=== PATIENT | male | born 1950 | race Caucasian/White ===

== ENCOUNTER → 2016-09-20 | Outpatient (CLI) | payer MEDICARE, OTHER ==
[2016-03-27 14:15] VITALS: BP 96/54
[~2016-09-20] MED LIST: ASPI325T8 PO; ATORVASTATIN CA80 MG PO; BACL10TA PO; CHOL10003 AD; CLOP75TA PO; CYAN25008 PO; DURAMORPH PO; FLAX1CAP PO; GINS100C3 PO; HUM100VI5 SQ; HYDR-2762 PO; INSU100C SQ; LISI40TA PO; LOVA10TA PO; METF-620 PO; METO50TA2 PO; NIAC500T9 PO; NITR0.4T SL; PANT40TA5 PO; SITA100T PO; TAMS0.4C2 PO; UBID100T5 PO
--- NOTE | 2016-09-20 16:31 | KCIC ---
History: Chronic joint pain. Comparison: None. Findings: AP and frog-leg views of the right hip. No acute fracture or dislocation is identified. Mild degeneration is seen with minimal osteophyte formation. AP and frog-leg views of the left hip. No acute fracture or dislocation is identified. Mild degeneration is seen with minimal marginal osteophyte formation. Impression: Mild bilateral hip degeneration. Electronically signed by: Marciano Leblanc MD (09/20/2016 4:28 PM)
--- NOTE | 2016-09-20 16:34 | KCIC ---
History: Chronic joint pain. Comparison: None. Findings: AP, lateral, and oblique views of the right knee. No acute fracture or dislocation is identified. There is evidence of joint effusion. Mild-moderate medial compartment degeneration is seen with marginal osteophyte formation and mild loss of joint space. Lateral and patellofemoral compartments demonstrate mild degeneration with preservation of the joint space. AP, lateral, and oblique views of the left knee. No acute fracture or dislocation is identified. Mild tricompartment degeneration is seen. There is evidence of joint effusion. Mild heterotopic calcification is seen adjacent to the medial femoral metaphysis, may represent previous medial collateral ligamentous injury (Dayton-Stieda). Impression: 1. No acute osseous traumatic injury identified in either knee. 2. Bilateral knee joint effusions are suspected. 3. Tricompartmental degeneration of both knees, right worse than left. Electronically signed by: Marciano Leblanc MD (09/20/2016 4:31 PM)
--- NOTE | 2016-09-20 16:38 | KCIC ---
Bilateral ankles Indication:Chronic joint pain Findings: Right ankle: The ankle mortise is intact. The talar dome is well centered within the tibial plafond. No fractures are identified. Ankle joint space is well-maintained. There is no widening of the tibiofibular syndesmosis. Soft tissues are unremarkable. Left ankle: The ankle mortise is intact. The talar dome is well centered within the tibial plafond. No fractures are identified. Ankle joint space is well-maintained. There is no widening of the tibiofibular syndesmosis. Soft tissues are unremarkable. Impression: Unremarkable exam of the bilateral ankles. Electronically signed by: Vipin Alvarez MD (09/20/2016 4:35 PM)
--- NOTE | 2016-09-20 16:42 | KCIC ---
3 views bilateral feet INDICATION: Chronic joint pain FINDINGS: The lateral view of the left foot demonstrates a possible nondisplaced avulsion fracture at the base of the fifth metatarsal. No erosive lesions. Joint spaces are well-maintained. There is mild metatarsus primus varus with hallux valgus deformity of the left foot. IMPRESSION: Possible nondisplaced avulsion fracture from the base of the fifth metatarsal of the left foot. Correlate for focal pain in this location. This could represent a projectional artifact. Mild bunion deformity on the left. Electronically signed by: Vipin Alvarez MD (09/20/2016 4:39 PM)
== END | disposition home or self-care (01) ==
LOC: KCIC 15:15
PROVIDERS: ATTEND Family Medicine
DX: M20.12 Hallux valgus (acquired), left foot (principal); M21.172 Varus deformity, not elsewhere classified, left ankle; M21.612 Bunion of left foot
CPT/HCPCS: 73502; 73562; 73610; 73630

== ENCOUNTER → 2016-11-12 | Outpatient (CLI) | payer MEDICARE, OTHER ==
[2016-03-27 14:15] VITALS: BP 96/54
--- NOTE | 2016-11-13 11:42 | RAD ---
APPROVED REPORT Patient Location: OUT-PATIENT Indications Rest Pain:Bilaterally VELOCITY AND DOPPLER WAVEFORM ANALYSIS RIGHT cm/secWaveformSeverity LEFT c m/secWaveformSeverity Ext Iliac Art. 155.0TriphasicExt Iliac Art. 174.0Triphasic pCFA 165.0TriphasicpCFA 133.0Triphasic dCFA 130.0TriphasicdCFA 103.0Triphasic Prof Fem Art. 90.0BiphasicProf Fem Art. 57.0Biphasic Fem Art Prox. 124.0TriphasicFem Art Prox. 117.0Triphasic Fem Art Mid. 144.0TriphasicFem Art Mid. 151.0Triphasic Fem Art Dist. 140.0TriphasicFem Art Dist. 115.0Triphasic Pop Art(AK) 107.0TriphasicPop Art(AK) 162.0Triphasic Pop Art(BK) 105.0TriphasicPop Art(BK) 141.0Triphasic SEWER PIPE PRESS OPERATOR Prox. 155.0TriphasicPTA Prox. 103.0Triphasic SEWER PIPE PRESS OPERATOR Dist. 114.0TriphasicPTA Dist. 156.0Triphasic Per Art Mid. 77.0BiphasicPer Art Mid. 87.0Biphasic JOSE CARLOS Prox. 89.0BiphasicATA Prox. 67.0Triphasic Findings Uriarte scale images of the bilateral lower extremity arterial vessels do not reveal any significant ath erosclerotic burden. Spectral waveforms and color Doppler are mostly triphasic and without turbulence. No high-grade flow- limiting stenosis is identified in the bilateral lower extremities. Critical Notification Critical Value: No <Conclusion> 1. No high-grade flow-limiting stenosis identified bilaterally with three-vessel runoff below the kne e.
== END | disposition home or self-care (01) ==
LOC: US 15:00
PROVIDERS: ATTEND Internal Medicine Cardiovascular Disease
DX: M79.604 Pain in right leg (principal); M79.605 Pain in left leg
CPT/HCPCS: 93925

== ENCOUNTER 2017-11-09 15:01 | Inpatient (IN) | payer MEDICARE, OTHER ==
[~2017-11-09] VITALS: Ht 180.3 cm; Wt 111.3 kg
[~2017-11-09 15:01] MED LIST changes: +LISI-130 PO; -LISI40TA PO; -METF-620 PO; +METF10003 PO; -METO50TA2 PO; +METO50TA6 PO
[2017-11-09] MEDS ORDERED: IV NORMAL SALINE 1000ML BAG 1,000 ML IV SCH (15:23)
--- NOTE | 2017-11-09 15:36 | PHYS DOC ---
Past Medical History Past Medical History: CAD, Diabetes-Type II, Hypertension Past Surgical History: Angioplasty, Other Smoking: Cigarettes (The patient is a nonsmoker.) Alcohol Use: None Drug Use: None Adult General Chief Complaint Chief Complaint: ALTERED MENTAL STATUS HPI HPI Patient is a 67-year-old male who presents to the emergency department for evaluation. According to the patient's , the patient has had periods of confusion over the past several days, and has also been complaining of shortness of breath. The patient denies shortness of breath. He does not appear confused at this time. He denies any pain, including any headache, or vision changes. He states he developed some shaking in both of his hands over the past few days, and began dropping things today. He states he noticed it mostly in his right hand which is what he uses, but he does not exhibit any muscle weakness and he is ambulatory with a stable gait at this time. He denies any chest pain or shortness of breath. He denies any numbness or focal weakness. There are no alleviating or exacerbating factors to his symptoms. The patient's states he has been walking into lyman because he loses his balance. Bedside patient does have an extensive cardiac history and history of diabetes. Blood sugar upon arrival is 131. Review of Systems Review of Systems Constitutional: Denies fever or chills [] Eyes: Denies change in visual acuity, redness, or eye pain [] HENT: Denies nasal congestion or sore throat [] Respiratory: Denies cough or pleuritic chest pain [] Cardiovascular: No additional information not addressed in HPI [] GI: Denies abdominal pain, nausea, vomiting, bloody stools or diarrhea [] : Denies dysuria or hematuria [] Musculoskeletal: Denies back pain or joint pain [] Integument: Denies rash or skin lesions [] Neurologic: Denies headache, focal weakness or sensory changes [] Endocrine: Denies polyuria or polydipsia [] All other systems were reviewed and found to be within normal limits, except as documented in this note. Current Medications Current Medications Current Medications Medications (Trade) Dose Ordered Sig/Karly Start Time Stop Time Status Last Admin Dose Admin Sodium Chloride 1,000 ml @ 1,000 mls/hr 1X ONCE 11/09/17 16:30 11/09/17 17:29 8/12/18 16:20 1,000 MLS/HR Allergies Allergies Allergies Coded Allergies Type Severity Reaction Last Updated Verified Qirmnqm-Zoj-Fgy Reductase Inhibitor Allergy Intermediate 06/30/15 Yes Physical Exam Physical Exam PHYSICAL EXAM: CONSTITUTIONAL: Well developed, well nourished HEAD: normocephalic, atraumatic EENT: PERRL, EOMI. there is questionable lateral nystagmus on left lateral gaze , which was noted once, but is not reproducible reliably. Conjunctivae normal color, sclerae non-icteric; moist mucous membranes. NECK: Supple, non-tender; no meningismus. LUNGS: Lungs CTA, breathing even and unlabored. Normal air movement. HEART: Regular rate and rhythm, no murmur CHEST: No deformity; non-tender ABDOMEN: The abdomen is soft, and non-tender, no masses or bruits. EXTREM: Normal ROM; no deformity, no calf tenderness. Normal pulses palpable in all extremities. There is no pedal edema. SKIN: No rash; no diaphoresis NEURO: Alert; normal speech and cognition; CN's grossly intact; strength grossly intact without focal deficit. Weufga-pydn-qafkky and heel elizalde testing are normal. BACK: No CVA TTP. Current Patient Data Vital Signs Vital Signs Date Time Temp Pulse Resp B/P (MAP) Pulse Ox O2 Delivery O2 Flow Rate FiO2 11/09/17 16:10 66 20 94 Lab Values Laboratory Tests Test 11/09/17 15:23 11/09/17 15:55 O2 Saturation 94 % (92-99) Arterial Blood pH 7.27 (7.35-7.45) L Arterial Blood pCO2 at Patient Temp 42 mmHg (35-46) Arterial Blood pO2 at Patient Temp 83 mmHg (65-108) Arterial Blood HCO3 19 mmol/L (21-28) L Arterial Blood Base Excess -8 mmol/L (-3-3) L Oxyhemoglobin 93.6 % Methemoglobin 0.2 % (0.0-1.9) Carbon Monoxide, Quantitative 0.6 % (0.0-1.9) FiO2 28.0 White Blood Count 12.4 x10^3/uL (4.0-11.0) H Red Blood Count 4.53 x10^6/uL (4.30-5.70) Hemoglobin 12.5 g/dL (13.0-17.5) L Hematocrit 38.5 % (39.0-53.0) L Mean Corpuscular Volume 85 fL (79-100) Mean Corpuscular Hemoglobin 28 pg (25-35) Mean Corpuscular Hemoglobin Concent 32 g/dL (31-37) Red Cell Distribution Width 13.9 % (11.5-14.5) Platelet Count 269 x10^3/uL (140-400) Neutrophils (%) (Auto) 76 % (31-73) H Lymphocytes (%) (Auto) 12 % (24-48) L Monocytes (%) (Auto) 9 % (0-9) Eosinophils (%) (Auto) 1 % (0-3) Basophils (%) (Auto) 1 % (0-3) Neutrophils # (Auto) 9.4 x10^3uL (1.8-7.7) H Lymphocytes # (Auto) 1.5 x10^3/uL (1.0-4.8) Monocytes # (Auto) 1.2 x10^3/uL (0.0-1.1) H Eosinophils # (Auto) 0.2 x10^3/uL (0.0-0.7) Basophils # (Auto) 0.1 x10^3/uL (0.0-0.2) Sodium Level 134 mmol/L (136-145) L Potassium Level 4.8 mmol/L (3.5-5.1) Chloride Level 97 mmol/L (98-107) L Carbon Dioxide Level 21 mmol/L (21-32) Anion Gap 16 (6-14) H Blood Urea Nitrogen 78 mg/dL (8-26) H Creatinine 5.8 mg/dL (0.7-1.3) H Estimated GFR (Cockcroft-Gault) 9.8 BUN/Creatinine Ratio 13 (6-20) Glucose Level 138 mg/dL (70-99) H Lactic Acid Level 1.0 mmol/L (0.4-2.0) Calcium Level 8.9 mg/dL (8.5-10.1) Magnesium Level 2.5 mg/dL (1.8-2.4) H Total Bilirubin 0.5 mg/dL (0.2-1.0) Aspartate Amino Transferase (AST) 35 U/L (15-37) Alanine Aminotransferase (ALT) 41 U/L (16-63) Alkaline Phosphatase 94 U/L (46-116) Creatine Kinase 344 U/L (39-308) H Creatine Kinase MB (Mass) 4.9 ng/mL (0.0-3.6) H Creatine Kinase MB Relative Index 1.4 % (0-4) Troponin I Quantitative < 0.017 ng/mL (0.000-0.055) BA-Ijp-G-Type Natriuretic Peptide 478 pg/mL (0-124) H Total Protein 7.2 g/dL (6.4-8.2) Albumin 4.2 g/dL (3.4-5.0) Albumin/Globulin Ratio 1.4 (1.0-1.7) Lipase 117 U/L (73-393) Thyroid Stimulating Hormone (TSH) 3.116 uIU/mL (0.358-3.74) Free Thyroxine 0.99 ng/dL (0.76-1.46) Laboratory Tests 11/09/17 15:55 Laboratory Tests 11/09/17 15:55 EKG EKG [Normal sinus rhythm a rate of 60 beats for minute, normal axis, right bundle- branch block, first-degree AV block, there are no acute ischemic ST/T changes. Nonspecific changes are present.] Radiology/Procedures Radiology/Procedures [PROCEDURE: PORTABLE CHEST 1V AP portable chest. HISTORY: Weakness, short of breath Portable AP view was taken of the chest. Lungs are free of infiltrates. The left costophrenic angle is not entirely included on the current film. There is no effusion. Heart is normal in size. IMPRESSION: 1. No acute chest disease.] PROCEDURE: CT HEAD WO CONTRAST CT of the head without contrast, 11/09/2017: HISTORY: Dizziness, altered mental status The ventricles are within normal limits in size. There is no shift of the midline structures. There is no evidence of acute intracranial hemorrhage or mass effect. There are several coarse calcifications in the lateral aspect of the left cerebellar hemisphere. This is a nonspecific finding which may be due to a previous inflammatory, infectious or traumatic insult. No mass effect is seen to suggest an active process. IMPRESSION: 1. Small nonspecific left cerebellar calcifications. 2. No acute intracranial abnormality is detected. Course & Med Decision Making Course & Med Decision Making Review of the patient's labs from Pertinent Labs and Imaging studies reviewed. ( See chart for details) [4:40 PM:The patient's condition remains stable. I spoke with the hospitalist , who accepted the patient to the hospital for further evaluation and treatment. Review of the patient's labs from 2016, his most recent visits to this facility, revealed he had normal renal function at that time.] Dragon Disclaimer Dragon Disclaimer This electronic medical record was generated, in whole or in part, using a voice recognition dictation system. Departure Departure Impression: Primary Impression: Acute renal failure Disposition: ADMITTED INPATIENT Admitting Physician: Xie. Pollock Condition: STABLE Referrals: MARY BERGERON MD (PCP) MELI DELUCA MD Nov 09, 2017 15:36
[2017-11-09 15:39] LABS: BASE EXCESS COOX -8 mmol/L (-3-3); HCO3 COOX 19 mmol/L (21-28); METHEMOGLOBIN 0.2 % (0.0-1.9); OXYHEMOGLOBIN 93.6 %; PCO2 COOX 42 mmHg (35-46); PO2 COOX 83 mmHg (65-108); SAT O2 COOX 94 % (92-99)
--- NOTE | 2017-11-09 15:52 | RAD ---
CT of the head without contrast, 11/09/2017: HISTORY: Dizziness, altered mental status The ventricles are within normal limits in size. There is no shift of the midline structures. There is no evidence of acute intracranial hemorrhage or mass effect. There are several coarse calcifications in the lateral aspect of the left cerebellar hemisphere. This is a nonspecific finding which may be due to a previous inflammatory, infectious or traumatic insult. No mass effect is seen to suggest an active process. IMPRESSION: 1. Small nonspecific left cerebellar calcifications. 2. No acute intracranial abnormality is detected. PQRS Compliance Statement: One or more of the following individualized dose reduction techniques were utilized for this examination: 1. Automated exposure control 2. Adjustment of the mA and/or kV according to patient size 3. Use of iterative reconstruction technique Electronically signed by: Aquiles Moreno MD (11/09/2017 3:48 PM) [facility]
[2017-11-09 16:13] LABS: BASO # 0.1 x10^3/uL (0.0-0.2); BASO % 1 % (0-3); EOS # 0.2 x10^3/uL (0.0-0.7); EOS % 1 % (0-3); HEMATOCRIT 38.5 % (39.0-53.0); HEMOGLOBIN 12.5 g/dL (13.0-17.5); LYMPH # 1.5 x10^3/uL (1.0-4.8); LYMPH % 12 % (24-48); MEAN CORPUSCULAR HEMOGLOBIN 28 pg (25-35); MEAN CORPUSCULAR HGB CONC 32 g/dL (31-37); MEAN CORPUSCULAR VOLUME 85 fL (79-100); MONO # 1.2 x10^3/uL (0.0-1.1); MONO % 9 % (0-9); NEUT # 9.4 x10^3uL (1.8-7.7); NEUT % 76 % (31-73); PLATELET COUNT 269 x10^3/uL (140-400); RED BLOOD COUNT 4.53 x10^6/uL (4.30-5.70); RED CELL DISTRIBUTION WIDTH 13.9 % (11.5-14.5); WHITE BLOOD COUNT 12.4 x10^3/uL (4.0-11.0)
--- NOTE | 2017-11-09 16:13 | RAD ---
AP portable chest. HISTORY: Weakness, short of breath Portable AP view was taken of the chest. Lungs are free of infiltrates. The left costophrenic angle is not entirely included on the current film. There is no effusion. Heart is normal in size. IMPRESSION: 1. No acute chest disease. Electronically signed by: Feliz Vergara MD (11/09/2017 4:09 PM) [id number]
[2017-11-09 16:21] LABS: CALCIUM 8.9 mg/dL (8.5-10.1); CREATININE 5.8 mg/dL (0.7-1.3); GFR 9.8; POTASSIUM 4.8 mmol/L (3.5-5.1)
[2017-11-09] MEDS ORDERED: IV NORMAL SALINE 1000ML BAG 1,000 ML IV ONE ×2 (16:30→16:45)
[2017-11-09 16:34] LABS: ALBUMIN 4.2 g/dL (3.4-5.0); ALBUMIN/GLOBULIN RATIO 1.4 (1.0-1.7); FREE T4 0.99 ng/dL (0.76-1.46); MAGNESIUM 2.5 mg/dL (1.8-2.4); THYROID STIM HORMONE (TSH) 3.116 uIU/mL (0.358-3.74); TOTAL BILIRUBIN 0.5 mg/dL (0.2-1.0); TOTAL PROTEIN 7.2 g/dL (6.4-8.2)
--- NOTE | 2017-11-09 18:13 | PDOC1 ---
History and Physical Date of Admission Date of Admission 11/09/17 Identification/Chief Complaint Chief Complaint fatigue Source Source: Chart review, Patient History of Present Illness History of Present Illness HPI HPI Patient is a 67-year-old male who presents to the emergency department for evaluation for weakness. pt has been feeling fatigue, generalized weakness for 1 week, worse yesterday. one time non bloody non bli vomiting today. He also feels very dizzy, needs to lean on the wall when walk. Pt denies fever, chills, cough, sob, abd pain, has chonic constipation, no diarrhea. said he was confused too, and both hands are shaky. unsteady gait. He said he drink plenty of water and urination is good. took gabapentin as per new meds, denies NSAIDS. In ER, cR 5.8, no h/o CKD. Past Medical History Cardiovascular: CAD, HTN, MO, Hyperlipidemia Pulmonary: No pertinent hx GI: Constipation, GERD Heme/Onc: No pertinent hx Hepatobiliary: No pertinent hx Psych: No pertinent hx Rheumatologic: No pertinent hx Infectious disease: No pertinent hx Renal/: No pertinent hx Endocrine: Diabetes Past Surgical History Past Surgical History: Other Family History Family History: Diabetes, Heart Disease, Hypertension Social History Smoke: No ALCOHOL: none Drugs: None Current Problem List Problem List Problems Medical Problems: (1) Acute renal failure Status: Acute Current Medications Current Medications Current Medications Medications (Trade) Dose Ordered Sig/Karly Start Time Stop Time Status Last Admin Dose Admin Sodium Chloride 1,000 ml @ 100 mls/hr 1X ONCE 11/09/17 16:45 11/10/17 02:44 Allergies Allergies Allergies Coded Allergies Type Severity Reaction Last Updated Verified Zjgjutr-Mbb-Qym Reductase Inhibitor Allergy Intermediate 06/30/15 Yes ROS Review of System CONSTITUTIONAL: No fever or chills EYES: No recent changes SKIN: No rash or itching CARDIOVASCULAR: No chest pain, syncope, palpitations, or edema RESPIRATORY: No SOB or cough GASTROINTESTINAL: No nausea, vomiting or abdominal pain NEUROLOGICAL: No headaches or weakness ENDOCRINE: No cold or heat intolerance GENITOURINARY: No urgency or frequency of urination MUSCULOSKELETAL: No back pain or joint pain LYMPHATICS: No enlarged lymph nodes PSYCHIATRIC: No anxiety or depression Physical Exam Physical Exam GEN.: No apparent distress. Alert and oriented. HEENT: Head is normocephalic, atraumatic NECK: Supple. LUNGS: Clear to auscultation. HEART: RRR, S1, S2 present. Peripheral pulses intact ABDOMEN: Soft, nontender. Positive bowel sounds. EXTREMITIES: Without any cyanosis. NEUROLOGIC: Normal speech, normal tone PSYCHIATRIC: Normal affect, normal mood. SKIN: No ulcerations Vitals Vitals Vital Signs Date Time Temp Pulse Resp B/P (MAP) Pulse Ox O2 Delivery O2 Flow Rate FiO2 11/09/17 17:10 58 20 97 11/09/17 15:01 98.1 110/58 (75) Room Air 2.0 98.1 Labs Labs Laboratory Tests Test 11/09/17 15:23 11/09/17 15:55 O2 Saturation 94 % (92-99) Arterial Blood pH 7.27 (7.35-7.45) Arterial Blood pCO2 at Patient Temp 42 mmHg (35-46) Arterial Blood pO2 at Patient Temp 83 mmHg (65-108) Arterial Blood HCO3 19 mmol/L (21-28) Arterial Blood Base Excess -8 mmol/L (-3-3) Oxyhemoglobin 93.6 % Methemoglobin 0.2 % (0.0-1.9) Carbon Monoxide, Quantitative 0.6 % (0.0-1.9) FiO2 28.0 White Blood Count 12.4 x10^3/uL (4.0-11.0) Red Blood Count 4.53 x10^6/uL (4.30-5.70) Hemoglobin 12.5 g/dL (13.0-17.5) Hematocrit 38.5 % (39.0-53.0) Mean Corpuscular Volume 85 fL (79-100) Mean Corpuscular Hemoglobin 28 pg (25-35) Mean Corpuscular Hemoglobin Concent 32 g/dL (31-37) Red Cell Distribution Width 13.9 % (11.5-14.5) Platelet Count 269 x10^3/uL (140-400) Neutrophils (%) (Auto) 76 % (31-73) Lymphocytes (%) (Auto) 12 % (24-48) Monocytes (%) (Auto) 9 % (0-9) Eosinophils (%) (Auto) 1 % (0-3) Basophils (%) (Auto) 1 % (0-3) Neutrophils # (Auto) 9.4 x10^3uL (1.8-7.7) Lymphocytes # (Auto) 1.5 x10^3/uL (1.0-4.8) Monocytes # (Auto) 1.2 x10^3/uL (0.0-1.1) Eosinophils # (Auto) 0.2 x10^3/uL (0.0-0.7) Basophils # (Auto) 0.1 x10^3/uL (0.0-0.2) Sodium Level 134 mmol/L (136-145) Potassium Level 4.8 mmol/L (3.5-5.1) Chloride Level 97 mmol/L (98-107) Carbon Dioxide Level 21 mmol/L (21-32) Anion Gap 16 (6-14) Blood Urea Nitrogen 78 mg/dL (8-26) Creatinine 5.8 mg/dL (0.7-1.3) Estimated GFR (Cockcroft-Gault) 9.8 BUN/Creatinine Ratio 13 (6-20) Glucose Level 138 mg/dL (70-99) Lactic Acid Level 1.0 mmol/L (0.4-2.0) Calcium Level 8.9 mg/dL (8.5-10.1) Magnesium Level 2.5 mg/dL (1.8-2.4) Total Bilirubin 0.5 mg/dL (0.2-1.0) Aspartate Amino Transf (AST/SGOT) 35 U/L (15-37) Alanine Aminotransferase (ALT/SGPT) 41 U/L (16-63) Alkaline Phosphatase 94 U/L (46-116) Creatine Kinase 344 U/L (39-308) Creatine Kinase MB (Mass) 4.9 ng/mL (0.0-3.6) Creatine Kinase MB Relative Index 1.4 % (0-4) Troponin I Quantitative < 0.017 ng/mL (0.000-0.055) DQ-Kxw-D-Type Natriuretic Peptide 478 pg/mL (0-124) Total Protein 7.2 g/dL (6.4-8.2) Albumin 4.2 g/dL (3.4-5.0) Albumin/Globulin Ratio 1.4 (1.0-1.7) Lipase 117 U/L (73-393) Thyroid Stimulating Hormone (TSH) 3.116 uIU/mL (0.358-3.74) Free Thyroxine 0.99 ng/dL (0.76-1.46) Acetone Level Neg (NEG) Laboratory Tests Test 11/09/17 15:23 11/09/17 15:55 O2 Saturation 94 % (92-99) Arterial Blood pH 7.27 (7.35-7.45) Arterial Blood pCO2 at Patient Temp 42 mmHg (35-46) Arterial Blood pO2 at Patient Temp 83 mmHg (65-108) Arterial Blood HCO3 19 mmol/L (21-28) Arterial Blood Base Excess -8 mmol/L (-3-3) Oxyhemoglobin 93.6 % Methemoglobin 0.2 % (0.0-1.9) Carbon Monoxide, Quantitative 0.6 % (0.0-1.9) FiO2 28.0 White Blood Count 12.4 x10^3/uL (4.0-11.0) Red Blood Count 4.53 x10^6/uL (4.30-5.70) Hemoglobin 12.5 g/dL (13.0-17.5) Hematocrit 38.5 % (39.0-53.0) Mean Corpuscular Volume 85 fL (79-100) Mean Corpuscular Hemoglobin 28 pg (25-35) Mean Corpuscular Hemoglobin Concent 32 g/dL (31-37) Red Cell Distribution Width 13.9 % (11.5-14.5) Platelet Count 269 x10^3/uL (140-400) Neutrophils (%) (Auto) 76 % (31-73) Lymphocytes (%) (Auto) 12 % (24-48) Monocytes (%) (Auto) 9 % (0-9) Eosinophils (%) (Auto) 1 % (0-3) Basophils (%) (Auto) 1 % (0-3) Neutrophils # (Auto) 9.4 x10^3uL (1.8-7.7) Lymphocytes # (Auto) 1.5 x10^3/uL (1.0-4.8) Monocytes # (Auto) 1.2 x10^3/uL (0.0-1.1) Eosinophils # (Auto) 0.2 x10^3/uL (0.0-0.7) Basophils # (Auto) 0.1 x10^3/uL (0.0-0.2) Sodium Level 134 mmol/L (136-145) Potassium Level 4.8 mmol/L (3.5-5.1) Chloride Level 97 mmol/L (98-107) Carbon Dioxide Level 21 mmol/L (21-32) Anion Gap 16 (6-14) Blood Urea Nitrogen 78 mg/dL (8-26) Creatinine 5.8 mg/dL (0.7-1.3) Estimated GFR (Cockcroft-Gault) 9.8 BUN/Creatinine Ratio 13 (6-20) Glucose Level 138 mg/dL (70-99) Lactic Acid Level 1.0 mmol/L (0.4-2.0) Calcium Level 8.9 mg/dL (8.5-10.1) Magnesium Level 2.5 mg/dL (1.8-2.4) Total Bilirubin 0.5 mg/dL (0.2-1.0) Aspartate Amino Transf (AST/SGOT) 35 U/L (15-37) Alanine Aminotransferase (ALT/SGPT) 41 U/L (16-63) Alkaline Phosphatase 94 U/L (46-116) Creatine Kinase 344 U/L (39-308) Creatine Kinase MB (Mass) 4.9 ng/mL (0.0-3.6) Creatine Kinase MB Relative Index 1.4 % (0-4) Troponin I Quantitative < 0.017 ng/mL (0.000-0.055) DH-Eut-F-Type Natriuretic Peptide 478 pg/mL (0-124) Total Protein 7.2 g/dL (6.4-8.2) Albumin 4.2 g/dL (3.4-5.0) Albumin/Globulin Ratio 1.4 (1.0-1.7) Lipase 117 U/L (73-393) Thyroid Stimulating Hormone (TSH) 3.116 uIU/mL (0.358-3.74) Free Thyroxine 0.99 ng/dL (0.76-1.46) Acetone Level Neg (NEG) VTE Prophylaxis Ordered VTE Prophylaxis Devices: Yes VTE Pharmacological Prophylaxi: Yes Assessment/Plan Assessment/Plan generalize weakness with JUSTICE JUSTICE, vasomotor vs ATN metabolic acidosis dm2 htn H/O CAD WITH pci 4ys ago stable systolic chf ef was 40% plan: renal consult us renal ivf 2L in er, CONT NS 100cc/h hold some po meds ,need verify home meds ssi labs daily DVT ppx PTOT OLI EVERETT MD Nov 09, 2017 18:13
[2017-11-09] MEDS ORDERED: ACETAMINOPHEN 325 MG TABLET. PO PRN (18:15)
[2017-11-09] MEDS ORDERED: ONDANSETRON PF 4 MG/2 ML VIAL. IV PRN (18:15)
[2017-11-09] MEDS ORDERED: DEXTROSE 50% 25 GM / 50ML DISP.SYRIN. IV PRN (18:15)
[2017-11-09] MEDS ORDERED: hydrALAZINE 20 MG/ML VIAL. IVP PRN (18:15)
[2017-11-09] MEDS ORDERED: DOCUSATE SODIUM 100 MG CAPSULE. PO PRN (18:15)
[2017-11-09] MEDS ORDERED: traMADol 50 MG TABLET PO PRN (18:15)
[2017-11-09] MEDS ORDERED: MORPHINE SULFATE 2 MG/ML DISP.SYRIN. IV PRN (18:15)
[2017-11-09 18:30] VITALS: BP 117/61
[2017-11-09] MEDS: HEPARIN PF for SUB-Q USE 5,000 UNIT/0.5 ML VIAL. SQ SCH (20:02)
[2017-11-09] MEDS: IV NORMAL SALINE 1000ML BAG 1,000 ML IV SCH (20:03)
[2017-11-09] MEDS ORDERED: HYDR-2758 PO (20:50)
[2017-11-09] MEDS ORDERED: MORP15TA3 PO (20:50)
[2017-11-09] MEDS ORDERED: LABE200T4 PO (20:50)
[2017-11-09] MEDS ORDERED: DOCU-109 PO (20:50)
[2017-11-09] MEDS ORDERED: MELO15TA23 PO (20:50)
[2017-11-09] MEDS ORDERED: TRAZ-85 PO (20:51)
[2017-11-09] MEDS: traZODone 50 MG TABLET. PO SCH (21:47)
[2017-11-09] MEDS: MORPHINE ER 15 MG TABLET.ER PO SCH (21:48)
[2017-11-09 21:55] LABS: BILIRUBIN,URINE MODERATE (NEG); NITRITE,URINE NEGATIVE (NEG); PROTEIN,URINE 30 mg/dL (NEG-TRACE); UROBILINOGEN,URINE 0.2 mg/dL (0.2 mg/dL)
[2017-11-09] MEDS ORDERED: GABA600T14 PO (21:57)
[2017-11-09 22:02] LABS: AMPHETAMINE/METHAMPHETAMINE NEG (NEG); BARBITURATES NEG (NEG); BENZODIAZEPINES NEG (NEG); CANNABINOIDS NEG (NEG); COCAINE NEG (NEG); METHADONE NEG (NEG); OPIATES POS (NEG); PHENCYCLIDINE NEG (NEG)
[2017-11-09 22:04] LABS: CLARITY,URINE CLEAR; COLOR,URINE DK YELLOW
[2017-11-09 22:07] LABS: BACTERIA,URINE 0 /HPF (0-FEW); HYALINE CASTS, URINE MANY /HPF; RBC,URINE RARE /HPF (0-2); WBC,URINE RARE /HPF (0-4)
[2017-11-09 23:41] VITALS: BP 116/56
[2017-11-10 03:26] VITALS: BP 142/67
[2017-11-10 04:28] LABS: BASO % 0 % (0-3); EOS # 0.2 x10^3/uL (0.0-0.7); EOS % 1 % (0-3); HEMATOCRIT 35.9 % (39.0-53.0); HEMOGLOBIN 11.7 g/dL (13.0-17.5); LYMPH # 1.8 x10^3/uL (1.0-4.8); LYMPH % 13 % (24-48); MEAN CORPUSCULAR HEMOGLOBIN 28 pg (25-35); MEAN CORPUSCULAR HGB CONC 33 g/dL (31-37); MEAN CORPUSCULAR VOLUME 86 fL (79-100); MONO # 1.3 x10^3/uL (0.0-1.1); MONO % 9 % (0-9); NEUT # 11.1 x10^3uL (1.8-7.7); NEUT % 77 % (31-73); PLATELET COUNT 240 x10^3/uL (140-400); RED BLOOD COUNT 4.16 x10^6/uL (4.30-5.70); RED CELL DISTRIBUTION WIDTH 14.2 % (11.5-14.5); WHITE BLOOD COUNT 14.5 x10^3/uL (4.0-11.0)
[2017-11-10 04:47] LABS: ALBUMIN/GLOBULIN RATIO 1.3 (1.0-1.7); CALCIUM 8.6 mg/dL (8.5-10.1); CREATININE 5.6 mg/dL (0.7-1.3); GFR 10.2; POTASSIUM 4.7 mmol/L (3.5-5.1); TOTAL BILIRUBIN 0.4 mg/dL (0.2-1.0)
[2017-11-10] MEDS: IV NORMAL SALINE 1000ML BAG 1,000 ML IV SCH ×2 (06:07→17:29)
[2017-11-10] MEDS: HEPARIN PF for SUB-Q USE 5,000 UNIT/0.5 ML VIAL. SQ SCH ×3 (06:10→22:01)
--- NOTE | 2017-11-10 06:27 | EKG ---
[facility] [address] [place] [address] Test Date: 2017-11-09 Test Time: 15:27:36 Pat Name: BEAR RODRIGUEZ Department: Room: Gender: M [employer]: : 1950 Requested By: MELI DELUCA Order Number: [id number] Reading MD: Measurements Intervals [place] Rate: 68 P: 46 WA: 220 QRS: 62 QRSD: 138 T: -6 QT: 426 QTc: 458 Interpretive Statements SINUS RHYTHM PROLONGED WA INTERVAL LEFT ATRIAL ABNORMALITY NON SPECIFIC INTRAVENTRICULAR BLOCK ABNORMAL ECG RI6.01 No previous ECG available for comparison
[2017-11-10 06:45] VITALS: BP 148/76
[2017-11-10] MEDS: INSULIN LISPRO 300 UNITS/3 ML INSULN.PEN. SQ SCH ×3 (07:54→17:32)
[2017-11-10] MEDS: MORPHINE ER 15 MG TABLET.ER PO SCH ×2 (08:06→21:57)
--- NOTE | 2017-11-10 08:45 | RAD ---
CLINICAL HISTORY: RENAL FAILURE COMPARISON: None available. TECHNIQUE: Ultrasound examination of the bilateral kidneys and urinary bladder was performed. FINDINGS: The right kidney measures 11.9 cm in bipolar length. The renal cortex is normal in thickness. Renal echogenicity is normal. There is no evidence for hydronephrosis, shadowing renal calculus or focal abnormality . The left kidney measures 12.9 cm in bipolar length. The renal cortex is normal in thickness. Renal echogenicity is normal. There is no evidence for hydronephrosis, shadowing renal calculus or focal abnormality. Images of the partially filled urinary bladder are unremarkable. Ureteral jets are not definitively visualized. Bladder volume 288 mL. IMPRESSION: 1. Unremarkable sonographic survey of the kidneys. Electronically signed by: Jose Miller MD (11/10/2017 8:41 AM) [facility]
--- NOTE | 2017-11-10 09:17 | PDOC ---
PROGRESS NOTES Chief Complaint Chief Complaint renal failure, heat exposure History of Present Illness History of Present Illness Assessment/Plan Assessment/Plan generalize weakness with JUSTICE JUSTICE, vasomotor vs ATN metabolic acidosis dm2 htn H/O CAD WITH pci 4ys ago stable systolic chf ef was 40% plan: renal consult us renal ivf 2L in er, CONT NS 100cc/h hold some po meds , ssi labs daily DVT ppx PTOT Vitals Vitals Vital Signs Date Time Temp Pulse Resp B/P (MAP) Pulse Ox O2 Delivery O2 Flow Rate FiO2 11/10/17 08:06 Room Air 11/10/17 06:45 98.0 80 17 148/76 (100) 95 98.0 11/09/17 15:01 2.0 Physical Exam Physical Exam GEN.: No apparent distress. Alert and oriented. HEENT: Head is normocephalic, atraumatic NECK: Supple. LUNGS: Clear to auscultation. HEART: RRR, S1, S2 present. Peripheral pulses intact ABDOMEN: Soft, nontender. Positive bowel sounds. EXTREMITIES: Without any cyanosis. NEUROLOGIC: Normal speech, normal tone PSYCHIATRIC: Normal affect, normal mood. SKIN: No ulcerations Heart: Regular rate Lungs: Clear Abdomen: Normal bowel sounds, Soft Skin: No breakdown Labs LABS Laboratory Tests Test 11/09/17 15:21 11/09/17 15:23 11/09/17 15:55 11/09/17 20:27 Glucose (Fingerstick) 131 mg/dL (70-99) 137 mg/dL (70-99) O2 Saturation 94 % (92-99) Arterial Blood pH 7.27 (7.35-7.45) Arterial Blood pCO2 at Patient Temp 42 mmHg (35-46) Arterial Blood pO2 at Patient Temp 83 mmHg (65-108) Arterial Blood HCO3 19 mmol/L (21-28) Arterial Blood Base Excess -8 mmol/L (-3-3) Oxyhemoglobin 93.6 % Methemoglobin 0.2 % (0.0-1.9) Carbon Monoxide, Quantitative 0.6 % (0.0-1.9) FiO2 28.0 White Blood Count 12.4 x10^3/uL (4.0-11.0) Red Blood Count 4.53 x10^6/uL (4.30-5.70) Hemoglobin 12.5 g/dL (13.0-17.5) Hematocrit 38.5 % (39.0-53.0) Mean Corpuscular Volume 85 fL (79-100) Mean Corpuscular Hemoglobin 28 pg (25-35) Mean Corpuscular Hemoglobin Concent 32 g/dL (31-37) Red Cell Distribution Width 13.9 % (11.5-14.5) Platelet Count 269 x10^3/uL (140-400) Neutrophils (%) (Auto) 76 % (31-73) Lymphocytes (%) (Auto) 12 % (24-48) Monocytes (%) (Auto) 9 % (0-9) Eosinophils (%) (Auto) 1 % (0-3) Basophils (%) (Auto) 1 % (0-3) Neutrophils # (Auto) 9.4 x10^3uL (1.8-7.7) Lymphocytes # (Auto) 1.5 x10^3/uL (1.0-4.8) Monocytes # (Auto) 1.2 x10^3/uL (0.0-1.1) Eosinophils # (Auto) 0.2 x10^3/uL (0.0-0.7) Basophils # (Auto) 0.1 x10^3/uL (0.0-0.2) Sodium Level 134 mmol/L (136-145) Potassium Level 4.8 mmol/L (3.5-5.1) Chloride Level 97 mmol/L (98-107) Carbon Dioxide Level 21 mmol/L (21-32) Anion Gap 16 (6-14) Blood Urea Nitrogen 78 mg/dL (8-26) Creatinine 5.8 mg/dL (0.7-1.3) Estimated GFR (Cockcroft-Gault) 9.8 BUN/Creatinine Ratio 13 (6-20) Glucose Level 138 mg/dL (70-99) Lactic Acid Level 1.0 mmol/L (0.4-2.0) Calcium Level 8.9 mg/dL (8.5-10.1) Magnesium Level 2.5 mg/dL (1.8-2.4) Total Bilirubin 0.5 mg/dL (0.2-1.0) Aspartate Amino Transf (AST/SGOT) 35 U/L (15-37) Alanine Aminotransferase (ALT/SGPT) 41 U/L (16-63) Alkaline Phosphatase 94 U/L (46-116) Creatine Kinase 344 U/L (39-308) Creatine Kinase MB (Mass) 4.9 ng/mL (0.0-3.6) Creatine Kinase MB Relative Index 1.4 % (0-4) Troponin I Quantitative < 0.017 ng/mL (0.000-0.055) JN-Mwt-V-Type Natriuretic Peptide 478 pg/mL (0-124) Total Protein 7.2 g/dL (6.4-8.2) Albumin 4.2 g/dL (3.4-5.0) Albumin/Globulin Ratio 1.4 (1.0-1.7) Lipase 117 U/L (73-393) Thyroid Stimulating Hormone (TSH) 3.116 uIU/mL (0.358-3.74) Free Thyroxine 0.99 ng/dL (0.76-1.46) Acetone Level Neg (NEG) Test 11/09/17 21:45 11/10/17 03:00 11/10/17 07:02 Urine Collection Type Unknown Urine Color Dk yellow Urine Clarity Clear Urine pH 5.0 Urine Specific [place] 1.025 Urine Protein 30 mg/dL (NEG-TRACE) Urine Glucose (UA) Negative mg/dL (NEG) Urine Ketones (Stick) Trace mg/dL (NEG) Urine Blood Negative (NEG) Urine Nitrite Negative (NEG) Urine Bilirubin Moderate (NEG) Urine Urobilinogen Dipstick 0.2 mg/dL (0.2 mg/dL) Urine Leukocyte Esterase Negative (NEG) Urine RBC Rare /HPF (0-2) Urine WBC Rare /HPF (0-4) Urine Squamous Epithelial Cells None /LPF Urine Bacteria 0 /HPF (0-FEW) Urine Hyaline Casts Many /HPF Urine Mucus Marked /LPF Urine Opiates Screen Pos (NEG) Urine Methadone Screen Neg (NEG) Urine Barbiturates Neg (NEG) Urine Phencyclidine Screen Neg (NEG) Urine Amphetamine/Methamphetamine Neg (NEG) Urine Benzodiazepines Screen Neg (NEG) Urine Cocaine Screen Neg (NEG) Urine Cannabinoids Screen Neg (NEG) Urine Ethyl Alcohol Neg (NEG) White Blood Count 14.5 x10^3/uL (4.0-11.0) Red Blood Count 4.16 x10^6/uL (4.30-5.70) Hemoglobin 11.7 g/dL (13.0-17.5) Hematocrit 35.9 % (39.0-53.0) Mean Corpuscular Volume 86 fL (79-100) Mean Corpuscular Hemoglobin 28 pg (25-35) Mean Corpuscular Hemoglobin Concent 33 g/dL (31-37) Red Cell Distribution Width 14.2 % (11.5-14.5) Platelet Count 240 x10^3/uL (140-400) Neutrophils (%) (Auto) 77 % (31-73) Lymphocytes (%) (Auto) 13 % (24-48) Monocytes (%) (Auto) 9 % (0-9) Eosinophils (%) (Auto) 1 % (0-3) Basophils (%) (Auto) 0 % (0-3) Neutrophils # (Auto) 11.1 x10^3uL (1.8-7.7) Lymphocytes # (Auto) 1.8 x10^3/uL (1.0-4.8) Monocytes # (Auto) 1.3 x10^3/uL (0.0-1.1) Eosinophils # (Auto) 0.2 x10^3/uL (0.0-0.7) Basophils # (Auto) 0.0 x10^3/uL (0.0-0.2) Sodium Level 132 mmol/L (136-145) Potassium Level 4.7 mmol/L (3.5-5.1) Chloride Level 97 mmol/L (98-107) Carbon Dioxide Level 22 mmol/L (21-32) Anion Gap 13 (6-14) Blood Urea Nitrogen 84 mg/dL (8-26) Creatinine 5.6 mg/dL (0.7-1.3) Estimated GFR (Cockcroft-Gault) 10.2 BUN/Creatinine Ratio 15 (6-20) Glucose Level 106 mg/dL (70-99) Calcium Level 8.6 mg/dL (8.5-10.1) Total Bilirubin 0.4 mg/dL (0.2-1.0) Aspartate Amino Transf (AST/SGOT) 31 U/L (15-37) Alanine Aminotransferase (ALT/SGPT) 36 U/L (16-63) Alkaline Phosphatase 87 U/L (46-116) Total Protein 7.0 g/dL (6.4-8.2) Albumin 4.0 g/dL (3.4-5.0) Albumin/Globulin Ratio 1.3 (1.0-1.7) Glucose (Fingerstick) 122 mg/dL (70-99) Assessment and Plan Assessmemt and Plan Problems Medical Problems: (1) Acute renal failure Status: Acute Comment Review of Relevant I have reviewed the following items kelsie (where applicable) has been applied. Labs Laboratory Tests Test 11/09/17 15:21 11/09/17 15:23 11/09/17 15:55 11/09/17 20:27 Glucose (Fingerstick) 131 mg/dL (70-99) 137 mg/dL (70-99) O2 Saturation 94 % (92-99) Arterial Blood pH 7.27 (7.35-7.45) Arterial Blood pCO2 at Patient Temp 42 mmHg (35-46) Arterial Blood pO2 at Patient Temp 83 mmHg (65-108) Arterial Blood HCO3 19 mmol/L (21-28) Arterial Blood Base Excess -8 mmol/L (-3-3) Oxyhemoglobin 93.6 % Methemoglobin 0.2 % (0.0-1.9) Carbon Monoxide, Quantitative 0.6 % (0.0-1.9) FiO2 28.0 White Blood Count 12.4 x10^3/uL (4.0-11.0) Red Blood Count 4.53 x10^6/uL (4.30-5.70) Hemoglobin 12.5 g/dL (13.0-17.5) Hematocrit 38.5 % (39.0-53.0) Mean Corpuscular Volume 85 fL (79-100) Mean Corpuscular Hemoglobin 28 pg (25-35) Mean Corpuscular Hemoglobin Concent 32 g/dL (31-37) Red Cell Distribution Width 13.9 % (11.5-14.5) Platelet Count 269 x10^3/uL (140-400) Neutrophils (%) (Auto) 76 % (31-73) Lymphocytes (%) (Auto) 12 % (24-48) Monocytes (%) (Auto) 9 % (0-9) Eosinophils (%) (Auto) 1 % (0-3) Basophils (%) (Auto) 1 % (0-3) Neutrophils # (Auto) 9.4 x10^3uL (1.8-7.7) Lymphocytes # (Auto) 1.5 x10^3/uL (1.0-4.8) Monocytes # (Auto) 1.2 x10^3/uL (0.0-1.1) Eosinophils # (Auto) 0.2 x10^3/uL (0.0-0.7) Basophils # (Auto) 0.1 x10^3/uL (0.0-0.2) Sodium Level 134 mmol/L (136-145) Potassium Level 4.8 mmol/L (3.5-5.1) Chloride Level 97 mmol/L (98-107) Carbon Dioxide Level 21 mmol/L (21-32) Anion Gap 16 (6-14) Blood Urea Nitrogen 78 mg/dL (8-26) Creatinine 5.8 mg/dL (0.7-1.3) Estimated GFR (Cockcroft-Gault) 9.8 BUN/Creatinine Ratio 13 (6-20) Glucose Level 138 mg/dL (70-99) Lactic Acid Level 1.0 mmol/L (0.4-2.0) Calcium Level 8.9 mg/dL (8.5-10.1) Magnesium Level 2.5 mg/dL (1.8-2.4) Total Bilirubin 0.5 mg/dL (0.2-1.0) Aspartate Amino Transf (AST/SGOT) 35 U/L (15-37) Alanine Aminotransferase (ALT/SGPT) 41 U/L (16-63) Alkaline Phosphatase 94 U/L (46-116) Creatine Kinase 344 U/L (39-308) Creatine Kinase MB (Mass) 4.9 ng/mL (0.0-3.6) Creatine Kinase MB Relative Index 1.4 % (0-4) Troponin I Quantitative < 0.017 ng/mL (0.000-0.055) XN-Bgu-D-Type Natriuretic Peptide 478 pg/mL (0-124) Total Protein 7.2 g/dL (6.4-8.2) Albumin 4.2 g/dL (3.4-5.0) Albumin/Globulin Ratio 1.4 (1.0-1.7) Lipase 117 U/L (73-393) Thyroid Stimulating Hormone (TSH) 3.116 uIU/mL (0.358-3.74) Free Thyroxine 0.99 ng/dL (0.76-1.46) Acetone Level Neg (NEG) Test 11/09/17 21:45 11/10/17 03:00 11/10/17 07:02 Urine Collection Type Unknown Urine Color Dk yellow Urine Clarity Clear Urine pH 5.0 Urine Specific [place] 1.025 Urine Protein 30 mg/dL (NEG-TRACE) Urine Glucose (UA) Negative mg/dL (NEG) Urine Ketones (Stick) Trace mg/dL (NEG) Urine Blood Negative (NEG) Urine Nitrite Negative (NEG) Urine Bilirubin Moderate (NEG) Urine Urobilinogen Dipstick 0.2 mg/dL (0.2 mg/dL) Urine Leukocyte Esterase Negative (NEG) Urine RBC Rare /HPF (0-2) Urine WBC Rare /HPF (0-4) Urine Squamous Epithelial Cells None /LPF Urine Bacteria 0 /HPF (0-FEW) Urine Hyaline Casts Many /HPF Urine Mucus Marked /LPF Urine Opiates Screen Pos (NEG) Urine Methadone Screen Neg (NEG) Urine Barbiturates Neg (NEG) Urine Phencyclidine Screen Neg (NEG) Urine Amphetamine/Methamphetamine Neg (NEG) Urine Benzodiazepines Screen Neg (NEG) Urine Cocaine Screen Neg (NEG) Urine Cannabinoids Screen Neg (NEG) Urine Ethyl Alcohol Neg (NEG) White Blood Count 14.5 x10^3/uL (4.0-11.0) Red Blood Count 4.16 x10^6/uL (4.30-5.70) Hemoglobin 11.7 g/dL (13.0-17.5) Hematocrit 35.9 % (39.0-53.0) Mean Corpuscular Volume 86 fL (79-100) Mean Corpuscular Hemoglobin 28 pg (25-35) Mean Corpuscular Hemoglobin Concent 33 g/dL (31-37) Red Cell Distribution Width 14.2 % (11.5-14.5) Platelet Count 240 x10^3/uL (140-400) Neutrophils (%) (Auto) 77 % (31-73) Lymphocytes (%) (Auto) 13 % (24-48) Monocytes (%) (Auto) 9 % (0-9) Eosinophils (%) (Auto) 1 % (0-3) Basophils (%) (Auto) 0 % (0-3) Neutrophils # (Auto) 11.1 x10^3uL (1.8-7.7) Lymphocytes # (Auto) 1.8 x10^3/uL (1.0-4.8) Monocytes # (Auto) 1.3 x10^3/uL (0.0-1.1) Eosinophils # (Auto) 0.2 x10^3/uL (0.0-0.7) Basophils # (Auto) 0.0 x10^3/uL (0.0-0.2) Sodium Level 132 mmol/L (136-145) Potassium Level 4.7 mmol/L (3.5-5.1) Chloride Level 97 mmol/L (98-107) Carbon Dioxide Level 22 mmol/L (21-32) Anion Gap 13 (6-14) Blood Urea Nitrogen 84 mg/dL (8-26) Creatinine 5.6 mg/dL (0.7-1.3) Estimated GFR (Cockcroft-Gault) 10.2 BUN/Creatinine Ratio 15 (6-20) Glucose Level 106 mg/dL (70-99) Calcium Level 8.6 mg/dL (8.5-10.1) Total Bilirubin 0.4 mg/dL (0.2-1.0) Aspartate Amino Transf (AST/SGOT) 31 U/L (15-37) Alanine Aminotransferase (ALT/SGPT) 36 U/L (16-63) Alkaline Phosphatase 87 U/L (46-116) Total Protein 7.0 g/dL (6.4-8.2) Albumin 4.0 g/dL (3.4-5.0) Albumin/Globulin Ratio 1.3 (1.0-1.7) Glucose (Fingerstick) 122 mg/dL (70-99) Laboratory Tests Test 11/09/17 15:21 11/09/17 15:23 11/09/17 15:55 11/09/17 20:27 Glucose (Fingerstick) 131 mg/dL (70-99) 137 mg/dL (70-99) O2 Saturation 94 % (92-99) Arterial Blood pH 7.27 (7.35-7.45) Arterial Blood pCO2 at Patient Temp 42 mmHg (35-46) Arterial Blood pO2 at Patient Temp 83 mmHg (65-108) Arterial Blood HCO3 19 mmol/L (21-28) Arterial Blood Base Excess -8 mmol/L (-3-3) Oxyhemoglobin 93.6 % Methemoglobin 0.2 % (0.0-1.9) Carbon Monoxide, Quantitative 0.6 % (0.0-1.9) FiO2 28.0 White Blood Count 12.4 x10^3/uL (4.0-11.0) Red Blood Count 4.53 x10^6/uL (4.30-5.70) Hemoglobin 12.5 g/dL (13.0-17.5) Hematocrit 38.5 % (39.0-53.0) Mean Corpuscular Volume 85 fL (79-100) Mean Corpuscular Hemoglobin 28 pg (25-35) Mean Corpuscular Hemoglobin Concent 32 g/dL (31-37) Red Cell Distribution Width 13.9 % (11.5-14.5) Platelet Count 269 x10^3/uL (140-400) Neutrophils (%) (Auto) 76 % (31-73) Lymphocytes (%) (Auto) 12 % (24-48) Monocytes (%) (Auto) 9 % (0-9) Eosinophils (%) (Auto) 1 % (0-3) Basophils (%) (Auto) 1 % (0-3) Neutrophils # (Auto) 9.4 x10^3uL (1.8-7.7) Lymphocytes # (Auto) 1.5 x10^3/uL (1.0-4.8) Monocytes # (Auto) 1.2 x10^3/uL (0.0-1.1) Eosinophils # (Auto) 0.2 x10^3/uL (0.0-0.7) Basophils # (Auto) 0.1 x10^3/uL (0.0-0.2) Sodium Level 134 mmol/L (136-145) Potassium Level 4.8 mmol/L (3.5-5.1) Chloride Level 97 mmol/L (98-107) Carbon Dioxide Level 21 mmol/L (21-32) Anion Gap 16 (6-14) Blood Urea Nitrogen 78 mg/dL (8-26) Creatinine 5.8 mg/dL (0.7-1.3) Estimated GFR (Cockcroft-Gault) 9.8 BUN/Creatinine Ratio 13 (6-20) Glucose Level 138 mg/dL (70-99) Lactic Acid Level 1.0 mmol/L (0.4-2.0) Calcium Level 8.9 mg/dL (8.5-10.1) Magnesium Level 2.5 mg/dL (1.8-2.4) Total Bilirubin 0.5 mg/dL (0.2-1.0) Aspartate Amino Transf (AST/SGOT) 35 U/L (15-37) Alanine Aminotransferase (ALT/SGPT) 41 U/L (16-63) Alkaline Phosphatase 94 U/L (46-116) Creatine Kinase 344 U/L (39-308) Creatine Kinase MB (Mass) 4.9 ng/mL (0.0-3.6) Creatine Kinase MB Relative Index 1.4 % (0-4) Troponin I Quantitative < 0.017 ng/mL (0.000-0.055) SE-Olb-F-Type Natriuretic Peptide 478 pg/mL (0-124) Total Protein 7.2 g/dL (6.4-8.2) Albumin 4.2 g/dL (3.4-5.0) Albumin/Globulin Ratio 1.4 (1.0-1.7) Lipase 117 U/L (73-393) Thyroid Stimulating Hormone (TSH) 3.116 uIU/mL (0.358-3.74) Free Thyroxine 0.99 ng/dL (0.76-1.46) Acetone Level Neg (NEG) Test 11/09/17 21:45 11/10/17 03:00 11/10/17 07:02 Urine Collection Type Unknown Urine Color Dk yellow Urine Clarity Clear Urine pH 5.0 Urine Specific [place] 1.025 Urine Protein 30 mg/dL (NEG-TRACE) Urine Glucose (UA) Negative mg/dL (NEG) Urine Ketones (Stick) Trace mg/dL (NEG) Urine Blood Negative (NEG) Urine Nitrite Negative (NEG) Urine Bilirubin Moderate (NEG) Urine Urobilinogen Dipstick 0.2 mg/dL (0.2 mg/dL) Urine Leukocyte Esterase Negative (NEG) Urine RBC Rare /HPF (0-2) Urine WBC Rare /HPF (0-4) Urine Squamous Epithelial Cells None /LPF Urine Bacteria 0 /HPF (0-FEW) Urine Hyaline Casts Many /HPF Urine Mucus Marked /LPF Urine Opiates Screen Pos (NEG) Urine Methadone Screen Neg (NEG) Urine Barbiturates Neg (NEG) Urine Phencyclidine Screen Neg (NEG) Urine Amphetamine/Methamphetamine Neg (NEG) Urine Benzodiazepines Screen Neg (NEG) Urine Cocaine Screen Neg (NEG) Urine Cannabinoids Screen Neg (NEG) Urine Ethyl Alcohol Neg (NEG) White Blood Count 14.5 x10^3/uL (4.0-11.0) Red Blood Count 4.16 x10^6/uL (4.30-5.70) Hemoglobin 11.7 g/dL (13.0-17.5) Hematocrit 35.9 % (39.0-53.0) Mean Corpuscular Volume 86 fL (79-100) Mean Corpuscular Hemoglobin 28 pg (25-35) Mean Corpuscular Hemoglobin Concent 33 g/dL (31-37) Red Cell Distribution Width 14.2 % (11.5-14.5) Platelet Count 240 x10^3/uL (140-400) Neutrophils (%) (Auto) 77 % (31-73) Lymphocytes (%) (Auto) 13 % (24-48) Monocytes (%) (Auto) 9 % (0-9) Eosinophils (%) (Auto) 1 % (0-3) Basophils (%) (Auto) 0 % (0-3) Neutrophils # (Auto) 11.1 x10^3uL (1.8-7.7) Lymphocytes # (Auto) 1.8 x10^3/uL (1.0-4.8) Monocytes # (Auto) 1.3 x10^3/uL (0.0-1.1) Eosinophils # (Auto) 0.2 x10^3/uL (0.0-0.7) Basophils # (Auto) 0.0 x10^3/uL (0.0-0.2) Sodium Level 132 mmol/L (136-145) Potassium Level 4.7 mmol/L (3.5-5.1) Chloride Level 97 mmol/L (98-107) Carbon Dioxide Level 22 mmol/L (21-32) Anion Gap 13 (6-14) Blood Urea Nitrogen 84 mg/dL (8-26) Creatinine 5.6 mg/dL (0.7-1.3) Estimated GFR (Cockcroft-Gault) 10.2 BUN/Creatinine Ratio 15 (6-20) Glucose Level 106 mg/dL (70-99) Calcium Level 8.6 mg/dL (8.5-10.1) Total Bilirubin 0.4 mg/dL (0.2-1.0) Aspartate Amino Transf (AST/SGOT) 31 U/L (15-37) Alanine Aminotransferase (ALT/SGPT) 36 U/L (16-63) Alkaline Phosphatase 87 U/L (46-116) Total Protein 7.0 g/dL (6.4-8.2) Albumin 4.0 g/dL (3.4-5.0) Albumin/Globulin Ratio 1.3 (1.0-1.7) Glucose (Fingerstick) 122 mg/dL (70-99) Medications Current Medications Sodium Chloride 1,000 ml @ 1,000 mls/hr Q1H IV Last administered on 11/09/17at 16:20; Start 11/09/17 at 15:23; Stop 11/09/17 at 16:22; Status DC Sodium Chloride 1,000 ml @ 1,000 mls/hr 1X ONCE IV Last administered on at 16:20; Start 11/09/17 at 16:30; Stop 11/09/17 at 17:29; Status DC Sodium Chloride 1,000 ml @ 100 mls/hr 1X ONCE IV Last administered on at 19:50; Start 11/09/17 at 16:45; Stop 11/10/17 at 02:44; Status DC Acetaminophen (Tylenol) 650 mg PRN Q6HRS PRN PO FEVER; Start 11/09/17 at 18:15 Ondansetron HCl (Zofran) 4 mg PRN Q6HRS PRN IV NAUSEA/VOMITING; Start 11/09/17 at 18:15 Morphine Sulfate (Morphine Sulfate) 2 mg PRN Q2HR PRN IV MODERATE TO SEVERE PAIN; Start 11/09/17 at 18:15 Tramadol HCl (Ultram) 50 mg PRN Q6HRS PRN PO MILD TO MODERATE PAIN; Start 11/09 at 18:15 Hydralazine HCl (Apresoline Inj) 10 mg PRN Q4HRS PRN IVP ELEVATED BP, SEE COMMENTS; Start 11/09/17 at 18:15 Docusate Sodium (Colace) 100 mg PRN DAILY PRN PO CONSTIPATION; Start 11/09/17 at 18:15 Sodium Chloride 1,000 ml @ 100 mls/hr Q10H IV Last administered on 11/10/17at 06:07; Start 11/09/17 at 18:15 Insulin Human Lispro (HumaLOG) 0-9 UNITS TIDWMEALS SQ ; Start 11/10/17 at 08:00 Dextrose (Dextrose 50%-Water Syringe) 12.5 gm PRN Q15MIN PRN IV SEE COMMENTS; Start 11/09/17 at 18:15 Heparin Sodium (Porcine) (Heparin Sq) 5,000 unit Q8HRS SQ Last administered on 11/10/17at 06:10; Start 11/09/17 at 19:00 Trazodone HCl (Desyrel) 50 mg QHS PO Last administered on 11/09/17at 21:47; Start 11/09/17 at 21:15 Morphine Sulfate (Ms Contin) 15 mg BID PO Last administered on 11/10/17at 08:06 ; Start 11/09/17 at 21:15 Active Scripts Active Reported Gralise (Gabapentin) 600 Mg Tab.er.24h 1,500 Mg PO DAILY Trazodone Hcl 50 Mg Tablet 50 Mg PO HS Hydrocodone-Apap 5-325 (Hydrocodone Bit/Acetaminophen) 1 Each Tablet 1 Tab PO PRN Q6HRS PRN Morphine Sulfate Er (Morphine Sulfate) 15 Mg Tablet.er 15 Mg PO BID Meloxicam 15 Mg Tablet 15 Mg PO DAILY Colace (Docusate Sodium) 100 Mg Capsule 100 Mg PO DAILY Labetalol Hcl 200 Mg Tablet 200 Mg PO BID Atorvastatin Calcium 80 Mg Tablet 40 Mg PO DAILY Flax Seed Oil 1,300 Mg Softgel (Flaxseed/Omega3,6,9/Fatty Acid) 1 Each Capsule 1 Each PO DAILY Coenzyme Q10 (Ubidecarenone) 100 Mg Tablet 100 Mg PO BID Vitamin D3 (Cholecalciferol (Vitamin D3)) 1,000 Unit Tablet 2 Tab AD DAILY Vitamin B12 (Cyanocobalamin (Vitamin B-12)) 2,500 Mcg Tablet 2,500 Mcg PO DAILY Nitrostat (Nitroglycerin) 0.4 Mg Tab.subl 1 Tab SL UD Pantoprazole Sodium 40 Mg Tablet.dr 1 Tab PO HS Metoprolol Tartrate 50 Mg Tablet 1,000 Mg PO BID Novolin 70-30 100 Unit/Ml Vial (Hum Insulin Nph/Reg Insulin Hm) 100 Unit/1 Ml Vial 30 Unit SQ DAILYWSUP Novolin 70-30 100 Unit/Ml Vial (Hum Insulin Nph/Reg Insulin Hm) 100 Unit/1 Ml Vial 40 Unit SQ DAILY Humalog (Insulin Lispro) 100 Unit/1 Ml Cartridge 1 Unit SQ Metformin Hcl 1,000 Mg Tablet 1 Tab PO BID Lisinopril 40 Mg Tablet 1 Tab PO DAILY Clopidogrel (Clopidogrel Bisulfate) 75 Mg Tablet 1 Tab PO DAILY Aspirin 325 Mg Tablet 325 Mg PO BID Vitals/I & O Vital Sign - Last 24 Hours 11/09/17 11/09/17 11/09/17 11/09/17 15:01 15:10 16:10 17:10 Temp 98.1 98.1 Pulse 70 67 66 58 Resp 29 20 20 20 B/P (MAP) 110/58 (75) Pulse Ox 87 94 94 97 O2 Delivery Room Air O2 Flow Rate 2.0 11/09/17 11/09/17 11/09/17 11/10/17 18:30 20:10 23:41 03:26 Temp 98.1 98.3 97.9 98.1 98.3 97.9 Pulse 68 70 72 Resp 16 16 16 B/P (MAP) 117/61 (79) 116/56 (76) 142/67 (92) Pulse Ox 91 94 97 O2 Delivery Room Air Room Air Room Air Room Air 11/10/17 11/10/17 11/10/17 06:45 07:40 08:06 Temp 98.0 98.0 Pulse 80 Resp 17 B/P (MAP) 148/76 (100) Pulse Ox 95 O2 Delivery Room Air Room Air Room Air Intake and Output 11/09/17 11/09/17 11/10/17 15:00 23:00 07:00 Intake Total 2000 ml 400 ml Output Total 650 ml Balance 2000 ml -250 ml EMIGDIO HUNTER MD Nov 10, 2017 09:17
--- NOTE | 2017-11-10 10:32 | PDOC2 ---
ROMMEL SIDHU WOOD FLOORING SPECIALIST 11/10/17 1032: CARDIAC CONSULT DATE OF CONSULT Date of Consult DATE: 11/10/17 TIME: 10:28 REASON FOR CONSULT Reason for Consult: CAD REFERRING PHYSICIAN Referring Physician: Rashaun SOURCE Source: Chart review, Patient HISTORY OF PRESENT ILLNESS HISTORY OF PRESENT ILLNESS 67 year old male admitted through ER with a one week history of fatigue, weakness, shaking, confusion and ? dyspnea. Works in the heat and humidity. Unclear how long he has been treated with NSAIDs and ACEI. BUN 78 and Cr 5.8 in the ER; 84 and 5.6 respectively today. Treated with IV fluids. Known history of CAD and has requested patient have angiography to "check his heart." Denies CP, palpitations, dyspnea, PND, orthopnea, LE edema. EKG without acute changes. Troponin level not consistent with AMI. Reason for Visit: h/o CAD PAST MEDICAL HISTORY Cardiovascular: CAD (with stent to RCA (left to right collaterals & OM - 2016) , HTN, LA, Hyperlipidemia GI: Constipation, GERD Musculoskeletal: Osteoarthritis Endocrine: Diabetes PAST SURGICAL HISTORY Past Surgical History: No pertinent history FAMILY HISTORY Family History: Diabetes, Heart Disease, Hypertension SOCIAL HISTORY Smoke: No ALCOHOL: none Drugs: None Lives: with Family CURRENT MEDICATIONS CURRENT MEDICATIONS Current Medications Medications (Trade) Dose Ordered Sig/Karly Route PRN Reason Start Time Stop Time Status Last Admin Dose Admin Sodium Chloride 1,000 ml @ 1,000 mls/hr Q1H IV 11/09/17 15:23 11/09/17 16:22 DC 11/09/17 16:20 Sodium Chloride 1,000 ml @ 1,000 mls/hr 1X ONCE IV 11/09/17 16:30 11/09/17 17:29 DC 11/09/17 16:20 Sodium Chloride 1,000 ml @ 100 mls/hr 1X ONCE IV 11/09/17 16:45 11/10/17 02:44 DC 11/09/17 19:50 Sodium Chloride 1,000 ml @ 100 mls/hr Q10H IV 11/09/17 18:15 11/10/17 06:07 Heparin Sodium (Porcine) (Heparin Sq) 5,000 unit Q8HRS SQ 11/09/17 19:00 11/10/17 06:10 Trazodone HCl (Desyrel) 50 mg QHS PO 11/09/17 21:15 11/09/17 21:47 Morphine Sulfate (Ms Contin) 15 mg BID PO 11/09/17 21:15 11/10/17 08:06 ALLERGIES ALLERGIES: Coded Allergies: [id number] Reductase Inhibitor (Verified Allergy, Intermediate, ) Worsens myalgia ROS Review of System 14 point review with pertinent positives in HPI PHYSICAL EXAM General: Alert, Oriented X3, Cooperative, No acute distress HEENT: Atraumatic, PERRLA Lungs: Clear to auscultation Heart: Normal S1, Normal S2, No murmurs, Other (no carotid bruits) Abdomen: Soft Extremities: No edema, Normal pulses Skin: No rashes Neuro: Normal speech Psych/Mental Status: Mood NL, Other (word finding difficulty) MUSCULOSKELETAL: No deformity VITALS VITALS Vital Signs Date Time Temp Pulse Resp B/P (MAP) Pulse Ox O2 Delivery O2 Flow Rate FiO2 11/10/17 08:06 Room Air 11/10/17 06:45 98.0 80 17 148/76 (100) 95 98.0 11/09/17 15:01 2.0 LABS Lab: Laboratory Tests Test 11/09/17 15:21 11/09/17 15:23 11/09/17 15:55 11/09/17 20:27 Glucose (Fingerstick) 131 mg/dL (70-99) 137 mg/dL (70-99) O2 Saturation 94 % (92-99) Arterial Blood pH 7.27 (7.35-7.45) Arterial Blood pCO2 at Patient Temp 42 mmHg (35-46) Arterial Blood pO2 at Patient Temp 83 mmHg (65-108) Arterial Blood HCO3 19 mmol/L (21-28) Arterial Blood Base Excess -8 mmol/L (-3-3) Oxyhemoglobin 93.6 % Methemoglobin 0.2 % (0.0-1.9) Carbon Monoxide, Quantitative 0.6 % (0.0-1.9) FiO2 28.0 White Blood Count 12.4 x10^3/uL (4.0-11.0) Red Blood Count 4.53 x10^6/uL (4.30-5.70) Hemoglobin 12.5 g/dL (13.0-17.5) Hematocrit 38.5 % (39.0-53.0) Mean Corpuscular Volume 85 fL (79-100) Mean Corpuscular Hemoglobin 28 pg (25-35) Mean Corpuscular Hemoglobin Concent 32 g/dL (31-37) Red Cell Distribution Width 13.9 % (11.5-14.5) Platelet Count 269 x10^3/uL (140-400) Neutrophils (%) (Auto) 76 % (31-73) Lymphocytes (%) (Auto) 12 % (24-48) Monocytes (%) (Auto) 9 % (0-9) Eosinophils (%) (Auto) 1 % (0-3) Basophils (%) (Auto) 1 % (0-3) Neutrophils # (Auto) 9.4 x10^3uL (1.8-7.7) Lymphocytes # (Auto) 1.5 x10^3/uL (1.0-4.8) Monocytes # (Auto) 1.2 x10^3/uL (0.0-1.1) Eosinophils # (Auto) 0.2 x10^3/uL (0.0-0.7) Basophils # (Auto) 0.1 x10^3/uL (0.0-0.2) Sodium Level 134 mmol/L (136-145) Potassium Level 4.8 mmol/L (3.5-5.1) Chloride Level 97 mmol/L (98-107) Carbon Dioxide Level 21 mmol/L (21-32) Anion Gap 16 (6-14) Blood Urea Nitrogen 78 mg/dL (8-26) Creatinine 5.8 mg/dL (0.7-1.3) Estimated GFR (Cockcroft-Gault) 9.8 BUN/Creatinine Ratio 13 (6-20) Glucose Level 138 mg/dL (70-99) Lactic Acid Level 1.0 mmol/L (0.4-2.0) Calcium Level 8.9 mg/dL (8.5-10.1) Magnesium Level 2.5 mg/dL (1.8-2.4) Total Bilirubin 0.5 mg/dL (0.2-1.0) Aspartate Amino Transf (AST/SGOT) 35 U/L (15-37) Alanine Aminotransferase (ALT/SGPT) 41 U/L (16-63) Alkaline Phosphatase 94 U/L (46-116) Creatine Kinase 344 U/L (39-308) Creatine Kinase MB (Mass) 4.9 ng/mL (0.0-3.6) Creatine Kinase MB Relative Index 1.4 % (0-4) Troponin I Quantitative < 0.017 ng/mL (0.000-0.055) FO-Uke-W-Type Natriuretic Peptide 478 pg/mL (0-124) Total Protein 7.2 g/dL (6.4-8.2) Albumin 4.2 g/dL (3.4-5.0) Albumin/Globulin Ratio 1.4 (1.0-1.7) Lipase 117 U/L (73-393) Thyroid Stimulating Hormone (TSH) 3.116 uIU/mL (0.358-3.74) Free Thyroxine 0.99 ng/dL (0.76-1.46) Acetone Level Neg (NEG) Test 11/09/17 21:45 11/10/17 03:00 11/10/17 07:02 Urine Collection Type Unknown Urine Color Dk yellow Urine Clarity Clear Urine pH 5.0 Urine Specific [place] 1.025 Urine Protein 30 mg/dL (NEG-TRACE) Urine Glucose (UA) Negative mg/dL (NEG) Urine Ketones (Stick) Trace mg/dL (NEG) Urine Blood Negative (NEG) Urine Nitrite Negative (NEG) Urine Bilirubin Moderate (NEG) Urine Urobilinogen Dipstick 0.2 mg/dL (0.2 mg/dL) Urine Leukocyte Esterase Negative (NEG) Urine RBC Rare /HPF (0-2) Urine WBC Rare /HPF (0-4) Urine Squamous Epithelial Cells None /LPF Urine Bacteria 0 /HPF (0-FEW) Urine Hyaline Casts Many /HPF Urine Mucus Marked /LPF Urine Opiates Screen Pos (NEG) Urine Methadone Screen Neg (NEG) Urine Barbiturates Neg (NEG) Urine Phencyclidine Screen Neg (NEG) Urine Amphetamine/Methamphetamine Neg (NEG) Urine Benzodiazepines Screen Neg (NEG) Urine Cocaine Screen Neg (NEG) Urine Cannabinoids Screen Neg (NEG) Urine Ethyl Alcohol Neg (NEG) White Blood Count 14.5 x10^3/uL (4.0-11.0) Red Blood Count 4.16 x10^6/uL (4.30-5.70) Hemoglobin 11.7 g/dL (13.0-17.5) Hematocrit 35.9 % (39.0-53.0) Mean Corpuscular Volume 86 fL (79-100) Mean Corpuscular Hemoglobin 28 pg (25-35) Mean Corpuscular Hemoglobin Concent 33 g/dL (31-37) Red Cell Distribution Width 14.2 % (11.5-14.5) Platelet Count 240 x10^3/uL (140-400) Neutrophils (%) (Auto) 77 % (31-73) Lymphocytes (%) (Auto) 13 % (24-48) Monocytes (%) (Auto) 9 % (0-9) Eosinophils (%) (Auto) 1 % (0-3) Basophils (%) (Auto) 0 % (0-3) Neutrophils # (Auto) 11.1 x10^3uL (1.8-7.7) Lymphocytes # (Auto) 1.8 x10^3/uL (1.0-4.8) Monocytes # (Auto) 1.3 x10^3/uL (0.0-1.1) Eosinophils # (Auto) 0.2 x10^3/uL (0.0-0.7) Basophils # (Auto) 0.0 x10^3/uL (0.0-0.2) Sodium Level 132 mmol/L (136-145) Potassium Level 4.7 mmol/L (3.5-5.1) Chloride Level 97 mmol/L (98-107) Carbon Dioxide Level 22 mmol/L (21-32) Anion Gap 13 (6-14) Blood Urea Nitrogen 84 mg/dL (8-26) Creatinine 5.6 mg/dL (0.7-1.3) Estimated GFR (Cockcroft-Gault) 10.2 BUN/Creatinine Ratio 15 (6-20) Glucose Level 106 mg/dL (70-99) Calcium Level 8.6 mg/dL (8.5-10.1) Total Bilirubin 0.4 mg/dL (0.2-1.0) Aspartate Amino Transf (AST/SGOT) 31 U/L (15-37) Alanine Aminotransferase (ALT/SGPT) 36 U/L (16-63) Alkaline Phosphatase 87 U/L (46-116) Total Protein 7.0 g/dL (6.4-8.2) Albumin 4.0 g/dL (3.4-5.0) Albumin/Globulin Ratio 1.3 (1.0-1.7) Glucose (Fingerstick) 122 mg/dL (70-99) IMAGES IMAGES CXR - no active disease EKG EKG no acute changes ECHOCARDIOGRAM ECHOCARDIOGRAM 03/25/2016: TTE: Left ventricle systolic function is normal. The Ejection Fraction is 55%. There is normal LV segmental wall motion. STRESS TEST STRESS TEST 02/2016: MPI: 1. No evidence of stress induced EKG changes, Frequent PVC's noted. 2. Fixed inferior defect with viability. 3. Moderate LV dysfunction. EF 40% 4. Moderate risk study. HEART CATH HEART CATH 05/2015: FINDINGS 1. Hemodynamics: Left ventricular end-diastolic pressure 17 mmHg. No pullback gradient across the aortic valve. 2. Left ventriculography: Diaphragmatic wall hypokinesis with ejection fraction estimated at 55%. No significant mitral regurgitation seen. 3. Coronary angiography: a. The left main coronary artery arose from the left sinus of Valsalva, gave rise to the left anterior descending and left circumflex arteries and did not show any significant stenosis. b. The left anterior descending artery showed a widely patent stent in the midsegment. No significant stenosis was seen. c. The left circumflex artery showed 80-90% stenosis in the proximal segment of the large obtuse marginal branch. d. The right coronary artery was a dominant vessel arising from the right sinus of Valsalva that showed 90% stenosis in the proximal segment and 100% chronic and in-stent occlusion in the mid to distal segment. There are good [id number] collaterals reconstituting posterior descending and posterolateral branches. Conclusion 1. 100% chronic in-stent occlusion of the right coronary artery with distal reconstitution from [id number] collaterals. 80-90% stenosis involving a large obtuse marginal branch of left circumflex artery. The previously placed stent in the left anterior descending artery is widely patent. 2. Successful PCI/drug eluting stent placement to the obtuse marginal branch of left circumflex artery. 3. Diaphragmatic wall hypokinesis with ejection fraction estimated at 55%. 4. No significant mitral regurgitation or aortic stenosis. ASSESSMENT/PLAN ASSESSMENT/PLAN 1. CAD by history --troponin and EKG not consistent with AMI --denies CP, pressure, palps, dypsnea, PND, orthopnea and edema --no symptoms indicating a need for cardiac cath and in the setting of JUSTICE would not recommend cardiac cath unless emergency or patient agreeable with hemodialysis ---- not present; discussed with daughter 2. JUSTICE --has been treated with NSAIDs, ACEI and metformin --IV fluids infusing --per nephrology 3. HTN --control with oral meds 4. HLD --continue therapy --statin intolerance 5. DM, II --per primary service DEMARIO PHOENIX MD 11/10/17 3838: CARDIAC CONSULT ASSESSMENT/PLAN ASSESSMENT/PLAN Patient seen and examined. Agree with ROTARY FURNACE OPERATOR's assessment and plan. Continue management of acute renal insufficiency per nephrology team CAD status clinically stable. 2-D echo showed normal LV systolic function. No further cardiac workup is indicated at this time. Thank you for your consultation. ROMMEL SIDHU APRN Nov 10, 2017 10:32 DEMARIO PHOENIX MD Nov 10, 2017 17:38
[2017-11-10 11:11] VITALS: BP 149/71
--- NOTE | 2017-11-10 13:37 | PDOC2 ---
CONSULT Date of Consult Date of Consult DATE: 11/10/17 TIME: 13:30 Reason for Consult Reason for Consult: NONE Referring Physician Referring Physician: MARGUERITE Identification/Chief Complaint Chief Complaint DIZZY Source Source: Chart review, Patient History of Present Illness Reason for Visit: THIS IS A 67 YR OLD WITH WEAKNESS AND DIZZINESS ON AND OF FOR ABOUT A WEEK. ALSO HAS HAD SOME NAUSEA. STATED THAT HE WORKS HIS SHED AND SWEATS MOST OF THE DAY. NOT REALLY HIS JOB BUT HAS BEEN WORKING ON [employer]. NO CKD NOTED. HX OF DM II AND HTN. CR WAS 5.8 ON ADMIT. K NL. MED INCLUDED METFORMIN, MOBIC AND AND MEKA-I. NO OTHER HX NOTED Past Medical History Cardiovascular: CAD, HTN, VT, Hyperlipidemia Pulmonary: No pertinent hx GI: Constipation, GERD Heme/Onc: No pertinent hx Hepatobiliary: No pertinent hx Psych: No pertinent hx Musculoskeletal: Osteoarthritis Rheumatologic: No pertinent hx Infectious disease: No pertinent hx Renal/: No pertinent hx Endocrine: Diabetes Past Surgical History Past Surgical History: Other Family History Family History: Diabetes, Heart Disease, Hypertension Social History No ALCOHOL: none Drugs: None Lives: with Family Current Problem List Problem List Problems Medical Problems: (1) Acute renal failure Status: Acute Current Medications Current Medications Current Medications Sodium Chloride 1,000 ml @ 1,000 mls/hr Q1H IV Last administered on 11/09/17at 16:20; Start 11/09/17 at 15:23; Stop 11/09/17 at 16:22; Status DC Sodium Chloride 1,000 ml @ 1,000 mls/hr 1X ONCE IV Last administered on at 16:20; Start 11/09/17 at 16:30; Stop 11/09/17 at 17:29; Status DC Sodium Chloride 1,000 ml @ 100 mls/hr 1X ONCE IV Last administered on at 19:50; Start 11/09/17 at 16:45; Stop 11/10/17 at 02:44; Status DC Acetaminophen (Tylenol) 650 mg PRN Q6HRS PRN PO FEVER; Start 11/09/17 at 18:15 Ondansetron HCl (Zofran) 4 mg PRN Q6HRS PRN IV NAUSEA/VOMITING; Start 11/09/17 at 18:15 Morphine Sulfate (Morphine Sulfate) 2 mg PRN Q2HR PRN IV MODERATE TO SEVERE PAIN; Start 11/09/17 at 18:15 Tramadol HCl (Ultram) 50 mg PRN Q6HRS PRN PO MILD TO MODERATE PAIN; Start 11/09 at 18:15 Hydralazine HCl (Apresoline Inj) 10 mg PRN Q4HRS PRN IVP ELEVATED BP, SEE COMMENTS; Start 11/09/17 at 18:15 Docusate Sodium (Colace) 100 mg PRN DAILY PRN PO CONSTIPATION; Start 11/09/17 at 18:15 Sodium Chloride 1,000 ml @ 100 mls/hr Q10H IV Last administered on 11/10/17at 06:07; Start 11/09/17 at 18:15 Insulin Human Lispro (HumaLOG) 0-9 UNITS TIDWMEALS SQ Last administered on 11/10at 11:52; Start 11/10/17 at 08:00 Dextrose (Dextrose 50%-Water Syringe) 12.5 gm PRN Q15MIN PRN IV SEE COMMENTS; Start 11/09/17 at 18:15 Heparin Sodium (Porcine) (Heparin Sq) 5,000 unit Q8HRS SQ Last administered on 11/10/17at 06:10; Start 11/09/17 at 19:00 Trazodone HCl (Desyrel) 50 mg QHS PO Last administered on 11/09/17at 21:47; Start 11/09/17 at 21:15 Morphine Sulfate (Ms Contin) 15 mg BID PO Last administered on 11/10/17at 08:06 ; Start 11/09/17 at 21:15 Active Scripts Active Reported Gralise (Gabapentin) 600 Mg Tab.er.24h 1,500 Mg PO DAILY Trazodone Hcl 50 Mg Tablet 50 Mg PO HS Hydrocodone-Apap 5-325 (Hydrocodone Bit/Acetaminophen) 1 Each Tablet 1 Tab PO PRN Q6HRS PRN Morphine Sulfate Er (Morphine Sulfate) 15 Mg Tablet.er 15 Mg PO BID Meloxicam 15 Mg Tablet 15 Mg PO DAILY Colace (Docusate Sodium) 100 Mg Capsule 100 Mg PO DAILY Labetalol Hcl 200 Mg Tablet 200 Mg PO BID Atorvastatin Calcium 80 Mg Tablet 40 Mg PO DAILY Flax Seed Oil 1,300 Mg Softgel (Flaxseed/Omega3,6,9/Fatty Acid) 1 Each Capsule 1 Each PO DAILY Coenzyme Q10 (Ubidecarenone) 100 Mg Tablet 100 Mg PO BID Vitamin D3 (Cholecalciferol (Vitamin D3)) 1,000 Unit Tablet 2 Tab AD DAILY Vitamin B12 (Cyanocobalamin (Vitamin B-12)) 2,500 Mcg Tablet 2,500 Mcg PO DAILY Nitrostat (Nitroglycerin) 0.4 Mg Tab.subl 1 Tab SL UD Pantoprazole Sodium 40 Mg Tablet.dr 1 Tab PO HS Metoprolol Tartrate 50 Mg Tablet 1,000 Mg PO BID Novolin 70-30 100 Unit/Ml Vial (Hum Insulin Nph/Reg Insulin Hm) 100 Unit/1 Ml Vial 30 Unit SQ DAILYWSUP Novolin 70-30 100 Unit/Ml Vial (Hum Insulin Nph/Reg Insulin Hm) 100 Unit/1 Ml Vial 40 Unit SQ DAILY Humalog (Insulin Lispro) 100 Unit/1 Ml Cartridge 1 Unit SQ Metformin Hcl 1,000 Mg Tablet 1 Tab PO BID Lisinopril 40 Mg Tablet 1 Tab PO DAILY Clopidogrel (Clopidogrel Bisulfate) 75 Mg Tablet 1 Tab PO DAILY Aspirin 325 Mg Tablet 325 Mg PO BID Allergies Allergies: Coded Allergies: Cnldchw-Uqw-Qpj Reductase Inhibitor (Verified Allergy, Intermediate, ) Worsens myalgia ROS General: YES: Fatigue, Malaise, Appetite PSYCHOLOGICAL ROS: YES: Anxiety Eyes: Yes Decreased vision HEENT: YES: Herve ALLERGY AND IMMUNOLOGY: YES: Seasonal Allergies Respiratory: YES: Cough Cardiovascular: yes Chest Pain Gastrointestinal: Yes Nausea, Yes Vomiting Genitourinary: YES Other (SOME DECREASE LAST COUPLE DAYS IN UO) Musculoskeletal: Yes Muscular Weakness Neurological: Yes Weakness Skin: Yes Dry Skin Physical Exam General: Alert, Oriented X3, Cooperative, No acute distress HEENT: Atraumatic, PERRLA Lungs: Clear to auscultation Heart: Regular rate Abdomen: Normal bowel sounds, Soft, No tenderness Extremities: No clubbing Neuro: Normal speech, Cranial nerves 3-12 NL Psych/Mental Status: Mental status NL, Mood NL MUSCULOSKELETAL: No joint tenderness, No deformity, No swelling Vitals VITALS Vital Signs Date Time Temp Pulse Resp B/P (MAP) Pulse Ox O2 Delivery O2 Flow Rate FiO2 11/10/17 11:49 Room Air 11/10/17 11:11 98.1 89 18 149/71 (97) 96 98.1 11/09/17 15:01 2.0 Labs Labs Laboratory Tests Test 11/09/17 15:21 11/09/17 15:23 11/09/17 15:55 11/09/17 20:27 Glucose (Fingerstick) 131 mg/dL (70-99) 137 mg/dL (70-99) O2 Saturation 94 % (92-99) Arterial Blood pH 7.27 (7.35-7.45) Arterial Blood pCO2 at Patient Temp 42 mmHg (35-46) Arterial Blood pO2 at Patient Temp 83 mmHg (65-108) Arterial Blood HCO3 19 mmol/L (21-28) Arterial Blood Base Excess -8 mmol/L (-3-3) Oxyhemoglobin 93.6 % Methemoglobin 0.2 % (0.0-1.9) Carbon Monoxide, Quantitative 0.6 % (0.0-1.9) FiO2 28.0 White Blood Count 12.4 x10^3/uL (4.0-11.0) Red Blood Count 4.53 x10^6/uL (4.30-5.70) Hemoglobin 12.5 g/dL (13.0-17.5) Hematocrit 38.5 % (39.0-53.0) Mean Corpuscular Volume 85 fL (79-100) Mean Corpuscular Hemoglobin 28 pg (25-35) Mean Corpuscular Hemoglobin Concent 32 g/dL (31-37) Red Cell Distribution Width 13.9 % (11.5-14.5) Platelet Count 269 x10^3/uL (140-400) Neutrophils (%) (Auto) 76 % (31-73) Lymphocytes (%) (Auto) 12 % (24-48) Monocytes (%) (Auto) 9 % (0-9) Eosinophils (%) (Auto) 1 % (0-3) Basophils (%) (Auto) 1 % (0-3) Neutrophils # (Auto) 9.4 x10^3uL (1.8-7.7) Lymphocytes # (Auto) 1.5 x10^3/uL (1.0-4.8) Monocytes # (Auto) 1.2 x10^3/uL (0.0-1.1) Eosinophils # (Auto) 0.2 x10^3/uL (0.0-0.7) Basophils # (Auto) 0.1 x10^3/uL (0.0-0.2) Sodium Level 134 mmol/L (136-145) Potassium Level 4.8 mmol/L (3.5-5.1) Chloride Level 97 mmol/L (98-107) Carbon Dioxide Level 21 mmol/L (21-32) Anion Gap 16 (6-14) Blood Urea Nitrogen 78 mg/dL (8-26) Creatinine 5.8 mg/dL (0.7-1.3) Estimated GFR (Cockcroft-Gault) 9.8 BUN/Creatinine Ratio 13 (6-20) Glucose Level 138 mg/dL (70-99) Lactic Acid Level 1.0 mmol/L (0.4-2.0) Calcium Level 8.9 mg/dL (8.5-10.1) Magnesium Level 2.5 mg/dL (1.8-2.4) Total Bilirubin 0.5 mg/dL (0.2-1.0) Aspartate Amino Transf (AST/SGOT) 35 U/L (15-37) Alanine Aminotransferase (ALT/SGPT) 41 U/L (16-63) Alkaline Phosphatase 94 U/L (46-116) Creatine Kinase 344 U/L (39-308) Creatine Kinase MB (Mass) 4.9 ng/mL (0.0-3.6) Creatine Kinase MB Relative Index 1.4 % (0-4) Troponin I Quantitative < 0.017 ng/mL (0.000-0.055) PJ-Yze-I-Type Natriuretic Peptide 478 pg/mL (0-124) Total Protein 7.2 g/dL (6.4-8.2) Albumin 4.2 g/dL (3.4-5.0) Albumin/Globulin Ratio 1.4 (1.0-1.7) Lipase 117 U/L (73-393) Thyroid Stimulating Hormone (TSH) 3.116 uIU/mL (0.358-3.74) Free Thyroxine 0.99 ng/dL (0.76-1.46) Acetone Level Neg (NEG) Test 11/09/17 21:45 11/10/17 03:00 11/10/17 07:02 11/10/17 10:52 Urine Collection Type Unknown Urine Color Dk yellow Urine Clarity Clear Urine pH 5.0 Urine Specific [place] 1.025 Urine Protein 30 mg/dL (NEG-TRACE) Urine Glucose (UA) Negative mg/dL (NEG) Urine Ketones (Stick) Trace mg/dL (NEG) Urine Blood Negative (NEG) Urine Nitrite Negative (NEG) Urine Bilirubin Moderate (NEG) Urine Urobilinogen Dipstick 0.2 mg/dL (0.2 mg/dL) Urine Leukocyte Esterase Negative (NEG) Urine RBC Rare /HPF (0-2) Urine WBC Rare /HPF (0-4) Urine Squamous Epithelial Cells None /LPF Urine Bacteria 0 /HPF (0-FEW) Urine Hyaline Casts Many /HPF Urine Mucus Marked /LPF Urine Opiates Screen Pos (NEG) Urine Methadone Screen Neg (NEG) Urine Barbiturates Neg (NEG) Urine Phencyclidine Screen Neg (NEG) Urine Amphetamine/Methamphetamine Neg (NEG) Urine Benzodiazepines Screen Neg (NEG) Urine Cocaine Screen Neg (NEG) Urine Cannabinoids Screen Neg (NEG) Urine Ethyl Alcohol Neg (NEG) White Blood Count 14.5 x10^3/uL (4.0-11.0) Red Blood Count 4.16 x10^6/uL (4.30-5.70) Hemoglobin 11.7 g/dL (13.0-17.5) Hematocrit 35.9 % (39.0-53.0) Mean Corpuscular Volume 86 fL (79-100) Mean Corpuscular Hemoglobin 28 pg (25-35) Mean Corpuscular Hemoglobin Concent 33 g/dL (31-37) Red Cell Distribution Width 14.2 % (11.5-14.5) Platelet Count 240 x10^3/uL (140-400) Neutrophils (%) (Auto) 77 % (31-73) Lymphocytes (%) (Auto) 13 % (24-48) Monocytes (%) (Auto) 9 % (0-9) Eosinophils (%) (Auto) 1 % (0-3) Basophils (%) (Auto) 0 % (0-3) Neutrophils # (Auto) 11.1 x10^3uL (1.8-7.7) Lymphocytes # (Auto) 1.8 x10^3/uL (1.0-4.8) Monocytes # (Auto) 1.3 x10^3/uL (0.0-1.1) Eosinophils # (Auto) 0.2 x10^3/uL (0.0-0.7) Basophils # (Auto) 0.0 x10^3/uL (0.0-0.2) Sodium Level 132 mmol/L (136-145) Potassium Level 4.7 mmol/L (3.5-5.1) Chloride Level 97 mmol/L (98-107) Carbon Dioxide Level 22 mmol/L (21-32) Anion Gap 13 (6-14) Blood Urea Nitrogen 84 mg/dL (8-26) Creatinine 5.6 mg/dL (0.7-1.3) Estimated GFR (Cockcroft-Gault) 10.2 BUN/Creatinine Ratio 15 (6-20) Glucose Level 106 mg/dL (70-99) Calcium Level 8.6 mg/dL (8.5-10.1) Total Bilirubin 0.4 mg/dL (0.2-1.0) Aspartate Amino Transf (AST/SGOT) 31 U/L (15-37) Alanine Aminotransferase (ALT/SGPT) 36 U/L (16-63) Alkaline Phosphatase 87 U/L (46-116) Total Protein 7.0 g/dL (6.4-8.2) Albumin 4.0 g/dL (3.4-5.0) Albumin/Globulin Ratio 1.3 (1.0-1.7) Glucose (Fingerstick) 122 mg/dL (70-99) 232 mg/dL (70-99) Laboratory Tests Test 11/09/17 15:21 11/09/17 15:23 11/09/17 15:55 11/09/17 20:27 Glucose (Fingerstick) 131 mg/dL (70-99) 137 mg/dL (70-99) O2 Saturation 94 % (92-99) Arterial Blood pH 7.27 (7.35-7.45) Arterial Blood pCO2 at Patient Temp 42 mmHg (35-46) Arterial Blood pO2 at Patient Temp 83 mmHg (65-108) Arterial Blood HCO3 19 mmol/L (21-28) Arterial Blood Base Excess -8 mmol/L (-3-3) Oxyhemoglobin 93.6 % Methemoglobin 0.2 % (0.0-1.9) Carbon Monoxide, Quantitative 0.6 % (0.0-1.9) FiO2 28.0 White Blood Count 12.4 x10^3/uL (4.0-11.0) Red Blood Count 4.53 x10^6/uL (4.30-5.70) Hemoglobin 12.5 g/dL (13.0-17.5) Hematocrit 38.5 % (39.0-53.0) Mean Corpuscular Volume 85 fL (79-100) Mean Corpuscular Hemoglobin 28 pg (25-35) Mean Corpuscular Hemoglobin Concent 32 g/dL (31-37) Red Cell Distribution Width 13.9 % (11.5-14.5) Platelet Count 269 x10^3/uL (140-400) Neutrophils (%) (Auto) 76 % (31-73) Lymphocytes (%) (Auto) 12 % (24-48) Monocytes (%) (Auto) 9 % (0-9) Eosinophils (%) (Auto) 1 % (0-3) Basophils (%) (Auto) 1 % (0-3) Neutrophils # (Auto) 9.4 x10^3uL (1.8-7.7) Lymphocytes # (Auto) 1.5 x10^3/uL (1.0-4.8) Monocytes # (Auto) 1.2 x10^3/uL (0.0-1.1) Eosinophils # (Auto) 0.2 x10^3/uL (0.0-0.7) Basophils # (Auto) 0.1 x10^3/uL (0.0-0.2) Sodium Level 134 mmol/L (136-145) Potassium Level 4.8 mmol/L (3.5-5.1) Chloride Level 97 mmol/L (98-107) Carbon Dioxide Level 21 mmol/L (21-32) Anion Gap 16 (6-14) Blood Urea Nitrogen 78 mg/dL (8-26) Creatinine 5.8 mg/dL (0.7-1.3) Estimated GFR (Cockcroft-Gault) 9.8 BUN/Creatinine Ratio 13 (6-20) Glucose Level 138 mg/dL (70-99) Lactic Acid Level 1.0 mmol/L (0.4-2.0) Calcium Level 8.9 mg/dL (8.5-10.1) Magnesium Level 2.5 mg/dL (1.8-2.4) Total Bilirubin 0.5 mg/dL (0.2-1.0) Aspartate Amino Transf (AST/SGOT) 35 U/L (15-37) Alanine Aminotransferase (ALT/SGPT) 41 U/L (16-63) Alkaline Phosphatase 94 U/L (46-116) Creatine Kinase 344 U/L (39-308) Creatine Kinase MB (Mass) 4.9 ng/mL (0.0-3.6) Creatine Kinase MB Relative Index 1.4 % (0-4) Troponin I Quantitative < 0.017 ng/mL (0.000-0.055) GI-Nun-U-Type Natriuretic Peptide 478 pg/mL (0-124) Total Protein 7.2 g/dL (6.4-8.2) Albumin 4.2 g/dL (3.4-5.0) Albumin/Globulin Ratio 1.4 (1.0-1.7) Lipase 117 U/L (73-393) Thyroid Stimulating Hormone (TSH) 3.116 uIU/mL (0.358-3.74) Free Thyroxine 0.99 ng/dL (0.76-1.46) Acetone Level Neg (NEG) Test 11/09/17 21:45 11/10/17 03:00 11/10/17 07:02 11/10/17 10:52 Urine Collection Type Unknown Urine Color Dk yellow Urine Clarity Clear Urine pH 5.0 Urine Specific [place] 1.025 Urine Protein 30 mg/dL (NEG-TRACE) Urine Glucose (UA) Negative mg/dL (NEG) Urine Ketones (Stick) Trace mg/dL (NEG) Urine Blood Negative (NEG) Urine Nitrite Negative (NEG) Urine Bilirubin Moderate (NEG) Urine Urobilinogen Dipstick 0.2 mg/dL (0.2 mg/dL) Urine Leukocyte Esterase Negative (NEG) Urine RBC Rare /HPF (0-2) Urine WBC Rare /HPF (0-4) Urine Squamous Epithelial Cells None /LPF Urine Bacteria 0 /HPF (0-FEW) Urine Hyaline Casts Many /HPF Urine Mucus Marked /LPF Urine Opiates Screen Pos (NEG) Urine Methadone Screen Neg (NEG) Urine Barbiturates Neg (NEG) Urine Phencyclidine Screen Neg (NEG) Urine Amphetamine/Methamphetamine Neg (NEG) Urine Benzodiazepines Screen Neg (NEG) Urine Cocaine Screen Neg (NEG) Urine Cannabinoids Screen Neg (NEG) Urine Ethyl Alcohol Neg (NEG) White Blood Count 14.5 x10^3/uL (4.0-11.0) Red Blood Count 4.16 x10^6/uL (4.30-5.70) Hemoglobin 11.7 g/dL (13.0-17.5) Hematocrit 35.9 % (39.0-53.0) Mean Corpuscular Volume 86 fL (79-100) Mean Corpuscular Hemoglobin 28 pg (25-35) Mean Corpuscular Hemoglobin Concent 33 g/dL (31-37) Red Cell Distribution Width 14.2 % (11.5-14.5) Platelet Count 240 x10^3/uL (140-400) Neutrophils (%) (Auto) 77 % (31-73) Lymphocytes (%) (Auto) 13 % (24-48) Monocytes (%) (Auto) 9 % (0-9) Eosinophils (%) (Auto) 1 % (0-3) Basophils (%) (Auto) 0 % (0-3) Neutrophils # (Auto) 11.1 x10^3uL (1.8-7.7) Lymphocytes # (Auto) 1.8 x10^3/uL (1.0-4.8) Monocytes # (Auto) 1.3 x10^3/uL (0.0-1.1) Eosinophils # (Auto) 0.2 x10^3/uL (0.0-0.7) Basophils # (Auto) 0.0 x10^3/uL (0.0-0.2) Sodium Level 132 mmol/L (136-145) Potassium Level 4.7 mmol/L (3.5-5.1) Chloride Level 97 mmol/L (98-107) Carbon Dioxide Level 22 mmol/L (21-32) Anion Gap 13 (6-14) Blood Urea Nitrogen 84 mg/dL (8-26) Creatinine 5.6 mg/dL (0.7-1.3) Estimated GFR (Cockcroft-Gault) 10.2 BUN/Creatinine Ratio 15 (6-20) Glucose Level 106 mg/dL (70-99) Calcium Level 8.6 mg/dL (8.5-10.1) Total Bilirubin 0.4 mg/dL (0.2-1.0) Aspartate Amino Transf (AST/SGOT) 31 U/L (15-37) Alanine Aminotransferase (ALT/SGPT) 36 U/L (16-63) Alkaline Phosphatase 87 U/L (46-116) Total Protein 7.0 g/dL (6.4-8.2) Albumin 4.0 g/dL (3.4-5.0) Albumin/Globulin Ratio 1.3 (1.0-1.7) Glucose (Fingerstick) 122 mg/dL (70-99) 232 mg/dL (70-99) Assessment/Plan Assessment/Plan IMP JUSTICE-CR OF 5.8-UA NEGATIVE DEHYDRATION CAUSING ABOVE DIZZINESS HYPOTENSION DM II HTN PLAN STOP MOBIC STOP LISINOPRIL AND METFORMIN RENAL SONO NEG CONT IVF'S UPDATED FAMILY LABS IN AM ELLEN FUENTES MD Nov 10, 2017 13:37
[2017-11-10 14:25] VITALS: BP 107/57
--- NOTE | 2017-11-10 17:02 | CARD ---
MR#: [id number] Date of Study: 11/10/2017 Ordering Physician: ROMMEL SIDHU, Referring Physician: OLI EVERETT Tech: Elisha Maynard RDCS APPROVED REPORT EXAM: Two-dimensional and M-mode echocardiogram with Doppler and color Doppler. Other Information Quality : Good INDICATION Cardiomyopathy 2D DIMENSIONS RVDd2.8 (2.9-3.5cm)Left Atrium(2D)3.6 (1.6-4.0cm) IVSd1.4 (0.7-1.1cm)Aortic Root(2D)2.9 (2.0-3.7cm) LVDd6.3 (3.9-5.9cm)LVOT Diameter2.3 (1.8-2.4cm) PWd1.3 (0.7-1.1cm)LVDs3.7 (2.5-4.0cm) FS (%) 30.0 %SV143.9 ml LVEF(%)60.0 (>50%) Aortic Valve LVOT Peak Nick.120.8cm/sLVOT VTI 24.11cm AI P 1/2 [id number] Mitral Valve MV E Eueozfpo537.0cm/sMV DECEL [id number] MV A Mmctfbir537.1cm/sMV [id number] E/A Ratio1.2MVA (PHT)4.99cm2 TDI E/Lateral E'10.1E/Medial E'18.1 Tricuspid Valve TR P. Jlebbyoj059lr/sRAP [id number] TR Peak Gr.[id number] Pulmonary Vein S1 Auqkjxhm10.6cm/sD2 Xqfvpuyh53.4cm/s LEFT VENTRICLE The Left Ventricle is mildly dilated. There is mild concentric left ventricular hypertrophy. Left hillary tricle systolic function is normal. The Ejection Fraction is 55%. There is normal LV segmental wall m otion. Transmitral Doppler flow pattern is Grade II-pseudonormal filling dynamics. RIGHT VENTRICLE The right ventricle is normal size. The right ventricular systolic function is normal. ATRIA The left atrium size is normal. The right atrium size is normal. The interatrial septum is intact wit h no evidence for an atrial septal defect or patent foramen ovale as noted on 2-D or Doppler imaging. AORTIC VALVE The aortic valve is calcified but opens well. Doppler and Color Flow revealed mild aortic regurgitati on. There is no significant aortic valvular stenosis. MITRAL VALVE The mitral valve is normal in structure and function. There is no evidence of mitral valve prolapse. There is no mitral valve stenosis. Doppler and Color-flow revealed trace mitral regurgitation. TRICUSPID VALVE The tricuspid valve is normal in structure and function. Doppler and Color Flow revealed trace tricus pid regurgitation. There is mild pulmonary hypertension. The PA pressure was estimated at 37 mmHg. Th ere is no tricuspid valve stenosis. PULMONIC VALVE The pulmonary valve is normal in structure and function. Doppler and Color Flow revealed no pulmonic valvular regurgitation. There is no pulmonic valvular stenosis. GREAT VESSELS The aortic root is normal in size. The ascending aorta is normal in size. The IVC is normal in size a nd collapses >50% with inspiration. PERICARDIAL EFFUSION There is no evidence of significant pericardial effusion. Critical Notification Critical Value: No <Conclusion> Left ventricle systolic function is normal. The Ejection Fraction is 55%. There is normal LV segmental wall motion. Mild aortic regurgitation. Trace mitral regurgitation. Trace tricuspid regurgitation. There is mild pulmonary hypertension. The PA pressure was estimated at 37 mmHg. There is no evidence of significant pericardial effusion. Signed by : Alton Sidhu, Electronically Approved : 11/10/2017 17:00:51
[2017-11-10 19:49] VITALS: BP 143/63
[2017-11-10] MEDS: traZODone 50 MG TABLET. PO SCH (21:56)
[2017-11-10 23:30] VITALS: BP 153/81
[2017-11-11] MEDS: IV NORMAL SALINE 1000ML BAG 1,000 ML IV SCH ×4 (01:22→20:13)
[2017-11-11 03:26] VITALS: BP 196/88
[2017-11-11 05:43] LABS: CALCIUM 9.1 mg/dL (8.5-10.1); CREATININE 1.4 mg/dL (0.7-1.3); GFR 50.5; POTASSIUM 4.9 mmol/L (3.5-5.1)
[2017-11-11 07:00] VITALS: BP 188/87
[2017-11-11] MEDS ORDERED: MORPHINE ER 15 MG TABLET.ER PO SCH (09:00)
[2017-11-11] MEDS: CLOPIDOGREL BISULFATE 75 MG TABLET PO SCH ×2 (09:00→14:24)
[2017-11-11] MEDS ORDERED: NON FORMULARY ITEM (Ubidecarenone (Coenzyme Q10) 100 MG) PO SCH (09:00)
[2017-11-11] MEDS ORDERED: MELOXICAM 7.5 MG TABLET PO SCH (09:00)
[2017-11-11] MEDS: DOCUSATE SODIUM 100 MG CAPSULE. PO SCH (09:00)
[2017-11-11] MEDS ORDERED: METOPROLOL TART IMMED RELEASE 50 MG TABLET. PO SCH (09:00)
[2017-11-11] MEDS: MORPHINE ER 15 MG TABLET.ER PO SCH ×2 (09:08→20:16)
[2017-11-11] MEDS: HEPARIN PF for SUB-Q USE 5,000 UNIT/0.5 ML VIAL. SQ SCH ×3 (09:19→21:29)
[2017-11-11] MEDS: ASPIRIN 325 MG TABLET PO SCH ×2 (09:37→20:12)
[2017-11-11] MEDS: OMEGA-3 FATTY ACIDS/FISH OIL 1,000 MG CAPSULE. PO SCH (09:38)
[2017-11-11] MEDS: LABETALOL HCL 200 MG TABLET PO SCH ×2 (09:39→20:13)
[2017-11-11] MEDS: GABAPENTIN 400 MG CAPSULE. PO SCH ×3 (09:39→20:12)
[2017-11-11] MEDS: CHOLECALCIFEROL (VITAMIN D3) 1,000 UNIT TABLET PO SCH (09:39)
[2017-11-11] MEDS: CYANOCOBALAMIN (VITAMIN B-12) 1,000 MCG TABLET. PO SCH (09:40)
[2017-11-11] MEDS: INSULIN LISPRO 300 UNITS/3 ML INSULN.PEN. SQ SCH ×3 (09:45→17:00)
[2017-11-11] MEDS: INSULIN NPH/REG INSULIN 70/30 300 UNITS/3 ML INSULN.PEN. SQ SCH ×2 (10:06→17:24)
--- NOTE | 2017-11-11 10:30 | PDOC ---
PROGRESS NOTES Chief Complaint Chief Complaint renal failure, heat exposure History of Present Illness History of Present Illness Assessment/Plan Assessment/Plan encephalopathy, was confused early this AM, NOW OK generalize weakness with JUSTICE JUSTICE, vasomotor vs ATN metabolic acidosis dm2 htn uncontrolled H/O CAD WITH pci 4ys ago stable systolic chf ef was 40% plan: renal consult us renal ivf 2L in er, CONT NS 100cc/h , ssi labs daily DVT ppx PTOT Vitals Vitals Vital Signs Date Time Temp Pulse Resp B/P (MAP) Pulse Ox O2 Delivery O2 Flow Rate FiO2 11/11/17 09:39 96 188/87 11/11/17 07:00 97.9 18 95 Room Air 97.9 Physical Exam Physical Exam GEN.: No apparent distress. Alert and oriented. HEENT: Head is normocephalic, atraumatic NECK: Supple. LUNGS: Clear to auscultation. HEART: RRR, S1, S2 present. Peripheral pulses intact ABDOMEN: Soft, nontender. Positive bowel sounds. EXTREMITIES: Without any cyanosis. NEUROLOGIC: Normal speech, normal tone PSYCHIATRIC: Normal affect, normal mood. SKIN: No ulcerations General: Alert, Oriented X3, Cooperative, No acute distress Heart: Regular rate, Normal S1 Lungs: Clear Abdomen: Normal bowel sounds, Soft Extremities: No clubbing, No cyanosis Skin: No breakdown Labs LABS Laboratory Tests Test 11/10/17 10:52 11/10/17 17:11 11/10/17 20:54 11/11/17 05:00 Glucose (Fingerstick) 232 mg/dL (70-99) 247 mg/dL (70-99) 228 mg/dL (70-99) Sodium Level 133 mmol/L (136-145) Potassium Level 4.9 mmol/L (3.5-5.1) Chloride Level 102 mmol/L (98-107) Carbon Dioxide Level 23 mmol/L (21-32) Anion Gap 8 (6-14) Blood Urea Nitrogen 53 mg/dL (8-26) Creatinine 1.4 mg/dL (0.7-1.3) Estimated GFR (Cockcroft-Gault) 50.5 Glucose Level 227 mg/dL (70-99) Calcium Level 9.1 mg/dL (8.5-10.1) Test 11/11/17 07:33 Glucose (Fingerstick) 214 mg/dL (70-99) Assessment and Plan Assessmemt and Plan Problems Medical Problems: (1) Acute renal failure Status: Acute Comment Review of Relevant I have reviewed the following items kelsie (where applicable) has been applied. Labs Laboratory Tests Test 11/09/17 15:21 11/09/17 15:23 11/09/17 15:55 11/09/17 20:27 Glucose (Fingerstick) 131 mg/dL (70-99) 137 mg/dL (70-99) O2 Saturation 94 % (92-99) Arterial Blood pH 7.27 (7.35-7.45) Arterial Blood pCO2 at Patient Temp 42 mmHg (35-46) Arterial Blood pO2 at Patient Temp 83 mmHg (65-108) Arterial Blood HCO3 19 mmol/L (21-28) Arterial Blood Base Excess -8 mmol/L (-3-3) Oxyhemoglobin 93.6 % Methemoglobin 0.2 % (0.0-1.9) Carbon Monoxide, Quantitative 0.6 % (0.0-1.9) FiO2 28.0 White Blood Count 12.4 x10^3/uL (4.0-11.0) Red Blood Count 4.53 x10^6/uL (4.30-5.70) Hemoglobin 12.5 g/dL (13.0-17.5) Hematocrit 38.5 % (39.0-53.0) Mean Corpuscular Volume 85 fL (79-100) Mean Corpuscular Hemoglobin 28 pg (25-35) Mean Corpuscular Hemoglobin Concent 32 g/dL (31-37) Red Cell Distribution Width 13.9 % (11.5-14.5) Platelet Count 269 x10^3/uL (140-400) Neutrophils (%) (Auto) 76 % (31-73) Lymphocytes (%) (Auto) 12 % (24-48) Monocytes (%) (Auto) 9 % (0-9) Eosinophils (%) (Auto) 1 % (0-3) Basophils (%) (Auto) 1 % (0-3) Neutrophils # (Auto) 9.4 x10^3uL (1.8-7.7) Lymphocytes # (Auto) 1.5 x10^3/uL (1.0-4.8) Monocytes # (Auto) 1.2 x10^3/uL (0.0-1.1) Eosinophils # (Auto) 0.2 x10^3/uL (0.0-0.7) Basophils # (Auto) 0.1 x10^3/uL (0.0-0.2) Sodium Level 134 mmol/L (136-145) Potassium Level 4.8 mmol/L (3.5-5.1) Chloride Level 97 mmol/L (98-107) Carbon Dioxide Level 21 mmol/L (21-32) Anion Gap 16 (6-14) Blood Urea Nitrogen 78 mg/dL (8-26) Creatinine 5.8 mg/dL (0.7-1.3) Estimated GFR (Cockcroft-Gault) 9.8 BUN/Creatinine Ratio 13 (6-20) Glucose Level 138 mg/dL (70-99) Lactic Acid Level 1.0 mmol/L (0.4-2.0) Calcium Level 8.9 mg/dL (8.5-10.1) Magnesium Level 2.5 mg/dL (1.8-2.4) Total Bilirubin 0.5 mg/dL (0.2-1.0) Aspartate Amino Transf (AST/SGOT) 35 U/L (15-37) Alanine Aminotransferase (ALT/SGPT) 41 U/L (16-63) Alkaline Phosphatase 94 U/L (46-116) Creatine Kinase 344 U/L (39-308) Creatine Kinase MB (Mass) 4.9 ng/mL (0.0-3.6) Creatine Kinase MB Relative Index 1.4 % (0-4) Troponin I Quantitative < 0.017 ng/mL (0.000-0.055) PK-Ieq-S-Type Natriuretic Peptide 478 pg/mL (0-124) Total Protein 7.2 g/dL (6.4-8.2) Albumin 4.2 g/dL (3.4-5.0) Albumin/Globulin Ratio 1.4 (1.0-1.7) Lipase 117 U/L (73-393) Thyroid Stimulating Hormone (TSH) 3.116 uIU/mL (0.358-3.74) Free Thyroxine 0.99 ng/dL (0.76-1.46) Acetone Level Neg (NEG) Test 11/09/17 21:45 11/10/17 03:00 11/10/17 07:02 11/10/17 10:52 Urine Collection Type Unknown Urine Color Dk yellow Urine Clarity Clear Urine pH 5.0 Urine Specific [place] 1.025 Urine Protein 30 mg/dL (NEG-TRACE) Urine Glucose (UA) Negative mg/dL (NEG) Urine Ketones (Stick) Trace mg/dL (NEG) Urine Blood Negative (NEG) Urine Nitrite Negative (NEG) Urine Bilirubin Moderate (NEG) Urine Urobilinogen Dipstick 0.2 mg/dL (0.2 mg/dL) Urine Leukocyte Esterase Negative (NEG) Urine RBC Rare /HPF (0-2) Urine WBC Rare /HPF (0-4) Urine Squamous Epithelial Cells None /LPF Urine Bacteria 0 /HPF (0-FEW) Urine Hyaline Casts Many /HPF Urine Mucus Marked /LPF Urine Opiates Screen Pos (NEG) Urine Methadone Screen Neg (NEG) Urine Barbiturates Neg (NEG) Urine Phencyclidine Screen Neg (NEG) Urine Amphetamine/Methamphetamine Neg (NEG) Urine Benzodiazepines Screen Neg (NEG) Urine Cocaine Screen Neg (NEG) Urine Cannabinoids Screen Neg (NEG) Urine Ethyl Alcohol Neg (NEG) White Blood Count 14.5 x10^3/uL (4.0-11.0) Red Blood Count 4.16 x10^6/uL (4.30-5.70) Hemoglobin 11.7 g/dL (13.0-17.5) Hematocrit 35.9 % (39.0-53.0) Mean Corpuscular Volume 86 fL (79-100) Mean Corpuscular Hemoglobin 28 pg (25-35) Mean Corpuscular Hemoglobin Concent 33 g/dL (31-37) Red Cell Distribution Width 14.2 % (11.5-14.5) Platelet Count 240 x10^3/uL (140-400) Neutrophils (%) (Auto) 77 % (31-73) Lymphocytes (%) (Auto) 13 % (24-48) Monocytes (%) (Auto) 9 % (0-9) Eosinophils (%) (Auto) 1 % (0-3) Basophils (%) (Auto) 0 % (0-3) Neutrophils # (Auto) 11.1 x10^3uL (1.8-7.7) Lymphocytes # (Auto) 1.8 x10^3/uL (1.0-4.8) Monocytes # (Auto) 1.3 x10^3/uL (0.0-1.1) Eosinophils # (Auto) 0.2 x10^3/uL (0.0-0.7) Basophils # (Auto) 0.0 x10^3/uL (0.0-0.2) Sodium Level 132 mmol/L (136-145) Potassium Level 4.7 mmol/L (3.5-5.1) Chloride Level 97 mmol/L (98-107) Carbon Dioxide Level 22 mmol/L (21-32) Anion Gap 13 (6-14) Blood Urea Nitrogen 84 mg/dL (8-26) Creatinine 5.6 mg/dL (0.7-1.3) Estimated GFR (Cockcroft-Gault) 10.2 BUN/Creatinine Ratio 15 (6-20) Glucose Level 106 mg/dL (70-99) Calcium Level 8.6 mg/dL (8.5-10.1) Total Bilirubin 0.4 mg/dL (0.2-1.0) Aspartate Amino Transf (AST/SGOT) 31 U/L (15-37) Alanine Aminotransferase (ALT/SGPT) 36 U/L (16-63) Alkaline Phosphatase 87 U/L (46-116) Total Protein 7.0 g/dL (6.4-8.2) Albumin 4.0 g/dL (3.4-5.0) Albumin/Globulin Ratio 1.3 (1.0-1.7) Glucose (Fingerstick) 122 mg/dL (70-99) 232 mg/dL (70-99) Test 11/10/17 17:11 11/10/17 20:54 11/11/17 05:00 11/11/17 07:33 Glucose (Fingerstick) 247 mg/dL (70-99) 228 mg/dL (70-99) 214 mg/dL (70-99) Sodium Level 133 mmol/L (136-145) Potassium Level 4.9 mmol/L (3.5-5.1) Chloride Level 102 mmol/L (98-107) Carbon Dioxide Level 23 mmol/L (21-32) Anion Gap 8 (6-14) Blood Urea Nitrogen 53 mg/dL (8-26) Creatinine 1.4 mg/dL (0.7-1.3) Estimated GFR (Cockcroft-Gault) 50.5 Glucose Level 227 mg/dL (70-99) Calcium Level 9.1 mg/dL (8.5-10.1) Laboratory Tests Test 11/10/17 10:52 11/10/17 17:11 11/10/17 20:54 11/11/17 05:00 Glucose (Fingerstick) 232 mg/dL (70-99) 247 mg/dL (70-99) 228 mg/dL (70-99) Sodium Level 133 mmol/L (136-145) Potassium Level 4.9 mmol/L (3.5-5.1) Chloride Level 102 mmol/L (98-107) Carbon Dioxide Level 23 mmol/L (21-32) Anion Gap 8 (6-14) Blood Urea Nitrogen 53 mg/dL (8-26) Creatinine 1.4 mg/dL (0.7-1.3) Estimated GFR (Cockcroft-Gault) 50.5 Glucose Level 227 mg/dL (70-99) Calcium Level 9.1 mg/dL (8.5-10.1) Test 11/11/17 07:33 Glucose (Fingerstick) 214 mg/dL (70-99) Medications Current Medications Sodium Chloride 1,000 ml @ 1,000 mls/hr Q1H IV Last administered on 11/09/17at 16:20; Start 11/09/17 at 15:23; Stop 11/09/17 at 16:22; Status DC Sodium Chloride 1,000 ml @ 1,000 mls/hr 1X ONCE IV Last administered on at 16:20; Start 11/09/17 at 16:30; Stop 11/09/17 at 17:29; Status DC Sodium Chloride 1,000 ml @ 100 mls/hr 1X ONCE IV Last administered on at 19:50; Start 11/09/17 at 16:45; Stop 11/10/17 at 02:44; Status DC Acetaminophen (Tylenol) 650 mg PRN Q6HRS PRN PO FEVER; Start 11/09/17 at 18:15 Ondansetron HCl (Zofran) 4 mg PRN Q6HRS PRN IV NAUSEA/VOMITING; Start 11/09/17 at 18:15 Morphine Sulfate (Morphine Sulfate) 2 mg PRN Q2HR PRN IV MODERATE TO SEVERE PAIN; Start 11/09/17 at 18:15 Tramadol HCl (Ultram) 50 mg PRN Q6HRS PRN PO MILD TO MODERATE PAIN; Start 11/09 at 18:15 Hydralazine HCl (Apresoline Inj) 10 mg PRN Q4HRS PRN IVP ELEVATED BP, SEE COMMENTS; Start 11/09/17 at 18:15 Docusate Sodium (Colace) 100 mg PRN DAILY PRN PO CONSTIPATION; Start 11/09/17 at 18:15 Sodium Chloride 1,000 ml @ 100 mls/hr Q10H IV Last administered on 11/11/17at 01:22; Start 11/09/17 at 18:15 Insulin Human Lispro (HumaLOG) 0-9 UNITS TIDWMEALS SQ Last administered on 11/11at 09:45; Start 11/10/17 at 08:00 Dextrose (Dextrose 50%-Water Syringe) 12.5 gm PRN Q15MIN PRN IV SEE COMMENTS; Start 11/09/17 at 18:15 Heparin Sodium (Porcine) (Heparin Sq) 5,000 unit Q8HRS SQ Last administered on 11/11/17at 09:19; Start 11/09/17 at 19:00 Trazodone HCl (Desyrel) 50 mg QHS PO Last administered on 11/10/17at 21:56; Start 11/09/17 at 21:15 Morphine Sulfate (Ms Contin) 15 mg BID PO Last administered on 11/11/17at 09:08 ; Start 11/09/17 at 21:15 Aspirin (Soni Aspirin) 325 mg BID PO Last administered on 11/11/17at 09:37; Start 11/11/17 at 09:00 Vitamin D (Vitamin D3) 2,000 unit DAILY PO Last administered on 11/11/17at 09:39 ; Start 11/11/17 at 09:00 Clopidogrel Bisulfate (Plavix) 75 mg DAILY PO ; Start 11/11/17 at 09:00 Docusate Sodium (Colace) 100 mg DAILY PO ; Start 11/11/17 at 09:00 Metoprolol Tartrate (Lopressor) 1,000 mg BID PO ; Start 11/11/17 at 09:00; Stop 11/11/17 at 09:22; Status DC Morphine Sulfate (Ms Contin) 15 mg BID PO ; Start 11/11/17 at 09:00 Pantoprazole Sodium (Protonix) 40 mg HS PO Last administered on 11/11/17at 09:06 ; Start 11/11/17 at 21:00 Trazodone HCl (Desyrel) 50 mg HS PO ; Start 11/11/17 at 21:00 Atorvastatin Calcium (Lipitor) 40 mg QHS PO ; Start 11/11/17 at 21:00 Cyanocobalamin (Vitamin B-12) 2,500 mcg DAILY PO Last administered on at 09:40; Start 11/11/17 at 09:00 Fish Oil (Fish Oil) 1,000 mg DAILY PO Last administered on 11/11/17at 09:38; Start 11/11/17 at 09:00 Gabapentin (Neurontin) 400 mg TID PO Last administered on 11/11/17at 09:39; Start 11/11/17 at 09:00 Insulin Human Isoph/Insulin Regular (HumuLIN 70/30) 30 units DAILYWSUP SQ ; Start 11/11/17 at 17:00 Insulin Human Isoph/Insulin Regular (HumuLIN 70/30) 40 units DAILYWBKFT SQ Last administered on 11/11/17at 10:06; Start 11/11/17 at 09:00 Labetalol HCl (Trandate) 200 mg BID PO Last administered on 11/11/17at 09:39; Start 11/11/17 at 09:00 Meloxicam (Mobic) 15 mg DAILY PO ; Start 11/11/17 at 09:00 Non-Formulary Medication (Ubidecarenone (Coenzyme Q10)) 100 mg BID PO ; Start at 09:00; Status UNV Active Scripts Active Reported Gralise (Gabapentin) 600 Mg Tab.er.24h 1,500 Mg PO DAILY Trazodone Hcl 50 Mg Tablet 50 Mg PO HS Hydrocodone-Apap 5-325 (Hydrocodone Bit/Acetaminophen) 1 Each Tablet 1 Tab PO PRN Q6HRS PRN Morphine Sulfate Er (Morphine Sulfate) 15 Mg Tablet.er 15 Mg PO BID Meloxicam 15 Mg Tablet 15 Mg PO DAILY Colace (Docusate Sodium) 100 Mg Capsule 100 Mg PO DAILY Labetalol Hcl 200 Mg Tablet 200 Mg PO BID Atorvastatin Calcium 80 Mg Tablet 40 Mg PO DAILY Flax Seed Oil 1,300 Mg Softgel (Flaxseed/Omega3,6,9/Fatty Acid) 1 Each Capsule 1 Each PO DAILY Coenzyme Q10 (Ubidecarenone) 100 Mg Tablet 100 Mg PO BID Vitamin D3 (Cholecalciferol (Vitamin D3)) 1,000 Unit Tablet 2 Tab AD DAILY Vitamin B12 (Cyanocobalamin (Vitamin B-12)) 2,500 Mcg Tablet 2,500 Mcg PO DAILY Nitrostat (Nitroglycerin) 0.4 Mg Tab.subl 1 Tab SL UD Pantoprazole Sodium 40 Mg Tablet.dr 1 Tab PO HS Novolin 70-30 100 Unit/Ml Vial (Hum Insulin Nph/Reg Insulin Hm) 100 Unit/1 Ml Vial 30 Unit SQ DAILYWSUP Novolin 70-30 100 Unit/Ml Vial (Hum Insulin Nph/Reg Insulin Hm) 100 Unit/1 Ml Vial 40 Unit SQ DAILY Humalog (Insulin Lispro) 100 Unit/1 Ml Cartridge 1 Unit SQ Clopidogrel (Clopidogrel Bisulfate) 75 Mg Tablet 1 Tab PO DAILY Aspirin 325 Mg Tablet 325 Mg PO BID Vitals/I & O Vital Sign - Last 24 Hours 11/10/17 11/10/17 11/10/17 11/10/17 11:11 14:25 19:41 19:49 Temp 98.1 97.9 98.7 98.1 97.9 98.7 Pulse 89 79 84 Resp 18 20 20 B/P (MAP) 149/71 (97) 107/57 (74) 143/63 (89) Pulse Ox 96 95 98 O2 Delivery Room Air Room Air Room Air Room Air 11/10/17 11/10/17 11/11/17 11/11/17 21:57 23:30 02:00 03:26 Temp 98.1 98.1 Pulse 92 93 Resp 18 18 B/P (MAP) 153/81 (105) 196/88 (124) Pulse Ox 100 96 O2 Delivery Room Air Room Air Room Air Room Air 11/11/17 11/11/17 07:00 09:39 Temp 97.9 97.9 Pulse 96 96 Resp 18 B/P (MAP) 188/87 (120) 188/87 Pulse Ox 95 O2 Delivery Room Air Intake and Output 11/10/17 11/10/17 11/11/17 15:00 23:00 07:00 Intake Total 640 ml 410 ml Output Total 1000 ml 200 ml Balance -1000 ml 440 ml 410 ml EMIGDIO HUNTER MD Nov 11, 2017 10:30
[2017-11-11 11:00] VITALS: BP 163/81
--- NOTE | 2017-11-11 12:06 | PDOC ---
Renal-Progress Notes Subjective Notes Notes STABLE History of Present Illness Hx of present illness BETTER Vitals Vitals Vital Signs Date Time Temp Pulse Resp B/P (MAP) Pulse Ox O2 Delivery O2 Flow Rate FiO2 11/11/17 11:00 98.1 97 18 163/81 (108) 97 Room Air 98.1 Weight Weight [ ] I.O. Intake and Output Intake and Output 11/11/17 07:00 Intake Total 1050 ml Output Total 1200 ml Balance -150 ml Intake Oral 1050 ml Output Urine Total 1200 ml # Voids 5 Labs Labs Laboratory Tests Test 11/10/17 17:11 11/10/17 20:54 11/11/17 05:00 11/11/17 07:33 Glucose (Fingerstick) 247 mg/dL (70-99) 228 mg/dL (70-99) 214 mg/dL (70-99) Sodium Level 133 mmol/L (136-145) Potassium Level 4.9 mmol/L (3.5-5.1) Chloride Level 102 mmol/L (98-107) Carbon Dioxide Level 23 mmol/L (21-32) Anion Gap 8 (6-14) Blood Urea Nitrogen 53 mg/dL (8-26) Creatinine 1.4 mg/dL (0.7-1.3) Estimated GFR (Cockcroft-Gault) 50.5 Glucose Level 227 mg/dL (70-99) Calcium Level 9.1 mg/dL (8.5-10.1) Test 11/11/17 10:40 Glucose (Fingerstick) 227 mg/dL (70-99) Review of Systems Constitutional: yes: alert, oriented Ears/Nose/Throat: Yes: no symptom reported Eyes: Yes: no symptom reported Pulmonary: Yes no symptom reported Cardiovascular: Yes no symptom reported Gastrointestional: Yes: no symptom reported Genitourinary: Yes: no symptom reported Musculoskeletal: Yes: no symptom reported Skin: Yes no symptom reported Psychiatric/Neurological: Yes: no symptom reported Endocrine: Yes: no symptom reported Hematologic/Lymphatic: Yes: no symptom reported Physical Exam General Appearance: no apparent distress Respiratory: bilateral CTA Heart: S1S2, RRR Abdomen: soft, bowel sounds present Genitourinary: bladder flat Extremities: pulses present Neurology: alert, oriented Musculoskeletal: Osteoarthritis Assessment Assessment IMP JUSTICE-ESSENTIALLY RESOLVED DEHYDRATION PLAN ENC PO FLUIDS OK TO D/C FROM RENAL STANDPOINT WILL SIGN OFF FUENTES,ELLEN S MD Nov 11, 2017 12:06
[2017-11-11] MEDS ORDERED: LISI40TA2 (13:21)
[2017-11-11] MEDS ORDERED: LISI-334 PO (13:25)
[2017-11-11 15:00] VITALS: BP 195/78
--- NOTE | 2017-11-11 17:38 | PDOC2 ---
NEUROLOGY CONSULT Date of Admission Date of Admission DATE: 11/11/17 TIME: 17:23 Reason for Consult Reason for Consult: IMPRESSION: Cognitive impairment. Intermittent confusional episodes. Memory decline. Intermittent tremor like movements. ALLAN? Renal failure. DM. HTN. CAD. Chronic narcotics use. Obesity. RECOMMENDATIONS/PLAN: EEG. Lab: see orders. Treat medical diseases. Sleep study. Dementia evaluation as outpatient base. Discussed with his in all detail at bedside on 11/11. HCT: Negative. HISTORY OF THE PRESENT ILLNESS: 67-y-old male patient with above medical diseases has intermittent symptoms in the past months or a year as confusional episodes, forgetfulness, unable to continue normal conversations sometimes, or word finding problems, but other times are completely normal. He stated he has chronic back pain and knee pain and he has been taken Narcotics on a daily basis for years. No focalized sensory or motor deficits. His ctr. was high. PAST MEDICAL HISTORY Cardiovascular: CAD (with stent to RCA (left to right collaterals & OM - 2016) , HTN, [place], Hyperlipidemia GI: Constipation, GERD Musculoskeletal: Osteoarthritis Endocrine: Diabetes PAST SURGICAL HISTORY No pertinent history FAMILY HISTORY Diabetes, Heart Disease, Hypertension ALLERGIES Coded Allergies: Ntlocpv-Eul-Wvn Reductase Inhibitor (Verified Allergy, Intermediate, 06/30/15) Worsens myalgia SOCIAL HISTORY Smoke: No ALCOHOL: none Drugs: None Lives: with Family MEDICATIONS: Refer to [facility] REVIEW OF SYSTEMS: Constitutional: Obesity. Head: No traumatic brain or head injury. Skin: No edema, or rash. Ear: No infection. Eyes: No vision loss or color blindness. Nose: No bleeding or purulent discharges. Hearing: No hearing decrease. Neck: No injury. Cardiac: HTN. Pulmonary: No OPD. GI: No GI ulcer, GI bleeding. Urinary/genital: No dysuria, incontinence, urinary retention. Endocrinologic: Diabetes Mellitus, obesity. Skeletomuscular: No muscular atrophy, deformity. Neurological: see HP. Psychiatric: Denies drug use/abuse. Otherwise, not [id number] review of systems. PHYSICAL EXAMINATION: General appearance is in no acute distress. HEENT: Normocephalic and nontraumatic. Eyes, nose, ears, and throat are unremarkable. Neck is supple. No lymphadenopathy. No crepitus. Cardiovascular: S1, S2, regular rate and rhythm. Pulmonary: Clear to auscultation bilaterally. Abdomen: Bowel sounds are positive. Abdomen is soft, nontender, and nondistended. Extremities: No rash, lesions, or edema. No restriction of range of motion NEUROLOGICAL EXAMINATION: Awake. Oriented to time, place and person. PERRL. EOMI. CN: no focal findings. Muscle tone: within normal. Muscle strength: 5 DTR: 2 Plantar reflex: Flexor response bilaterally Gait: At baseline normal. Sensory exam: no abnormal findings. No cerebellar signs elicited. F-T-N test accurate. Current Medications Current Medications Current Medications Sodium Chloride 1,000 ml @ 1,000 mls/hr Q1H IV Last administered on 11/09/17at 16:20; Start 11/09/17 at 15:23; Stop 11/09/17 at 16:22; Status DC Sodium Chloride 1,000 ml @ 1,000 mls/hr 1X ONCE IV Last administered on at 16:20; Start 11/09/17 at 16:30; Stop 11/09/17 at 17:29; Status DC Sodium Chloride 1,000 ml @ 100 mls/hr 1X ONCE IV Last administered on at 19:50; Start 11/09/17 at 16:45; Stop 11/10/17 at 02:44; Status DC Acetaminophen (Tylenol) 650 mg PRN Q6HRS PRN PO FEVER; Start 11/09/17 at 18:15 Ondansetron HCl (Zofran) 4 mg PRN Q6HRS PRN IV NAUSEA/VOMITING; Start 11/09/17 at 18:15 Morphine Sulfate (Morphine Sulfate) 2 mg PRN Q2HR PRN IV MODERATE TO SEVERE PAIN; Start 11/09/17 at 18:15 Tramadol HCl (Ultram) 50 mg PRN Q6HRS PRN PO MILD TO MODERATE PAIN; Start 11/09 at 18:15; Stop 11/11/17 at 11:52; Status DC Hydralazine HCl (Apresoline Inj) 10 mg PRN Q4HRS PRN IVP ELEVATED BP, SEE COMMENTS; Start 11/09/17 at 18:15 Docusate Sodium (Colace) 100 mg PRN DAILY PRN PO CONSTIPATION; Start 11/09/17 at 18:15 Sodium Chloride 1,000 ml @ 100 mls/hr Q10H IV Last administered on 11/11/17at 01:22; Start 11/09/17 at 18:15 Insulin Human Lispro (HumaLOG) 0-9 UNITS TIDWMEALS SQ Last administered on 11/11at 13:16; Start 11/10/17 at 08:00 Dextrose (Dextrose 50%-Water Syringe) 12.5 gm PRN Q15MIN PRN IV SEE COMMENTS; Start 11/09/17 at 18:15 Heparin Sodium (Porcine) (Heparin Sq) 5,000 unit Q8HRS SQ Last administered on 11/11/17at 14:30; Start 11/09/17 at 19:00 Trazodone HCl (Desyrel) 50 mg QHS PO Last administered on 11/10/17at 21:56; Start 11/09/17 at 21:15 Morphine Sulfate (Ms Contin) 15 mg BID PO Last administered on 11/11/17at 09:08 ; Start 11/09/17 at 21:15 Aspirin (Soni Aspirin) 325 mg BID PO Last administered on 11/11/17at 09:37; Start 11/11/17 at 09:00 Vitamin D (Vitamin D3) 2,000 unit DAILY PO Last administered on 11/11/17at 09:39 ; Start 11/11/17 at 09:00 Clopidogrel Bisulfate (Plavix) 75 mg DAILY PO Last administered on 11/11/17at 14 :24; Start 11/11/17 at 09:00 Docusate Sodium (Colace) 100 mg DAILY PO ; Start 11/11/17 at 09:00 Metoprolol Tartrate (Lopressor) 1,000 mg BID PO ; Start 11/11/17 at 09:00; Stop 11/11/17 at 09:22; Status DC Morphine Sulfate (Ms Contin) 15 mg BID PO ; Start 11/11/17 at 09:00; Stop at 15:30; Status DC Pantoprazole Sodium (Protonix) 40 mg HS PO Last administered on 11/11/17at 09:06 ; Start 11/11/17 at 21:00 Trazodone HCl (Desyrel) 50 mg HS PO ; Start 11/11/17 at 21:00; Stop 11/11/17 at 21:00; Status DC Atorvastatin Calcium (Lipitor) 40 mg QHS PO ; Start 11/11/17 at 21:00; Stop at 22:00; Status Future Hold Cyanocobalamin (Vitamin B-12) 2,500 mcg DAILY PO Last administered on at 09:40; Start 11/11/17 at 09:00 Fish Oil (Fish Oil) 1,000 mg DAILY PO Last administered on 11/11/17at 09:38; Start 11/11/17 at 09:00 Gabapentin (Neurontin) 400 mg TID PO Last administered on 11/11/17at 09:39; Start 11/11/17 at 09:00 Insulin Human Isoph/Insulin Regular (HumuLIN 70/30) 30 units DAILYWSUP SQ ; Start 11/11/17 at 17:00 Insulin Human Isoph/Insulin Regular (HumuLIN 70/30) 40 units DAILYWBKFT SQ Last administered on 11/11/17at 10:06; Start 11/11/17 at 09:00 Labetalol HCl (Trandate) 200 mg BID PO Last administered on 11/11/17at 09:39; Start 11/11/17 at 09:00 Meloxicam (Mobic) 15 mg DAILY PO ; Start 11/11/17 at 09:00; Stop 11/11/17 at 11: 52; Status DC Non-Formulary Medication (Ubidecarenone (Coenzyme Q10)) 100 mg BID PO ; Start at 09:00; Status UNV Lisinopril (Prinivil) 40 mg DAILY PO ; Start 11/12/17 at 09:00 Active Scripts Active Reported Lisinopril 20 Mg Tablet 2 Tab PO DAILY Lisinopril 40 Mg Tablet 40 Gralise (Gabapentin) 600 Mg Tab.er.24h 1,500 Mg PO DAILY Trazodone Hcl 50 Mg Tablet 50 Mg PO HS Hydrocodone-Apap 5-325 (Hydrocodone Bit/Acetaminophen) 1 Each Tablet 1 Tab PO PRN Q6HRS PRN Morphine Sulfate Er (Morphine Sulfate) 15 Mg Tablet.er 15 Mg PO BID Meloxicam 15 Mg Tablet 15 Mg PO DAILY Colace (Docusate Sodium) 100 Mg Capsule 100 Mg PO DAILY Labetalol Hcl 200 Mg Tablet 200 Mg PO BID Atorvastatin Calcium 80 Mg Tablet 40 Mg PO DAILY Flax Seed Oil 1,300 Mg Softgel (Flaxseed/Omega3,6,9/Fatty Acid) 1 Each Capsule 1 Each PO DAILY Coenzyme Q10 (Ubidecarenone) 100 Mg Tablet 100 Mg PO BID Vitamin D3 (Cholecalciferol (Vitamin D3)) 1,000 Unit Tablet 2 Tab AD DAILY Vitamin B12 (Cyanocobalamin (Vitamin B-12)) 2,500 Mcg Tablet 2,500 Mcg PO DAILY Nitrostat (Nitroglycerin) 0.4 Mg Tab.subl 1 Tab SL UD Pantoprazole Sodium 40 Mg Tablet.dr 1 Tab PO HS Novolin 70-30 100 Unit/Ml Vial (Hum Insulin Nph/Reg Insulin Hm) 100 Unit/1 Ml Vial 30 Unit SQ DAILYWSUP Novolin 70-30 100 Unit/Ml Vial (Hum Insulin Nph/Reg Insulin Hm) 100 Unit/1 Ml Vial 40 Unit SQ DAILY Humalog (Insulin Lispro) 100 Unit/1 Ml Cartridge 1 Unit SQ Clopidogrel (Clopidogrel Bisulfate) 75 Mg Tablet 1 Tab PO DAILY Aspirin 325 Mg Tablet 325 Mg PO BID Allergies Allergies: Allergies Coded Allergies Type Severity Reaction Last Updated Verified Exadsxm-Oef-Fwd Reductase Inhibitor Allergy Intermediate 06/30/15 Yes ROS Review of System The patient denies any associated fevers, chills, headache, ear pain, rhinorrhea , sore throat, stiff neck, productive cough, chest pain, shortness of breath, back or flank pain, abdominal pain, nausea, vomiting, diarrhea, constipation, dysuria, rash, numbness, weakness, tingling, incontinence, difficulty ambulating, or diaphoresis. Physical Exam Physical Exam General: Well developed, well nourished, no acute distress, well appearing HEENT: Pupils equally round and reactive to light, EOMI, no discharge, normal conjunctiva Neck: Supple, no nuchal rigidity, no JVD, trachea midline, no tenderness Cardiac: RRR, no murmurs, no gallops, no rubs Chest/Lungs: CTAB, no wheeze, no rhonchi, no crackles Abdomen: soft, non-distended, no guarding, no peritoneal signs, non-tender Back: No tenderness Extremities: no edema, pulses intact, non-tender,capillary refill <3 sec bilateral upper and lower extremities, Neuro: Alert and oriented x 4, no focal deficits, normal speech Vitals Vitals: Vital Signs Date Time Temp Pulse Resp B/P (MAP) Pulse Ox O2 Delivery O2 Flow Rate FiO2 11/11/17 15:00 97.9 86 18 195/78 (117) 95 Room Air 97.9 Labs Labs Laboratory Tests Test 11/09/17 20:27 11/09/17 21:45 11/10/17 03:00 11/10/17 07:02 Glucose (Fingerstick) 137 mg/dL (70-99) 122 mg/dL (70-99) Urine Collection Type Unknown Urine Color Dk yellow Urine Clarity Clear Urine pH 5.0 Urine Specific [place] 1.025 Urine Protein 30 mg/dL (NEG-TRACE) Urine Glucose (UA) Negative mg/dL (NEG) Urine Ketones (Stick) Trace mg/dL (NEG) Urine Blood Negative (NEG) Urine Nitrite Negative (NEG) Urine Bilirubin Moderate (NEG) Urine Urobilinogen Dipstick 0.2 mg/dL (0.2 mg/dL) Urine Leukocyte Esterase Negative (NEG) Urine RBC Rare /HPF (0-2) Urine WBC Rare /HPF (0-4) Urine Squamous Epithelial Cells None /LPF Urine Bacteria 0 /HPF (0-FEW) Urine Hyaline Casts Many /HPF Urine Mucus Marked /LPF Urine Opiates Screen Pos (NEG) Urine Methadone Screen Neg (NEG) Urine Barbiturates Neg (NEG) Urine Phencyclidine Screen Neg (NEG) Urine Amphetamine/Methamphetamine Neg (NEG) Urine Benzodiazepines Screen Neg (NEG) Urine Cocaine Screen Neg (NEG) Urine Cannabinoids Screen Neg (NEG) Urine Ethyl Alcohol Neg (NEG) White Blood Count 14.5 x10^3/uL (4.0-11.0) Red Blood Count 4.16 x10^6/uL (4.30-5.70) Hemoglobin 11.7 g/dL (13.0-17.5) Hematocrit 35.9 % (39.0-53.0) Mean Corpuscular Volume 86 fL (79-100) Mean Corpuscular Hemoglobin 28 pg (25-35) Mean Corpuscular Hemoglobin Concent 33 g/dL (31-37) Red Cell Distribution Width 14.2 % (11.5-14.5) Platelet Count 240 x10^3/uL (140-400) Neutrophils (%) (Auto) 77 % (31-73) Lymphocytes (%) (Auto) 13 % (24-48) Monocytes (%) (Auto) 9 % (0-9) Eosinophils (%) (Auto) 1 % (0-3) Basophils (%) (Auto) 0 % (0-3) Neutrophils # (Auto) 11.1 x10^3uL (1.8-7.7) Lymphocytes # (Auto) 1.8 x10^3/uL (1.0-4.8) Monocytes # (Auto) 1.3 x10^3/uL (0.0-1.1) Eosinophils # (Auto) 0.2 x10^3/uL (0.0-0.7) Basophils # (Auto) 0.0 x10^3/uL (0.0-0.2) Sodium Level 132 mmol/L (136-145) Potassium Level 4.7 mmol/L (3.5-5.1) Chloride Level 97 mmol/L (98-107) Carbon Dioxide Level 22 mmol/L (21-32) Anion Gap 13 (6-14) Blood Urea Nitrogen 84 mg/dL (8-26) Creatinine 5.6 mg/dL (0.7-1.3) Estimated GFR (Cockcroft-Gault) 10.2 BUN/Creatinine Ratio 15 (6-20) Glucose Level 106 mg/dL (70-99) Calcium Level 8.6 mg/dL (8.5-10.1) Total Bilirubin 0.4 mg/dL (0.2-1.0) Aspartate Amino Transf (AST/SGOT) 31 U/L (15-37) Alanine Aminotransferase (ALT/SGPT) 36 U/L (16-63) Alkaline Phosphatase 87 U/L (46-116) Total Protein 7.0 g/dL (6.4-8.2) Albumin 4.0 g/dL (3.4-5.0) Albumin/Globulin Ratio 1.3 (1.0-1.7) Test 11/10/17 10:52 11/10/17 17:11 11/10/17 20:54 11/11/17 05:00 Glucose (Fingerstick) 232 mg/dL (70-99) 247 mg/dL (70-99) 228 mg/dL (70-99) Sodium Level 133 mmol/L (136-145) Potassium Level 4.9 mmol/L (3.5-5.1) Chloride Level 102 mmol/L (98-107) Carbon Dioxide Level 23 mmol/L (21-32) Anion Gap 8 (6-14) Blood Urea Nitrogen 53 mg/dL (8-26) Creatinine 1.4 mg/dL (0.7-1.3) Estimated GFR (Cockcroft-Gault) 50.5 Glucose Level 227 mg/dL (70-99) Calcium Level 9.1 mg/dL (8.5-10.1) Test 11/11/17 07:33 11/11/17 10:40 11/11/17 16:48 Glucose (Fingerstick) 214 mg/dL (70-99) 227 mg/dL (70-99) 150 mg/dL (70-99) Laboratory Tests Test 11/10/17 20:54 11/11/17 05:00 11/11/17 07:33 11/11/17 10:40 Glucose (Fingerstick) 228 mg/dL (70-99) 214 mg/dL (70-99) 227 mg/dL (70-99) Sodium Level 133 mmol/L (136-145) Potassium Level 4.9 mmol/L (3.5-5.1) Chloride Level 102 mmol/L (98-107) Carbon Dioxide Level 23 mmol/L (21-32) Anion Gap 8 (6-14) Blood Urea Nitrogen 53 mg/dL (8-26) Creatinine 1.4 mg/dL (0.7-1.3) Estimated GFR (Cockcroft-Gault) 50.5 Glucose Level 227 mg/dL (70-99) Calcium Level 9.1 mg/dL (8.5-10.1) Test 11/11/17 16:48 Glucose (Fingerstick) 150 mg/dL (70-99) APRIL CLOUD MD Nov 11, 2017 17:38
[2017-11-11 19:00] VITALS: BP 194/83
[2017-11-11] MEDS: traZODone 50 MG TABLET. PO SCH (20:12)
[2017-11-11] MEDS ORDERED: ATORVASTATIN CALCIUM 40 MG TABLET. PO SCH (21:00)
[2017-11-11] MEDS ORDERED: traZODone 50 MG TABLET. PO SCH (21:00)
[2017-11-11] MEDS ORDERED: PANTOPRAZOLE 40 MG TABLET.DR. PO SCH (21:00)
[2017-11-11 23:00] VITALS: BP 133/67
[2017-11-12 03:00] VITALS: BP 165/95
[2017-11-12 05:59] LABS: ALBUMIN 3.4 g/dL (3.4-5.0); CREATININE 0.9 mg/dL (0.7-1.3); GFR 84.2; PHOSPHORUS 1.9 mg/dL (2.6-4.7)
[2017-11-12 06:00] LABS: CHOLESTEROL/HDL RATIO 3.1
[2017-11-12] MEDS: HEPARIN PF for SUB-Q USE 5,000 UNIT/0.5 ML VIAL. SQ SCH ×2 (06:14→12:12)
[2017-11-12] MEDS: IV NORMAL SALINE 1000ML BAG 1,000 ML IV SCH ×2 (06:14→16:15)
[2017-11-12 07:00] VITALS: BP 162/84
[2017-11-12] MEDS: INSULIN LISPRO 300 UNITS/3 ML INSULN.PEN. SQ SCH ×3 (08:00→17:00)
[2017-11-12] MEDS: DOCUSATE SODIUM 100 MG CAPSULE. PO SCH (08:12)
[2017-11-12] MEDS: GABAPENTIN 400 MG CAPSULE. PO SCH ×2 (08:12→12:11)
[2017-11-12] MEDS: CLOPIDOGREL BISULFATE 75 MG TABLET PO SCH (08:12)
[2017-11-12] MEDS: CYANOCOBALAMIN (VITAMIN B-12) 1,000 MCG TABLET. PO SCH (08:12)
[2017-11-12] MEDS: OMEGA-3 FATTY ACIDS/FISH OIL 1,000 MG CAPSULE. PO SCH (08:12)
[2017-11-12] MEDS: ASPIRIN 325 MG TABLET PO SCH (08:12)
[2017-11-12] MEDS: MORPHINE ER 15 MG TABLET.ER PO SCH (08:13)
[2017-11-12] MEDS: CHOLECALCIFEROL (VITAMIN D3) 1,000 UNIT TABLET PO SCH (08:13)
[2017-11-12] MEDS: LABETALOL HCL 200 MG TABLET PO SCH (08:15)
[2017-11-12] MEDS: INSULIN NPH/REG INSULIN 70/30 300 UNITS/3 ML INSULN.PEN. SQ SCH ×2 (08:21→17:54)
[2017-11-12] MEDS ORDERED: LISINOPRIL 20 MG TABLET PO SCH (09:00)
--- NOTE | 2017-11-12 10:19 | PDOC ---
PROGRESS NOTES Chief Complaint Chief Complaint renal failure, heat exposure History of Present Illness History of Present Illness Assessment/Plan Assessment/Plan encephalopathy, was confused YESTERDAY AM , NOW OK generalize weakness with JUSTICE JUSTICE, vasomotor vs ATN metabolic acidosis dm2 htn uncontrolled H/O CAD WITH pci 4ys ago stable systolic chf ef was 40% plan: NEUROLOGY CONSULT MRI HEAD renal consult us renal ssi labs daily DVT ppx PTOT Vitals Vitals Vital Signs Date Time Temp Pulse Resp B/P (MAP) Pulse Ox O2 Delivery O2 Flow Rate FiO2 11/12/17 08:15 69 165/95 11/12/17 08:00 Room Air 11/12/17 07:00 97.7 18 97 97.7 Physical Exam Physical Exam GEN.: No apparent distress. Alert and oriented. HEENT: Head is normocephalic, atraumatic NECK: Supple. LUNGS: Clear to auscultation. HEART: RRR, S1, S2 present. Peripheral pulses intact ABDOMEN: Soft, nontender. Positive bowel sounds. EXTREMITIES: Without any cyanosis. NEUROLOGIC: Normal speech, normal tone PSYCHIATRIC: Normal affect, normal mood. SKIN: No ulcerations General: Alert, Oriented X3, Cooperative, No acute distress Heart: Regular rate, Normal S1, Normal S2, No murmurs Lungs: Clear Abdomen: Normal bowel sounds, Soft Extremities: No clubbing, No cyanosis Skin: No breakdown Labs LABS CLINICAL HISTORY: RENAL FAILURE COMPARISON: None available. TECHNIQUE: Ultrasound examination of the bilateral kidneys and urinary bladder was performed. FINDINGS: The right kidney measures 11.9 cm in bipolar length. The renal cortex is normal in thickness. Renal echogenicity is normal. There is no evidence for hydronephrosis, shadowing renal calculus or focal abnormality . The left kidney measures 12.9 cm in bipolar length. The renal cortex is normal in thickness. Renal echogenicity is normal. There is no evidence for hydronephrosis, shadowing renal calculus or focal abnormality. Images of the partially filled urinary bladder are unremarkable. Ureteral jets are not definitively visualized. Bladder volume 288 mL. IMPRESSION: 1. Unremarkable sonographic survey of the kidneys. Electronically signed by: Jose Miller MD (11/10/2017 8:41 AM) [facility] Laboratory Tests Test 11/11/17 10:40 11/11/17 16:48 11/11/17 20:12 11/12/17 04:25 Glucose (Fingerstick) 227 mg/dL (70-99) 150 mg/dL (70-99) 167 mg/dL (70-99) Sodium Level 137 mmol/L (136-145) Potassium Level 4.0 mmol/L (3.5-5.1) Chloride Level 105 mmol/L (98-107) Carbon Dioxide Level 25 mmol/L (21-32) Anion Gap 7 (6-14) Blood Urea Nitrogen 23 mg/dL (8-26) Creatinine 0.9 mg/dL (0.7-1.3) Estimated GFR (Cockcroft-Gault) 84.2 Glucose Level 127 mg/dL (70-99) Calcium Level 9.0 mg/dL (8.5-10.1) Phosphorus Level 1.9 mg/dL (2.6-4.7) Albumin 3.4 g/dL (3.4-5.0) Triglycerides Level 82 mg/dL (0-150) Cholesterol Level 122 mg/dL (0-200) LDL Cholesterol, Calculated 66 mg/dL (0-100) VLDL Cholesterol, Calculated 16 mg/dL (0-40) Non-HDL Cholesterol Calculated 82 mg/dL (0-129) HDL Cholesterol 40 mg/dL (40-60) Cholesterol/HDL Ratio 3.1 Test 11/12/17 07:27 Glucose (Fingerstick) 144 mg/dL (70-99) Assessment and Plan Assessmemt and Plan Problems Medical Problems: (1) Acute renal failure Status: Acute Comment Review of Relevant I have reviewed the following items kelsie (where applicable) has been applied. Labs Laboratory Tests Test 11/10/17 10:52 11/10/17 17:11 11/10/17 20:54 11/11/17 05:00 Glucose (Fingerstick) 232 mg/dL (70-99) 247 mg/dL (70-99) 228 mg/dL (70-99) Sodium Level 133 mmol/L (136-145) Potassium Level 4.9 mmol/L (3.5-5.1) Chloride Level 102 mmol/L (98-107) Carbon Dioxide Level 23 mmol/L (21-32) Anion Gap 8 (6-14) Blood Urea Nitrogen 53 mg/dL (8-26) Creatinine 1.4 mg/dL (0.7-1.3) Estimated GFR (Cockcroft-Gault) 50.5 Glucose Level 227 mg/dL (70-99) Calcium Level 9.1 mg/dL (8.5-10.1) Test 11/11/17 05:10 11/11/17 07:33 11/11/17 10:40 11/11/17 16:48 Vitamin B12 Level 554 pg/mL (247-911) Glucose (Fingerstick) 214 mg/dL (70-99) 227 mg/dL (70-99) 150 mg/dL (70-99) Test 11/11/17 20:12 11/12/17 04:25 11/12/17 07:27 Glucose (Fingerstick) 167 mg/dL (70-99) 144 mg/dL (70-99) Sodium Level 137 mmol/L (136-145) Potassium Level 4.0 mmol/L (3.5-5.1) Chloride Level 105 mmol/L (98-107) Carbon Dioxide Level 25 mmol/L (21-32) Anion Gap 7 (6-14) Blood Urea Nitrogen 23 mg/dL (8-26) Creatinine 0.9 mg/dL (0.7-1.3) Estimated GFR (Cockcroft-Gault) 84.2 Glucose Level 127 mg/dL (70-99) Calcium Level 9.0 mg/dL (8.5-10.1) Phosphorus Level 1.9 mg/dL (2.6-4.7) Albumin 3.4 g/dL (3.4-5.0) Triglycerides Level 82 mg/dL (0-150) Cholesterol Level 122 mg/dL (0-200) LDL Cholesterol, Calculated 66 mg/dL (0-100) VLDL Cholesterol, Calculated 16 mg/dL (0-40) Non-HDL Cholesterol Calculated 82 mg/dL (0-129) HDL Cholesterol 40 mg/dL (40-60) Cholesterol/HDL Ratio 3.1 Laboratory Tests Test 11/11/17 10:40 11/11/17 16:48 11/11/17 20:12 11/12/17 04:25 Glucose (Fingerstick) 227 mg/dL (70-99) 150 mg/dL (70-99) 167 mg/dL (70-99) Sodium Level 137 mmol/L (136-145) Potassium Level 4.0 mmol/L (3.5-5.1) Chloride Level 105 mmol/L (98-107) Carbon Dioxide Level 25 mmol/L (21-32) Anion Gap 7 (6-14) Blood Urea Nitrogen 23 mg/dL (8-26) Creatinine 0.9 mg/dL (0.7-1.3) Estimated GFR (Cockcroft-Gault) 84.2 Glucose Level 127 mg/dL (70-99) Calcium Level 9.0 mg/dL (8.5-10.1) Phosphorus Level 1.9 mg/dL (2.6-4.7) Albumin 3.4 g/dL (3.4-5.0) Triglycerides Level 82 mg/dL (0-150) Cholesterol Level 122 mg/dL (0-200) LDL Cholesterol, Calculated 66 mg/dL (0-100) VLDL Cholesterol, Calculated 16 mg/dL (0-40) Non-HDL Cholesterol Calculated 82 mg/dL (0-129) HDL Cholesterol 40 mg/dL (40-60) Cholesterol/HDL Ratio 3.1 Test 11/12/17 07:27 Glucose (Fingerstick) 144 mg/dL (70-99) Medications Current Medications Sodium Chloride 1,000 ml @ 1,000 mls/hr Q1H IV Last administered on 11/09/17at 16:20; Start 11/09/17 at 15:23; Stop 11/09/17 at 16:22; Status DC Sodium Chloride 1,000 ml @ 1,000 mls/hr 1X ONCE IV Last administered on at 16:20; Start 11/09/17 at 16:30; Stop 11/09/17 at 17:29; Status DC Sodium Chloride 1,000 ml @ 100 mls/hr 1X ONCE IV Last administered on at 19:50; Start 11/09/17 at 16:45; Stop 11/10/17 at 02:44; Status DC Acetaminophen (Tylenol) 650 mg PRN Q6HRS PRN PO FEVER; Start 11/09/17 at 18:15 Ondansetron HCl (Zofran) 4 mg PRN Q6HRS PRN IV NAUSEA/VOMITING; Start 11/09/17 at 18:15 Morphine Sulfate (Morphine Sulfate) 2 mg PRN Q2HR PRN IV MODERATE TO SEVERE PAIN; Start 11/09/17 at 18:15 Tramadol HCl (Ultram) 50 mg PRN Q6HRS PRN PO MILD TO MODERATE PAIN; Start 11/09 at 18:15; Stop 11/11/17 at 11:52; Status DC Hydralazine HCl (Apresoline Inj) 10 mg PRN Q4HRS PRN IVP ELEVATED BP, SEE COMMENTS; Start 11/09/17 at 18:15 Docusate Sodium (Colace) 100 mg PRN DAILY PRN PO CONSTIPATION; Start 11/09/17 at 18:15 Sodium Chloride 1,000 ml @ 100 mls/hr Q10H IV Last administered on 11/11/17at 20:13; Start 11/09/17 at 18:15 Insulin Human Lispro (HumaLOG) 0-9 UNITS TIDWMEALS SQ Last administered on 11/11at 13:16; Start 11/10/17 at 08:00 Dextrose (Dextrose 50%-Water Syringe) 12.5 gm PRN Q15MIN PRN IV SEE COMMENTS; Start 11/09/17 at 18:15 Heparin Sodium (Porcine) (Heparin Sq) 5,000 unit Q8HRS SQ Last administered on 11/12/17at 06:14; Start 11/09/17 at 19:00 Trazodone HCl (Desyrel) 50 mg QHS PO Last administered on 11/11/17at 20:12; Start 11/09/17 at 21:15 Morphine Sulfate (Ms Contin) 15 mg BID PO Last administered on 11/12/17at 08:13 ; Start 11/09/17 at 21:15 Aspirin (Soni Aspirin) 325 mg BID PO Last administered on 11/12/17at 08:12; Start 11/11/17 at 09:00 Vitamin D (Vitamin D3) 2,000 unit DAILY PO Last administered on 11/12/17at 08:13 ; Start 11/11/17 at 09:00 Clopidogrel Bisulfate (Plavix) 75 mg DAILY PO Last administered on 11/12/17at 08 :12; Start 11/11/17 at 09:00 Docusate Sodium (Colace) 100 mg DAILY PO ; Start 11/11/17 at 09:00 Metoprolol Tartrate (Lopressor) 1,000 mg BID PO ; Start 11/11/17 at 09:00; Stop 11/11/17 at 09:22; Status DC Morphine Sulfate (Ms Contin) 15 mg BID PO ; Start 11/11/17 at 09:00; Stop at 15:30; Status DC Pantoprazole Sodium (Protonix) 40 mg HS PO Last administered on 11/11/17at 09:06 ; Start 11/11/17 at 21:00 Trazodone HCl (Desyrel) 50 mg HS PO ; Start 11/11/17 at 21:00; Stop 11/11/17 at 21:00; Status DC Atorvastatin Calcium (Lipitor) 40 mg QHS PO Last administered on 11/11/17at 20: 12; Start 11/11/17 at 21:00; Stop 11/11/17 at 22:00; Status DC Cyanocobalamin (Vitamin B-12) 2,500 mcg DAILY PO Last administered on at 08:12; Start 11/11/17 at 09:00 Fish Oil (Fish Oil) 1,000 mg DAILY PO Last administered on 11/12/17at 08:12; Start 11/11/17 at 09:00 Gabapentin (Neurontin) 400 mg TID PO Last administered on 11/12/17at 08:12; Start 11/11/17 at 09:00 Insulin Human Isoph/Insulin Regular (HumuLIN 70/30) 30 units DAILYWSUP SQ Last administered on 11/11/17at 17:24; Start 11/11/17 at 17:00 Insulin Human Isoph/Insulin Regular (HumuLIN 70/30) 40 units DAILYWBKFT SQ Last administered on 11/12/17at 08:21; Start 11/11/17 at 09:00 Labetalol HCl (Trandate) 200 mg BID PO Last administered on 11/12/17at 08:15; Start 11/11/17 at 09:00 Meloxicam (Mobic) 15 mg DAILY PO ; Start 11/11/17 at 09:00; Stop 11/11/17 at 11: 52; Status DC Non-Formulary Medication (Ubidecarenone (Coenzyme Q10)) 100 mg BID PO ; Start at 09:00; Status UNV Lisinopril (Prinivil) 40 mg DAILY PO Last administered on 11/12/17at 08:15; Start 11/12/17 at 09:00 Active Scripts Active Reported Lisinopril 20 Mg Tablet 2 Tab PO DAILY Lisinopril 40 Mg Tablet 40 Gralise (Gabapentin) 600 Mg Tab.er.24h 1,500 Mg PO DAILY Trazodone Hcl 50 Mg Tablet 50 Mg PO HS Hydrocodone-Apap 5-325 (Hydrocodone Bit/Acetaminophen) 1 Each Tablet 1 Tab PO PRN Q6HRS PRN Morphine Sulfate Er (Morphine Sulfate) 15 Mg Tablet.er 15 Mg PO BID Meloxicam 15 Mg Tablet 15 Mg PO DAILY Colace (Docusate Sodium) 100 Mg Capsule 100 Mg PO DAILY Labetalol Hcl 200 Mg Tablet 200 Mg PO BID Atorvastatin Calcium 80 Mg Tablet 40 Mg PO DAILY Flax Seed Oil 1,300 Mg Softgel (Flaxseed/Omega3,6,9/Fatty Acid) 1 Each Capsule 1 Each PO DAILY Coenzyme Q10 (Ubidecarenone) 100 Mg Tablet 100 Mg PO BID Vitamin D3 (Cholecalciferol (Vitamin D3)) 1,000 Unit Tablet 2 Tab AD DAILY Vitamin B12 (Cyanocobalamin (Vitamin B-12)) 2,500 Mcg Tablet 2,500 Mcg PO DAILY Nitrostat (Nitroglycerin) 0.4 Mg Tab.subl 1 Tab SL UD Pantoprazole Sodium 40 Mg Tablet.dr 1 Tab PO HS Novolin 70-30 100 Unit/Ml Vial (Hum Insulin Nph/Reg Insulin Hm) 100 Unit/1 Ml Vial 30 Unit SQ DAILYWSUP Novolin 70-30 100 Unit/Ml Vial (Hum Insulin Nph/Reg Insulin Hm) 100 Unit/1 Ml Vial 40 Unit SQ DAILY Humalog (Insulin Lispro) 100 Unit/1 Ml Cartridge 1 Unit SQ Clopidogrel (Clopidogrel Bisulfate) 75 Mg Tablet 1 Tab PO DAILY Aspirin 325 Mg Tablet 325 Mg PO BID Vitals/I & O Vital Sign - Last 24 Hours 11/11/17 11/11/17 11/11/17 11/11/17 11:00 15:00 19:00 20:00 Temp 98.1 97.9 98.1 98.1 97.9 98.1 Pulse 97 86 83 Resp 18 B/P (MAP) 163/81 (108) 195/78 (117) 194/83 (120) Pulse Ox 97 95 96 O2 Delivery Room Air Room Air Room Air Room Air 11/11/17 11/11/17 11/12/17 11/12/17 20:13 23:00 03:00 07:00 Temp 98.1 98.1 97.7 98.1 98.1 97.7 Pulse 86 71 69 76 Resp 18 18 B/P (MAP) 195/78 133/67 (89) 165/95 (118) 162/84 (110) Pulse Ox 96 74 97 O2 Delivery Room Air Room Air Room Air 11/12/17 11/12/17 11/12/17 08:00 08:15 08:15 Pulse 69 69 B/P (MAP) 165/95 165/95 O2 Delivery Room Air Intake and Output 11/11/17 11/11/17 11/12/17 15:00 23:00 07:00 Intake Total 300 ml 1200 ml Balance 300 ml 1200 ml EMIGDIO HUNTER MD Nov 12, 2017 10:19
[2017-11-12 11:00] VITALS: BP 162/84
--- NOTE | 2017-11-12 12:48 | EEG ---
DATE OF SERVICE: 11/12/2017 EEG NUMBER: [id number] OBJECTIVE: This is a 67-year-old male patient with history of intermittent confusional episodes and abnormal movements. EEG was requested to help rule out seizure. METHODS: Twenty electrodes were applied according to the international 10-20 electrode placement system. EKG monitoring, hyperventilation, intermittent photic stimulation, monopolar and bipolar montages are routinely utilized. The record was obtained on a digital system with video monitoring. MEDICATIONS: Chronic use of narcotics. FINDINGS: 1. Background: The patient was recorded in the awake, drowsy, and sleep states. The overall background amplitude is 5-10 microvolts. A posterior dominant rhythm of 8 Hz is observed with superimposed faster activity in the beta frequency. 2. Abnormalities: No specific epileptiform discharge or electrographic seizure is seen. No diffuse slowing. 3. Activation: Hyperventilation was performed with good efforts and normal response. Intermittent photic stimulation was performed with photic driving. No specific epileptiform discharge or electrographic seizure induced by hyperventilation or intermittent photic stimulation. IMPRESSION: This EEG is a borderline study for the awake, drowsy, and sleep states. No focal, lateralizing, specific epileptiform discharge or electrographic seizure is seen. A single channel EKG recording showed widening of QRS and biphasic T-waves. Suggest discussion with primary care doctor or hand tube winder. APRIL CLOUD MD DR: JILLIAN/mariella JOB#: [id number] / [id number] CORTES
--- NOTE | 2017-11-12 14:39 | PDOC ---
PROGRESS NOTES Assessment Assessment Cognitive impairment. Intermittent confusional episodes. Memory decline. Intermittent tremor like abnormal movements. ALLAN? Renal failure. DM. HTN. CAD. Chronic narcotics use. Obesity. Widening of ORS on 1 channel of EKG monitoring on EEG. RECOMMENDATIONS/PLAN: Brain MRI w/o contrast. (No contrast due to renal failure.) Treat medical diseases. Please consult Cardiology. Sleep study as outpatient. Dementia evaluation as outpatient base. Discussed with his in all detail at bedside on 11/11. HCT: Negative. EEG: No epileptiform discharges. HISTORY OF THE PRESENT ILLNESS: 67-y-old male patient with above medical diseases has intermittent symptoms in the past months or a year as confusional episodes, forgetfulness, unable to continue normal conversations sometimes, or word finding problems, but other times are completely normal. He stated he has chronic back pain and knee pain and he has been taken Narcotics on a daily basis for years. No focalized sensory or motor deficits. His ctr. was high. PAST MEDICAL HISTORY Cardiovascular: CAD (with stent to RCA (left to right collaterals & OM - 2016) , HTN, IA, Hyperlipidemia GI: Constipation, GERD Musculoskeletal: Osteoarthritis Endocrine: Diabetes PAST SURGICAL HISTORY No pertinent history FAMILY HISTORY Diabetes, Heart Disease, Hypertension ALLERGIES Coded Allergies: Ifxbyiv-Vlb-Qhd Reductase Inhibitor (Verified Allergy, Intermediate, 06/30/15) Worsens myalgia SOCIAL HISTORY Smoke: No ALCOHOL: none Drugs: None Lives: with Family MEDICATIONS: Refer to MAR REVIEW OF SYSTEMS: Constitutional: Obesity. Head: No traumatic brain or head injury. Skin: No edema, or rash. Ear: No infection. Eyes: No vision loss or color blindness. Nose: No bleeding or purulent discharges. Hearing: No hearing decrease. Neck: No injury. Cardiac: HTN. Pulmonary: No OPD. GI: No GI ulcer, GI bleeding. Urinary/genital: No dysuria, incontinence, urinary retention. Endocrinologic: Diabetes Mellitus, obesity. Skeletomuscular: No muscular atrophy, deformity. Neurological: see HP. Psychiatric: Denies drug use/abuse. Otherwise, not [id number] review of systems. PHYSICAL EXAMINATION: General appearance is in no acute distress. HEENT: Normocephalic and nontraumatic. Eyes, nose, ears, and throat are unremarkable. Neck is supple. No lymphadenopathy. No crepitus. Cardiovascular: S1, S2, regular rate and rhythm. Pulmonary: Clear to auscultation bilaterally. Abdomen: Bowel sounds are positive. Abdomen is soft, nontender, and nondistended. Extremities: No rash, lesions, or edema. No restriction of range of motion NEUROLOGICAL EXAMINATION: Awake. Oriented to time, place and person. PERRL. EOMI. CN: no focal findings. Muscle tone: within normal. Muscle strength: 5 DTR: 2 Plantar reflex: Flexor response bilaterally Gait: Normal. Sensory exam: no abnormal findings. No cerebellar signs elicited. F-T-N test accurate. Objective Objective Vital Signs Date Time Temp Pulse Resp B/P (MAP) Pulse Ox O2 Delivery O2 Flow Rate FiO2 11/12/17 11:00 97.7 76 18 162/84 (110) 97 Room Air 97.7 Intake and Output 11/12/17 07:00 Intake Total 1500 ml Balance 1500 ml Intake Oral 300 ml Other 1200 ml # Voids 6 Vitals Signs Vitals VS - Last 72 Hours, by Label Date Time Temp Pulse Resp B/P (MAP) Pulse Ox O2 Delivery O2 Flow Rate FiO2 11/12/17 11:00 97.7 76 18 162/84 (110) 97 Room Air 97.7 11/12/17 08:15 69 165/95 11/12/17 08:15 69 165/95 11/12/17 08:00 Room Air 11/12/17 07:00 97.7 76 18 162/84 (110) 97 Room Air 97.7 11/12/17 03:00 98.1 69 18 165/95 (118) 74 Room Air 98.1 11/11/17 23:00 98.1 71 18 133/67 (89) 96 Room Air 98.1 11/11/17 20:13 86 195/78 11/11/17 20:00 Room Air 11/11/17 19:00 98.1 83 18 194/83 (120) 96 Room Air 98.1 11/11/17 15:00 97.9 86 18 195/78 (117) 95 Room Air 97.9 11/11/17 11:00 98.1 97 18 163/81 (108) 97 Room Air 98.1 11/11/17 09:39 96 188/87 11/11/17 08:00 Room Air 11/11/17 07:00 97.9 96 18 188/87 (120) 95 Room Air 97.9 Laboratory Laboratory Laboratory Tests Test 11/11/17 16:48 11/11/17 20:12 11/12/17 04:25 11/12/17 07:27 Glucose (Fingerstick) 150 mg/dL (70-99) 167 mg/dL (70-99) 144 mg/dL (70-99) Sodium Level 137 mmol/L (136-145) Potassium Level 4.0 mmol/L (3.5-5.1) Chloride Level 105 mmol/L (98-107) Carbon Dioxide Level 25 mmol/L (21-32) Anion Gap 7 (6-14) Blood Urea Nitrogen 23 mg/dL (8-26) Creatinine 0.9 mg/dL (0.7-1.3) Estimated GFR (Cockcroft-Gault) 84.2 Glucose Level 127 mg/dL (70-99) Calcium Level 9.0 mg/dL (8.5-10.1) Phosphorus Level 1.9 mg/dL (2.6-4.7) Albumin 3.4 g/dL (3.4-5.0) Triglycerides Level 82 mg/dL (0-150) Cholesterol Level 122 mg/dL (0-200) LDL Cholesterol, Calculated 66 mg/dL (0-100) VLDL Cholesterol, Calculated 16 mg/dL (0-40) Non-HDL Cholesterol Calculated 82 mg/dL (0-129) HDL Cholesterol 40 mg/dL (40-60) Cholesterol/HDL Ratio 3.1 Test 11/12/17 11:24 Glucose (Fingerstick) 198 mg/dL (70-99) Medication Medications Current Medications Atorvastatin Calcium (Lipitor) 40 mg QHS PO Last administered on 11/11/17at 20: 12; Start 11/11/17 at 21:00; Stop 11/11/17 at 22:00; Status DC Insulin Human Isoph/Insulin Regular (HumuLIN 70/30) 30 units DAILYWSUP SQ Last administered on 11/11/17at 17:24; Start 11/11/17 at 17:00 Lisinopril (Prinivil) 40 mg DAILY PO Last administered on 11/12/17at 08:15; Start 11/12/17 at 09:00 Pantoprazole Sodium (Protonix) 40 mg HS PO Last administered on 11/11/17at 09:06 ; Start 11/11/17 at 21:00 Trazodone HCl (Desyrel) 50 mg HS PO ; Start 11/11/17 at 21:00; Stop 11/11/17 at 21:00; Status DC Comment Review of Relevant I have reviewed the following items klesie (where applicable) has been applied. APRIL CLOUD MD Nov 12, 2017 14:39
[2017-11-12 15:00] VITALS: BP 149/63
--- NOTE | 2017-11-12 15:48 | RAD ---
MRI of the brain without contrast 11/12/2017 Clinical History: Confusional elements and abnormal movements. Technique: Unenhanced T1-weighted sagittal and axial, T2-weighted axial and coronal and FLAIR, gradient echo and diffusion-weighted axial images of the brain were obtained. Findings: Comparison is made to the patient's CT scan of the head dated 11/09/2017. Some of the images are degraded by patient motion. There is generalized parenchymal atrophy. Patchy and a few small scattered areas of increased signal intensity are seen within the periventricular and subcortical white matter of both cerebral hemispheres on the FLAIR and T2-weighted images consistent with areas of very mild small vessel ischemic disease. Calcifications are seen within the left cerebellar hemisphere, unchanged. No acute parenchymal abnormality is seen. No extra-axial fluid collection is seen. There is no MRI evidence of acute ischemia/infarction. Mild to moderate mucosal thickening is seen scattered throughout the paranasal sinuses. Normal flow voids are seen within the major vascular structures surrounding the brain parenchyma. Impression: No acute parenchymal abnormality is seen. Electronically signed by: Oz Raygoza MD (11/12/2017 3:44 PM) [facility]
--- NOTE | 2017-11-13 09:59 | PDOC3 ---
Discharge Summary Date of Admission: Nov 09, 2017 Date of Discharge: Nov 12, 2017 Follow-Up: 3-5 days Admitting Diagnosis comment: DISCHARGE DIAGNOSIS Chief Complaint renal failure, heat exposure History of Present Illness History of Present Illness Assessment/Plan Assessment/Plan encephalopathy, was confused YESTERDAY AM , NOW OK generalize weakness with JUSTICE JUSTICE, vasomotor vs ATN metabolic acidosis dm2 htn uncontrolled H/O CAD WITH pci 4ys ago stable systolic chf ef was 40% plan: NEUROLOGY CONSULT MRI HEAD renal consult us renal ssi labs daily DVT ppx PTOT Vitals Vitals Vital Signs Date Time Temp Pulse Resp B/P (MAP) Pulse Ox O2 Delivery O2 Flow Rate FiO2 11/12/17 08:15 69 165/95 11/12/17 08:00 Room Air 11/12/17 07:00 97.7 18 97 97.7 Physical Exam Physical Exam GEN.: No apparent distress. Alert and oriented. HEENT: Head is normocephalic, atraumatic NECK: Supple. LUNGS: Clear to auscultation. HEART: RRR, S1, S2 present. Peripheral pulses intact ABDOMEN: Soft, nontender. Positive bowel sounds. EXTREMITIES: Without any cyanosis. NEUROLOGIC: Normal speech, normal tone PSYCHIATRIC: Normal affect, normal mood. SKIN: No ulcerations General: Alert, Oriented X3, Cooperative, No acute distress Heart: Regular rate, Normal S1, Normal S2, No murmurs Lungs: Clear Abdomen: Normal bowel sounds, Soft Extremities: No clubbing, No cyanosis Skin: No breakdown Labs LABS CLINICAL HISTORY: RENAL FAILURE COMPARISON: None available. TECHNIQUE: Ultrasound examination of the bilateral kidneys and urinary bladder was performed. FINDINGS: The right kidney measures 11.9 cm in bipolar length. The renal cortex is normal in thickness. Renal echogenicity is normal. There is no evidence for hydronephrosis, shadowing renal calculus or focal abnormality . The left kidney measures 12.9 cm in bipolar length. The renal cortex is normal in thickness. Renal echogenicity is normal. There is no evidence for hydronephrosis, shadowing renal calculus or focal abnormality. Images of the partially filled urinary bladder are unremarkable. Ureteral jets are not definitively visualized. Bladder volume 288 mL. IMPRESSION: 1. Unremarkable sonographic survey of the kidneys. Electronically signed by: Jose Miller MD (11/10/2017 8:41 AM) [facility] FINAL DIAGNOSIS Problems Medical Problems: (1) Acute renal failure Status: Acute Brief Hospital Course Mr. Edge is a 67 old [sex] who presented with [ ARF ] CONDITION AT DISCHARGE: Improved Discharge Medications Current Medications Sodium Chloride 1,000 ml @ 1,000 mls/hr Q1H IV Last administered on 11/09/17at 16:20; Start 11/09/17 at 15:23; Stop 11/09/17 at 16:22; Status DC Sodium Chloride 1,000 ml @ 1,000 mls/hr 1X ONCE IV Last administered on at 16:20; Start 11/09/17 at 16:30; Stop 11/09/17 at 17:29; Status DC Sodium Chloride 1,000 ml @ 100 mls/hr 1X ONCE IV Last administered on at 19:50; Start 11/09/17 at 16:45; Stop 11/10/17 at 02:44; Status DC Acetaminophen (Tylenol) 650 mg PRN Q6HRS PRN PO FEVER; Start 11/09/17 at 18:15 ; Stop 11/12/17 at 18:50; Status DC Ondansetron HCl (Zofran) 4 mg PRN Q6HRS PRN IV NAUSEA/VOMITING; Start 11/09/17 at 18:15; Stop 11/12/17 at 18:50; Status DC Morphine Sulfate (Morphine Sulfate) 2 mg PRN Q2HR PRN IV MODERATE TO SEVERE PAIN; Start 11/09/17 at 18:15; Stop 11/12/17 at 10:21; Status DC Tramadol HCl (Ultram) 50 mg PRN Q6HRS PRN PO MILD TO MODERATE PAIN; Start 11/09 at 18:15; Stop 11/11/17 at 11:52; Status DC Hydralazine HCl (Apresoline Inj) 10 mg PRN Q4HRS PRN IVP ELEVATED BP, SEE COMMENTS; Start 11/09/17 at 18:15; Stop 11/12/17 at 18:50; Status DC Docusate Sodium (Colace) 100 mg PRN DAILY PRN PO CONSTIPATION; Start 11/09/17 at 18:15; Stop 11/12/17 at 18:50; Status DC Sodium Chloride 1,000 ml @ 100 mls/hr Q10H IV Last administered on 11/11/17at 20:13; Start 11/09/17 at 18:15; Stop 11/12/17 at 18:50; Status DC Insulin Human Lispro (HumaLOG) 0-9 UNITS TIDWMEALS SQ Last administered on 11/12at 12:13; Start 11/10/17 at 08:00; Stop 11/12/17 at 18:50; Status DC Dextrose (Dextrose 50%-Water Syringe) 12.5 gm PRN Q15MIN PRN IV SEE COMMENTS; Start 11/09/17 at 18:15; Stop 11/12/17 at 18:50; Status DC Heparin Sodium (Porcine) (Heparin Sq) 5,000 unit Q8HRS SQ Last administered on 11/12/17at 06:14; Start 11/09/17 at 19:00; Stop 11/12/17 at 18:50; Status DC Trazodone HCl (Desyrel) 50 mg QHS PO Last administered on 11/11/17at 20:12; Start 11/09/17 at 21:15; Stop 11/12/17 at 18:50; Status DC Morphine Sulfate (Ms Contin) 15 mg BID PO Last administered on 11/12/17 08:13 ; Start 11/09/17 at 21:15; Stop 11/12/17 at 18:50; Status DC Aspirin (Soni Aspirin) 325 mg BID PO Last administered on 11/12/17at 08:12; Start 11/11/17 at 09:00; Stop 11/12/17 at 18:50; Status DC Vitamin D (Vitamin D3) 2,000 unit DAILY PO Last administered on 11/12/17at 08:13 ; Start 11/11/17 at 09:00; Stop 11/12/17 at 18:50; Status DC Clopidogrel Bisulfate (Plavix) 75 mg DAILY PO Last administered on 11/12/17at 08 :12; Start 11/11/17 at 09:00; Stop 11/12/17 at 18:50; Status DC Docusate Sodium (Colace) 100 mg DAILY PO ; Start 11/11/17 at 09:00; Stop at 18:50; Status DC Metoprolol Tartrate (Lopressor) 1,000 mg BID PO ; Start 11/11/17 at 09:00; Stop 11/11/17 at 09:22; Status DC Morphine Sulfate (Ms Contin) 15 mg BID PO ; Start 11/11/17 at 09:00; Stop at 15:30; Status DC Pantoprazole Sodium (Protonix) 40 mg HS PO Last administered on 11/11/17at 09:06 ; Start 11/11/17 at 21:00; Stop 11/12/17 at 18:50; Status DC Trazodone HCl (Desyrel) 50 mg HS PO ; Start 11/11/17 at 21:00; Stop 11/11/17 at 21:00; Status DC Atorvastatin Calcium (Lipitor) 40 mg QHS PO Last administered on 11/11/17at 20: 12; Start 11/11/17 at 21:00; Stop 11/11/17 at 22:00; Status DC Cyanocobalamin (Vitamin B-12) 2,500 mcg DAILY PO Last administered on at 08:12; Start 11/11/17 at 09:00; Stop 11/12/17 at 18:50; Status DC Fish Oil (Fish Oil) 1,000 mg DAILY PO Last administered on 11/12/17at 08:12; Start 11/11/17 at 09:00; Stop 11/12/17 at 18:50; Status DC Gabapentin (Neurontin) 400 mg TID PO Last administered on 11/12/17at 12:11; Start 11/11/17 at 09:00; Stop 11/12/17 at 18:50; Status DC Insulin Human Isoph/Insulin Regular (HumuLIN 70/30) 30 units DAILYWSUP SQ Last administered on 11/12/17at 17:54; Start 11/11/17 at 17:00; Stop 11/12/17 at 18:50 ; Status DC Insulin Human Isoph/Insulin Regular (HumuLIN 70/30) 40 units DAILYWBKFT SQ Last administered on 11/12/17at 08:21; Start 11/11/17 at 09:00; Stop 11/12/17 at 18:50; Status DC Labetalol HCl (Trandate) 200 mg BID PO Last administered on 11/12/17at 08:15; Start 11/11/17 at 09:00; Stop 11/12/17 at 18:50; Status DC Meloxicam (Mobic) 15 mg DAILY PO ; Start 11/11/17 at 09:00; Stop 11/11/17 at 11: 52; Status DC Non-Formulary Medication (Ubidecarenone (Coenzyme Q10)) 100 mg BID PO ; Start at 09:00; Status UNV Lisinopril (Prinivil) 40 mg DAILY PO Last administered on 11/12/17at 08:15; Start 11/12/17 at 09:00; Stop 11/12/17 at 18:50; Status DC Active Scripts Active Reported Lisinopril 20 Mg Tablet 2 Tab PO DAILY Lisinopril 40 Mg Tablet 40 Gralise (Gabapentin) 600 Mg Tab.er.24h 1,500 Mg PO DAILY Trazodone Hcl 50 Mg Tablet 50 Mg PO HS Hydrocodone-Apap 5-325 (Hydrocodone Bit/Acetaminophen) 1 Each Tablet 1 Tab PO PRN Q6HRS PRN Morphine Sulfate Er (Morphine Sulfate) 15 Mg Tablet.er 15 Mg PO BID Meloxicam 15 Mg Tablet 15 Mg PO DAILY Colace (Docusate Sodium) 100 Mg Capsule 100 Mg PO DAILY Labetalol Hcl 200 Mg Tablet 200 Mg PO BID Atorvastatin Calcium 80 Mg Tablet 40 Mg PO DAILY Flax Seed Oil 1,300 Mg Softgel (Flaxseed/Omega3,6,9/Fatty Acid) 1 Each Capsule 1 Each PO DAILY Coenzyme Q10 (Ubidecarenone) 100 Mg Tablet 100 Mg PO BID Vitamin D3 (Cholecalciferol (Vitamin D3)) 1,000 Unit Tablet 2 Tab AD DAILY Vitamin B12 (Cyanocobalamin (Vitamin B-12)) 2,500 Mcg Tablet 2,500 Mcg PO DAILY Nitrostat (Nitroglycerin) 0.4 Mg Tab.subl 1 Tab SL UD Pantoprazole Sodium 40 Mg Tablet.dr 1 Tab PO HS Novolin 70-30 100 Unit/Ml Vial (Hum Insulin Nph/Reg Insulin Hm) 100 Unit/1 Ml Vial 30 Unit SQ DAILYWSUP Novolin 70-30 100 Unit/Ml Vial (Hum Insulin Nph/Reg Insulin Hm) 100 Unit/1 Ml Vial 40 Unit SQ DAILY Humalog (Insulin Lispro) 100 Unit/1 Ml Cartridge 1 Unit SQ Clopidogrel (Clopidogrel Bisulfate) 75 Mg Tablet 1 Tab PO DAILY Aspirin 325 Mg Tablet 325 Mg PO BID Vital Signs Vital Signs Date Time Temp Pulse Resp B/P (MAP) Pulse Ox O2 Delivery O2 Flow Rate FiO2 11/12/17 15:00 97.9 66 20 149/63 (91) 98 Room Air 97.9 Labs Laboratory Tests Test 11/11/17 10:40 11/11/17 16:48 11/11/17 20:12 11/12/17 04:25 Glucose (Fingerstick) 227 mg/dL (70-99) 150 mg/dL (70-99) 167 mg/dL (70-99) Sodium Level 137 mmol/L (136-145) Potassium Level 4.0 mmol/L (3.5-5.1) Chloride Level 105 mmol/L (98-107) Carbon Dioxide Level 25 mmol/L (21-32) Anion Gap 7 (6-14) Blood Urea Nitrogen 23 mg/dL (8-26) Creatinine 0.9 mg/dL (0.7-1.3) Estimated GFR (Cockcroft-Gault) 84.2 Glucose Level 127 mg/dL (70-99) Calcium Level 9.0 mg/dL (8.5-10.1) Phosphorus Level 1.9 mg/dL (2.6-4.7) Albumin 3.4 g/dL (3.4-5.0) Triglycerides Level 82 mg/dL (0-150) Cholesterol Level 122 mg/dL (0-200) LDL Cholesterol, Calculated 66 mg/dL (0-100) VLDL Cholesterol, Calculated 16 mg/dL (0-40) Non-HDL Cholesterol Calculated 82 mg/dL (0-129) HDL Cholesterol 40 mg/dL (40-60) Cholesterol/HDL Ratio 3.1 Test 11/12/17 07:27 11/12/17 11:24 11/12/17 16:19 Glucose (Fingerstick) 144 mg/dL (70-99) 198 mg/dL (70-99) 149 mg/dL (70-99) Laboratory Tests Test 11/12/17 11:24 11/12/17 16:19 Glucose (Fingerstick) 198 mg/dL (70-99) 149 mg/dL (70-99) Allergies Allergies Coded Allergies Type Severity Reaction Last Updated Verified Rxlsknp-Tgq-Mre Reductase Inhibitor Allergy Intermediate 06/30/15 Yes Disposition/Orders: D/C to Home Patient Instructions SEE PCP XOCHILT RENAL IN 1 WEEK, HYDRATE D/C PLANNING 36 MIN EMIGDIO HUNTER MD Nov 13, 2017 09:59
== END 2017-11-12 18:50 | disposition home or self-care (01) | DRG 682 ==
LOC: ER 15:01 → 6 SOUTH 16:35
PROVIDERS: ADMIT Internal Medicine; ATTEND Internal Medicine
DX: N17.0 Acute kidney failure with tubular necrosis (principal); G93.40 Encephalopathy, unspecified; I50.22 Chronic systolic (congestive) heart failure; E87.2 Acidosis; E11.9 Type 2 diabetes mellitus without complications; E66.9 Obesity, unspecified; E78.5 Hyperlipidemia, unspecified; E86.0 Dehydration; I11.0 Hypertensive heart disease with heart failure; K21.9 Gastro-esophageal reflux disease without esophagitis; I25.10 Atherosclerotic heart disease of native coronary artery without angina pectoris; I25.2 Old myocardial infarction; Z82.49 Family history of ischemic heart disease and other diseases of the circulatory system; Z83.3 Family history of diabetes mellitus; Z87.891 Personal history of nicotine dependence; Z95.5 Presence of coronary angioplasty implant and graft; G89.29 Other chronic pain; K59.00 Constipation, unspecified; M19.90 Unspecified osteoarthritis, unspecified site; Z68.34 Body mass index [BMI] 34.0-34.9, adult; Z88.8 Allergy status to other drugs, medicaments and biological substances
CPT/HCPCS: 36415; 36600; 70450; 70551; 71045; 76770; 80048; 80053; 80061; 80069; 80307; 81001; 82010; 82553; 82607; 82805; 82962; 83605; 83690; 83735; 83880; 84439; 84443; 84484; 85025; 93005; 93306; 95816; 96360; J1815; J7030; 97116; 99285-25; G0479

== ENCOUNTER 2018-05-01 14:03 | Inpatient (IN) | payer MEDICARE, OTHER ==
[~2018-05-01] VITALS: Ht 177.8 cm; Wt 117.5 kg
[~2018-05-01 14:03] MED LIST changes: +DOCU-109 PO; +GABA600T14 PO; +HYDR-2761 PO; -HYDR-2762 PO; +HYDR-2765 PO; +LABE200T4 PO; +LISI-334 PO; +LISI40TA2; +MELO15TA23 PO; -METF10003 PO; +METF10007 PO; +MORP15TA3 PO; -PANT40TA5 PO; +PANT40TA77 PO; +TRAZ-118 PO
--- NOTE | 2018-05-01 14:30 | PHYS DOC ---
Past Medical History Past Medical History: CAD, Diabetes-Type II, Hypertension (BEE SUAZO APRN) Past Surgical History: Angioplasty, Other Additional Past Surgical Histo: HEART CATH AND 4-5 CARDIAC STENTS IN LAD (BEE SUAZO APRN) Alcohol Use: None Drug Use: None (BEE SUAZO APRN) Adult General Chief Complaint Chief Complaint: SHORTNESS OF BREATH [facility] HPI Patient is a 67 year old Male who presents to the emergency department today with complaints of increased shortness of breath and weakness over the past week. Patient states that the shortness of breath increases with activity. He denies any chest pain, palpitations, nausea, vomiting, diarrhea, or abdominal pain. Patient states that his legs are also swollen. Patient states his shortness of breath has been so severe that for the last 2 nights he has had to sleep in a chair. Patient denies any history of congestive heart failure. He states he has also noticed the last 2 nights that he has not had to get up to use the bathroom during the night which is abnormal for him. Patient states he usually gets at least 4 times a night to urinate. Over the last 1-2 years patient also reports significant weight gain of 30 pounds. (BEE SUAZO APRN) Review of Systems Review of Systems Constitutional: Denies fever or chills [] Eyes: Denies change in visual acuity, redness, or eye pain [] HENT: Denies nasal congestion or sore throat [] Respiratory: Denies cough; see history of present illness Cardiovascular: No additional information not addressed in HPI [] GI: Denies abdominal pain, nausea, vomiting, or diarrhea [] : Denies dysuria or hematuria; see history of present illness [] Musculoskeletal: Denies back pain or joint pain, reports swelling of bilateral lower extremities [] Integument: Denies rash or skin lesions [] Neurologic: Denies headache, focal weakness or sensory changes [] Endocrine: Denies polyuria or polydipsia [] All other systems were reviewed and found to be within normal limits, except as documented in this note. (BEE SUAZO APRN) Allergies Allergies Allergies Coded Allergies Type Severity Reaction Last Updated Verified Qikexwg-Jyx-Axw Reductase Inhibitor Allergy Intermediate 06/30/15 Yes (DANAE ANGULO DO) Physical Exam Physical Exam Constitutional: Well developed, well nourished, no acute distress, non-toxic appearance, obese. [] HENT: Normocephalic, atraumatic, bilateral external ears normal, oropharynx moist, no oral exudates, nose normal. [] Eyes: conjunctiva normal, no discharge. [] Neck: Normal range of motion, no stridor. [] Cardiovascular:Heart rate regular rhythm, no murmur [] Lungs & Thorax: Bilateral breath sounds clear to auscultation in all key [] Abdomen: soft, no tenderness, no masses, no pulsatile masses. [] Skin: Warm, dry, no erythema, no rash. [] Extremities: No tenderness, no cyanosis, no clubbing, ROM intact, 3+ edema of bilateral LE up to knees Neurologic: Alert and oriented X 3, normal motor function, normal sensory function, no focal deficits noted. [] Psychologic: Affect normal, judgement normal, mood normal. [] (BEE SUAZO APRN) Current Patient Data Vital Signs Vital Signs Date Time Temp Pulse Resp B/P (MAP) Pulse Ox O2 Delivery O2 Flow Rate FiO2 05/01/18 16:17 66 17 177/80 (112) 95 Room Air 05/01/18 14:28 98.6 98.6 (DANAE ANGULO DO) Lab Values Laboratory Tests Test 05/01/18 14:30 White Blood Count 6.8 x10^3/uL (4.0-11.0) Red Blood Count 4.22 x10^6/uL (4.30-5.70) L Hemoglobin 11.1 g/dL (13.0-17.5) L Hematocrit 34.6 % (39.0-53.0) L Mean Corpuscular Volume 82 fL (79-100) Mean Corpuscular Hemoglobin 26 pg (25-35) Mean Corpuscular Hemoglobin Concent 32 g/dL (31-37) Red Cell Distribution Width 14.6 % (11.5-14.5) H Platelet Count 191 x10^3/uL (140-400) Neutrophils (%) (Auto) 72 % (31-73) Lymphocytes (%) (Auto) 17 % (24-48) L Monocytes (%) (Auto) 9 % (0-9) Eosinophils (%) (Auto) 1 % (0-3) Basophils (%) (Auto) 1 % (0-3) Neutrophils # (Auto) 4.9 x10^3uL (1.8-7.7) Lymphocytes # (Auto) 1.2 x10^3/uL (1.0-4.8) Monocytes # (Auto) 0.6 x10^3/uL (0.0-1.1) Eosinophils # (Auto) 0.1 x10^3/uL (0.0-0.7) Basophils # (Auto) 0.0 x10^3/uL (0.0-0.2) Sodium Level 135 mmol/L (136-145) L Potassium Level 4.5 mmol/L (3.5-5.1) Chloride Level 100 mmol/L (98-107) Carbon Dioxide Level 28 mmol/L (21-32) Anion Gap 7 (6-14) Blood Urea Nitrogen 32 mg/dL (8-26) H Creatinine 1.5 mg/dL (0.7-1.3) H Estimated GFR (Cockcroft-Gault) 46.7 BUN/Creatinine Ratio 21 (6-20) H Glucose Level 144 mg/dL (70-99) H Hemoglobin A1c 7.7 % (4.8-5.6) H Calcium Level 9.2 mg/dL (8.5-10.1) Magnesium Level 1.9 mg/dL (1.8-2.4) Total Bilirubin 0.6 mg/dL (0.2-1.0) Aspartate Amino Transferase (AST) 41 U/L (15-37) H Alanine Aminotransferase (ALT) 57 U/L (16-63) Alkaline Phosphatase 102 U/L (46-116) Troponin I Quantitative < 0.017 ng/mL (0.000-0.055) EL-Grl-Z-Type Natriuretic Peptide 2219 pg/mL (0-124) H Total Protein 6.5 g/dL (6.4-8.2) Albumin 3.9 g/dL (3.4-5.0) Albumin/Globulin Ratio 1.5 (1.0-1.7) Thyroid Stimulating Hormone (TSH) 1.757 uIU/mL (0.358-3.74) Laboratory Tests 05/01/18 14:30 Laboratory Tests 05/01/18 14:30 (DANAE ANGULO DO) Lab Values Laboratory Tests Test 05/01/18 14:30 White Blood Count 6.8 x10^3/uL (4.0-11.0) Red Blood Count 4.22 x10^6/uL (4.30-5.70) L Hemoglobin 11.1 g/dL (13.0-17.5) L Hematocrit 34.6 % (39.0-53.0) L Mean Corpuscular Volume 82 fL (79-100) Mean Corpuscular Hemoglobin 26 pg (25-35) Mean Corpuscular Hemoglobin Concent 32 g/dL (31-37) Red Cell Distribution Width 14.6 % (11.5-14.5) H Platelet Count 191 x10^3/uL (140-400) Neutrophils (%) (Auto) 72 % (31-73) Lymphocytes (%) (Auto) 17 % (24-48) L Monocytes (%) (Auto) 9 % (0-9) Eosinophils (%) (Auto) 1 % (0-3) Basophils (%) (Auto) 1 % (0-3) Neutrophils # (Auto) 4.9 x10^3uL (1.8-7.7) Lymphocytes # (Auto) 1.2 x10^3/uL (1.0-4.8) Monocytes # (Auto) 0.6 x10^3/uL (0.0-1.1) Eosinophils # (Auto) 0.1 x10^3/uL (0.0-0.7) Basophils # (Auto) 0.0 x10^3/uL (0.0-0.2) Sodium Level 135 mmol/L (136-145) L Potassium Level 4.5 mmol/L (3.5-5.1) Chloride Level 100 mmol/L (98-107) Carbon Dioxide Level 28 mmol/L (21-32) Anion Gap 7 (6-14) Blood Urea Nitrogen 32 mg/dL (8-26) H Creatinine 1.5 mg/dL (0.7-1.3) H Estimated GFR (Cockcroft-Gault) 46.7 BUN/Creatinine Ratio 21 (6-20) H Glucose Level 144 mg/dL (70-99) H Calcium Level 9.2 mg/dL (8.5-10.1) Magnesium Level 1.9 mg/dL (1.8-2.4) Total Bilirubin 0.6 mg/dL (0.2-1.0) Aspartate Amino Transferase (AST) 41 U/L (15-37) H Alanine Aminotransferase (ALT) 57 U/L (16-63) Alkaline Phosphatase 102 U/L (46-116) Troponin I Quantitative < 0.017 ng/mL (0.000-0.055) XC-Mbr-Z-Type Natriuretic Peptide 2219 pg/mL (0-124) H Total Protein 6.5 g/dL (6.4-8.2) Albumin 3.9 g/dL (3.4-5.0) Albumin/Globulin Ratio 1.5 (1.0-1.7) Laboratory Tests 05/01/18 14:30 Laboratory Tests 05/01/18 14:30 (BEE SUAZO APRN) EKG EKG 1417 SR with PACs and prolonged HI, no STEMI rate 74, read by Dr. Angulo[] (BEE SUAZO APRN) Radiology/Procedures Radiology/Procedures PROCEDURE: CHEST PA & LATERAL Two-view chest dated 05/01/2018. Comparison made 11/09/2017. Clinical data indication: Shortness of breath for 2 weeks. FINDINGS: PA and lateral views obtained. Heart and mediastinal contours are stable. Lungs are clear without focal consolidation. Vascular interstitium within normal limits. No pleural effusion or pneumothorax. IMPRESSION: No acute radiographic abnormality. Stable findings compared to 11/09/2017.[] (BEE SUAZO APRN) Course & Med Decision Making Course & Med Decision Making Pertinent Labs and Imaging studies reviewed. (See chart for details) Dx: CHF, Acute kidney injury CXR- no acute findings, CBC: Hgb 11.1 Hct 34.6; CMP: gluc 144, Bun 32, Stonecutter Assistant 1.5, Ast 41, trop <0.017, 1623- will admit patient to Dr. Barnett, per Dr. Barnett order lasix 40 mg IV now. [] (BEE SUAZO APRN) Dragon Disclaimer Dragon Disclaimer This electronic medical record was generated, in whole or in part, using a voice recognition dictation system. (BEE SUAZO APRN) Departure Departure Impression: Primary Impression: CHF (congestive heart failure) Additional Impression: JUSTICE (acute kidney injury) Disposition: 09 ADMITTED INPATIENT Admitting Physician: Neris Barnett (BEE SUAZO APRN) Condition: STABLE Referrals: MARY BERGERON MD (PCP) Attending Signature Attending Signature I have reviewed the PA/RATINGS ANALYST's note and plan of care. I was available for consultation as needed during the patient's visit in the emergency department. I agree with the clinical impression, plan, and disposition. (DANAE ANGULO DO) Problem Qualifiers Primary Impression: CHF (congestive heart failure) Heart failure type: unspecified Heart failure chronicity: unspecified Qualified Codes: I50.9 - Heart failure, unspecified BEE SUAZO APRN May 01, 2018 14:30 DANAE ANGULO DO May 02, 2018 00:42
--- NOTE | 2018-05-01 14:31 | EKG ---
[facility] [address] [place] [address] Test Date: 2018-05-01 Test Time: 14:17:07 Pat Name: BEAR RODRIGUEZ Department: Room: Gender: M Psych Rn: , : 1950 Requested By: BEE SUAZO Order Number: [id number] Reading MD: Pramod Caraballo Measurements Intervals [place] Rate: 74 P: 34 LA: 222 QRS: 66 QRSD: 136 T: 0 QT: 462 QTc: 513 Interpretive Statements SINUS RHYTHM ATRIAL PREMATURE COMPLEX(ES) PROLONGED LA INTERVAL NON SPECIFIC INTRAVENTRICULAR BLOCK ABNORMAL ECG Electronically Signed On 05-04-2018 9:51:33 HEEL REDUCER by Pramod Caraballo
[2018-05-01 14:41] LABS: BASO % 1 % (0-3); EOS # 0.1 x10^3/uL (0.0-0.7); EOS % 1 % (0-3); HEMATOCRIT 34.6 % (39.0-53.0); HEMOGLOBIN 11.1 g/dL (13.0-17.5); LYMPH # 1.2 x10^3/uL (1.0-4.8); LYMPH % 17 % (24-48); MEAN CORPUSCULAR HEMOGLOBIN 26 pg (25-35); MEAN CORPUSCULAR HGB CONC 32 g/dL (31-37); MEAN CORPUSCULAR VOLUME 82 fL (79-100); MONO # 0.6 x10^3/uL (0.0-1.1); MONO % 9 % (0-9); NEUT # 4.9 x10^3uL (1.8-7.7); NEUT % 72 % (31-73); PLATELET COUNT 191 x10^3/uL (140-400); RED BLOOD COUNT 4.22 x10^6/uL (4.30-5.70); RED CELL DISTRIBUTION WIDTH 14.6 % (11.5-14.5); WHITE BLOOD COUNT 6.8 x10^3/uL (4.0-11.0)
[2018-05-01 14:56] LABS: CALCIUM 9.2 mg/dL (8.5-10.1); CREATININE 1.5 mg/dL (0.7-1.3); GFR 46.7; POTASSIUM 4.5 mmol/L (3.5-5.1)
[2018-05-01 15:02] LABS: ALBUMIN 3.9 g/dL (3.4-5.0); ALBUMIN/GLOBULIN RATIO 1.5 (1.0-1.7); MAGNESIUM 1.9 mg/dL (1.8-2.4); TOTAL BILIRUBIN 0.6 mg/dL (0.2-1.0); TOTAL PROTEIN 6.5 g/dL (6.4-8.2)
--- NOTE | 2018-05-01 15:07 | RAD ---
Two-view chest dated 05/01/2018. Comparison made 11/09/2017. Clinical data indication: Shortness of breath for 2 weeks. FINDINGS: PA and lateral views obtained. Heart and mediastinal contours are stable. Lungs are clear without focal consolidation. Vascular interstitium within normal limits. No pleural effusion or pneumothorax. IMPRESSION: No acute radiographic abnormality. Stable findings compared to 11/09/2017. Electronically signed by: Marciano Keen MD (05/01/2018 3:03 PM) [id number]
--- NOTE | 2018-05-01 16:39 | PDOC1 ---
History and Physical Date of Admission Date of Admission DATE: 05/01/18 TIME: 16:33 Identification/Chief Complaint Chief Complaint S OA �1 week Source Source: Caregiver, Chart review, Patient History of Present Illness History of Present Illness 77-year-old male brought in by concerned because of one week history of SOA, and a few days now sleeping upright because he cannot lay flat. PND or orthopnea present No JVD. Leg edema present very tight pitting edema maybe plus 3. NOt watching salt intake but also not putting extra salt in food. Creatinine 1.5 which is news to them. Not on any Lasix at home. Past medical history is CAD with 2 stents, hyperlipidemia and diabetes type 2 on NPH twice a day. No known history CHF. BNP elevated at 2200 with troponin 0 first set. Did discuss with mid-level provider ask her to give some Lasix plus cards consult. We'll monitor the kidney function. Patient agreeable to admission, seen at ER #[id number] He denies chest pain Past Medical History Cardiovascular: CAD, HTN, VA, Hyperlipidemia Pulmonary: No pertinent hx GI: Constipation, GERD Heme/Onc: No pertinent hx Hepatobiliary: No pertinent hx Psych: No pertinent hx Musculoskeletal: Osteoarthritis Rheumatologic: No pertinent hx Infectious disease: No pertinent hx Renal/: No pertinent hx Endocrine: Diabetes Past Surgical History Past Surgical History: No pertinent history Family History Family History: Diabetes, Heart Disease, Hypertension Social History Smoke: No ALCOHOL: none Drugs: None Current Medications Current Medications Current Medications Furosemide (Lasix) 40 mg 1X ONCE IVP ; Start 05/01/18 at 16:45; Stop 05/01/18 at 16:46; Status UNV Active Scripts Active Reported Lisinopril 20 Mg Tablet 2 Tab PO DAILY Lisinopril 40 Mg Tablet 40 Gralise (Gabapentin) 600 Mg Tab.er.24h 1,500 Mg PO DAILY Trazodone Hcl 50 Mg Tablet 50 Mg PO HS Hydrocodone-Apap 5-325 (Hydrocodone Bit/Acetaminophen) 1 Each Tablet 1 Tab PO PRN Q6HRS PRN Morphine Sulfate Er (Morphine Sulfate) 15 Mg Tablet.er 15 Mg PO BID Meloxicam 15 Mg Tablet 15 Mg PO DAILY Colace (Docusate Sodium) 100 Mg Capsule 100 Mg PO DAILY Labetalol Hcl 200 Mg Tablet 200 Mg PO BID Atorvastatin Calcium 80 Mg Tablet 40 Mg PO DAILY Flax Seed Oil 1,300 Mg Softgel (Flaxseed/Omega3,6,9/Fatty Acid) 1 Each Capsule 1 Each PO DAILY Coenzyme Q10 (Ubidecarenone) 100 Mg Tablet 100 Mg PO BID Vitamin D3 (Cholecalciferol (Vitamin D3)) 1,000 Unit Tablet 2 Tab AD DAILY Vitamin B12 (Cyanocobalamin (Vitamin B-12)) 2,500 Mcg Tablet 2,500 Mcg PO DAILY Nitrostat (Nitroglycerin) 0.4 Mg Tab.subl 1 Tab SL UD Pantoprazole Sodium 40 Mg Tablet.dr 1 Tab PO HS Novolin 70-30 100 Unit/Ml Vial (Hum Insulin Nph/Reg Insulin Hm) 100 Unit/1 Ml Vial 30 Unit SQ DAILYWSUP Novolin 70-30 100 Unit/Ml Vial (Hum Insulin Nph/Reg Insulin Hm) 100 Unit/1 Ml Vial 40 Unit SQ DAILY Humalog (Insulin Lispro) 100 Unit/1 Ml Cartridge 1 Unit SQ Clopidogrel (Clopidogrel Bisulfate) 75 Mg Tablet 1 Tab PO DAILY Aspirin 325 Mg Tablet 325 Mg PO BID Allergies Allergies: Coded Allergies: Qwryfxx-Gjn-Gzd Reductase Inhibitor (Verified Allergy, Intermediate, ) Worsens myalgia ROS Review of System As per history of present illness plus weight gain secondary to fluid otherwise rest of ROS negative. He denies chest pain Physical Exam General: Alert, Oriented X3, Cooperative, No acute distress HEENT: Atraumatic, PERRLA, EOMI, Mucous membr. moist/pink Lungs: Normal air movement, Other (dec breath sounds on the bases) Heart: S1S2, RRR, no thrills, no rubs, no gallops, no murmurs Cardiovascular: S1, S2 Abdomen: Normal bowel sounds, Soft, No tenderness, No hepatosplenomegaly, No masses Rectal Exam: not examined Extremities: Other (+2-3 tight pitting edema) Skin: No rashes, No breakdown, No significant lesion Neuro: Normal gait, Normal speech, Strength at 5/5 X4 ext, Normal tone, Sensation intact, Cranial nerves 3-12 NL, Reflexes 2+ Psych/Mental Status: Mental status NL, Mood NL Vitals Vitals Vital Signs Date Time Temp Pulse Resp B/P (MAP) Pulse Ox O2 Delivery O2 Flow Rate FiO2 05/01/18 14:28 98.6 68 16 151/73 (99) 98 Room Air 98.6 Labs Labs Laboratory Tests Test 05/01/18 14:30 White Blood Count 6.8 x10^3/uL (4.0-11.0) Red Blood Count 4.22 x10^6/uL (4.30-5.70) Hemoglobin 11.1 g/dL (13.0-17.5) Hematocrit 34.6 % (39.0-53.0) Mean Corpuscular Volume 82 fL (79-100) Mean Corpuscular Hemoglobin 26 pg (25-35) Mean Corpuscular Hemoglobin Concent 32 g/dL (31-37) Red Cell Distribution Width 14.6 % (11.5-14.5) Platelet Count 191 x10^3/uL (140-400) Neutrophils (%) (Auto) 72 % (31-73) Lymphocytes (%) (Auto) 17 % (24-48) Monocytes (%) (Auto) 9 % (0-9) Eosinophils (%) (Auto) 1 % (0-3) Basophils (%) (Auto) 1 % (0-3) Neutrophils # (Auto) 4.9 x10^3uL (1.8-7.7) Lymphocytes # (Auto) 1.2 x10^3/uL (1.0-4.8) Monocytes # (Auto) 0.6 x10^3/uL (0.0-1.1) Eosinophils # (Auto) 0.1 x10^3/uL (0.0-0.7) Basophils # (Auto) 0.0 x10^3/uL (0.0-0.2) Sodium Level 135 mmol/L (136-145) Potassium Level 4.5 mmol/L (3.5-5.1) Chloride Level 100 mmol/L (98-107) Carbon Dioxide Level 28 mmol/L (21-32) Anion Gap 7 (6-14) Blood Urea Nitrogen 32 mg/dL (8-26) Creatinine 1.5 mg/dL (0.7-1.3) Estimated GFR (Cockcroft-Gault) 46.7 BUN/Creatinine Ratio 21 (6-20) Glucose Level 144 mg/dL (70-99) Calcium Level 9.2 mg/dL (8.5-10.1) Magnesium Level 1.9 mg/dL (1.8-2.4) Total Bilirubin 0.6 mg/dL (0.2-1.0) Aspartate Amino Transf (AST/SGOT) 41 U/L (15-37) Alanine Aminotransferase (ALT/SGPT) 57 U/L (16-63) Alkaline Phosphatase 102 U/L (46-116) Troponin I Quantitative < 0.017 ng/mL (0.000-0.055) IU-Nuy-Z-Type Natriuretic Peptide 2219 pg/mL (0-124) Total Protein 6.5 g/dL (6.4-8.2) Albumin 3.9 g/dL (3.4-5.0) Albumin/Globulin Ratio 1.5 (1.0-1.7) Laboratory Tests Test 05/01/18 14:30 White Blood Count 6.8 x10^3/uL (4.0-11.0) Red Blood Count 4.22 x10^6/uL (4.30-5.70) Hemoglobin 11.1 g/dL (13.0-17.5) Hematocrit 34.6 % (39.0-53.0) Mean Corpuscular Volume 82 fL (79-100) Mean Corpuscular Hemoglobin 26 pg (25-35) Mean Corpuscular Hemoglobin Concent 32 g/dL (31-37) Red Cell Distribution Width 14.6 % (11.5-14.5) Platelet Count 191 x10^3/uL (140-400) Neutrophils (%) (Auto) 72 % (31-73) Lymphocytes (%) (Auto) 17 % (24-48) Monocytes (%) (Auto) 9 % (0-9) Eosinophils (%) (Auto) 1 % (0-3) Basophils (%) (Auto) 1 % (0-3) Neutrophils # (Auto) 4.9 x10^3uL (1.8-7.7) Lymphocytes # (Auto) 1.2 x10^3/uL (1.0-4.8) Monocytes # (Auto) 0.6 x10^3/uL (0.0-1.1) Eosinophils # (Auto) 0.1 x10^3/uL (0.0-0.7) Basophils # (Auto) 0.0 x10^3/uL (0.0-0.2) Sodium Level 135 mmol/L (136-145) Potassium Level 4.5 mmol/L (3.5-5.1) Chloride Level 100 mmol/L (98-107) Carbon Dioxide Level 28 mmol/L (21-32) Anion Gap 7 (6-14) Blood Urea Nitrogen 32 mg/dL (8-26) Creatinine 1.5 mg/dL (0.7-1.3) Estimated GFR (Cockcroft-Gault) 46.7 BUN/Creatinine Ratio 21 (6-20) Glucose Level 144 mg/dL (70-99) Calcium Level 9.2 mg/dL (8.5-10.1) Magnesium Level 1.9 mg/dL (1.8-2.4) Total Bilirubin 0.6 mg/dL (0.2-1.0) Aspartate Amino Transf (AST/SGOT) 41 U/L (15-37) Alanine Aminotransferase (ALT/SGPT) 57 U/L (16-63) Alkaline Phosphatase 102 U/L (46-116) Troponin I Quantitative < 0.017 ng/mL (0.000-0.055) HJ-Mvo-R-Type Natriuretic Peptide 2219 pg/mL (0-124) Total Protein 6.5 g/dL (6.4-8.2) Albumin 3.9 g/dL (3.4-5.0) Albumin/Globulin Ratio 1.5 (1.0-1.7) VTE Prophylaxis Ordered VTE Prophylaxis Devices: Yes VTE Pharmacological Prophylaxi: Yes Assessment/Plan Assessment/Plan CHF exacerbation-type to be determined Leg edema, acute onset sec to above History of CAD with 2 stents Dyslipidemia Diabetes on NPH twice a day JUSTICE-the baseline creatinine 0.9 Plan: Admit cvc 2 mN Lasix now Recheck lites tomorrow Cards consult Check TSH I have reconciled home meds including NPH plus sliding scale insulin before meals at bedtime Will need echo at least MAy check hgba1c for completions sake BMP again tmr Dw midlevel ER FULL CODE RAFFI BOWEN MD May 01, 2018 16:39
[2018-05-01] MEDS ORDERED: CALCIUM CARBONATE 500 MG TAB.CHEW PO PRN (16:45)
[2018-05-01] MEDS ORDERED: FUROSEMIDE 40 MG/4 ML VIAL. IVP ONE (16:45)
[2018-05-01] MEDS ORDERED: oxyCODONE/APAP 5/325 1 TAB TABLET PO PRN (16:45)
[2018-05-01] MEDS ORDERED: DEXTROSE 50% 25 GM / 50ML DISP.SYRIN. IV PRN (16:45)
[2018-05-01] MEDS ORDERED: ACETAMINOPHEN/CODEINE 300/30MG TABLET. PO PRN (16:45)
[2018-05-01] MEDS ORDERED: diphenhydrAMINE HCL 25 MG CAPSULE PO PRN (16:45)
[2018-05-01] MEDS ORDERED: ACETAMINOPHEN 500 MG TABLET PO PRN (16:45)
[2018-05-01] MEDS: INSULIN NPH/REG INSULIN 70/30 300 UNITS/3 ML INSULN.PEN. SQ SCH (18:00)
[2018-05-01] MEDS: INSULIN LISPRO 300 UNITS/3 ML INSULN.PEN. SQ SCH (18:00)
[2018-05-01 18:06] VITALS: BP 161/63
--- NOTE | 2018-05-01 18:24 | NUR ---
Pt arrived from ED per w/c at 1750. Positioned for comfort,tele applied ,and dinner provided,and home meds reviewed.
[2018-05-01 19:00] VITALS: BP 136/54
[2018-05-01] MEDS: ASPIRIN 325 MG TABLET PO SCH (20:53)
[2018-05-01] MEDS: LABETALOL HCL 200 MG TABLET PO SCH (20:53)
[2018-05-01] MEDS: PANTOPRAZOLE 40 MG TABLET.DR. PO SCH (20:53)
[2018-05-01] MEDS: traZODone 50 MG TABLET. PO SCH (20:53)
[2018-05-01] MEDS: ATORVASTATIN CALCIUM 40 MG TABLET. PO SCH (20:53)
[2018-05-01] MEDS ORDERED: MORPHINE ER 15 MG TABLET.ER PO SCH (21:00)
[2018-05-01] MEDS ORDERED: NON FORMULARY ITEM (Ubidecarenone (Coenzyme Q10) 100 MG) PO SCH (21:00)
[2018-05-01 23:18] VITALS: BP 119/77
[2018-05-02 00:11] LABS: HEMOGLOBIN A1C 7.7 % (4.8-5.6)
[2018-05-02 03:19] VITALS: BP 137/79
[2018-05-02 07:00] VITALS: BP 119/92
[2018-05-02] MEDS: INSULIN LISPRO 300 UNITS/3 ML INSULN.PEN. SQ SCH ×3 (08:00→17:00)
[2018-05-02] MEDS: LABETALOL HCL 200 MG TABLET PO SCH ×2 (08:31→20:19)
[2018-05-02] MEDS: DOCUSATE SODIUM 100 MG CAPSULE. PO SCH (08:32)
[2018-05-02] MEDS: CLOPIDOGREL BISULFATE 75 MG TABLET PO SCH (08:32)
[2018-05-02] MEDS: MORPHINE ER 15 MG TABLET.ER PO SCH ×2 (08:32→17:30)
[2018-05-02] MEDS: ASPIRIN 325 MG TABLET PO SCH ×2 (08:32→20:18)
[2018-05-02] MEDS: LISINOPRIL 20 MG TABLET PO SCH (08:33)
[2018-05-02] MEDS: INSULIN NPH/REG INSULIN 70/30 300 UNITS/3 ML INSULN.PEN. SQ SCH ×2 (08:46→17:36)
[2018-05-02] MEDS ORDERED: FATTY ACID PO SCH (09:00)
[2018-05-02] MEDS ORDERED: [UNRECOGNIZED DRUG - OTHER] PO SCH (09:00)
[2018-05-02] MEDS ORDERED: FLAXSEED PO SCH (09:00)
[2018-05-02] MEDS ORDERED: CYANOCOBALAMIN (VITAMIN B-12) 1,000 MCG TABLET. PO SCH (09:00)
[2018-05-02] MEDS ORDERED: GABAPENTIN 100 MG CAPSULE. PO SCH (09:00)
[2018-05-02] MEDS ORDERED: CHOLECALCIFEROL (VITAMIN D3) 1,000 UNIT TABLET PO SCH (09:00)
[2018-05-02] MEDS ORDERED: OMEGA3 PO SCH (09:00)
--- NOTE | 2018-05-02 10:36 | PDOC ---
PROGRESS NOTES History of Present Illness History of Present Illness Assessment/Plan Assessment/Plan CHF exacerbation- mild pulmonary hypertension. Leg edema, acute onset sec to above History of CAD with 2 stents Dyslipidemia Diabetes on NPH twice a day JUSTICE-the baseline creatinine 0.9 extreme morbid obesity Plan: Admit cvc 2 mN Lasix iv Cards following Check TSH home meds including NPH plus sliding scale insulin before meals at bedtime echo hgb a1c BMP Vitals Vitals Vital Signs Date Time Temp Pulse Resp B/P (MAP) Pulse Ox O2 Delivery O2 Flow Rate FiO2 05/02/18 08:33 71 119/92 05/02/18 08:32 18 91 Room Air 05/02/18 07:00 98.7 98.7 Physical Exam General: Alert, Oriented X3, Cooperative, No acute distress Lungs: Clear Abdomen: Normal bowel sounds, Soft, No tenderness, No hepatosplenomegaly, No masses Extremities: Other (+2-3 tight pitting edema) Skin: No rashes, No breakdown, No significant lesion Labs LABS Two-view chest dated 05/01/2018. Comparison made 11/09/2017. Clinical data indication: Shortness of breath for 2 weeks. FINDINGS: PA and lateral views obtained. Heart and mediastinal contours are stable. Lungs are clear without focal consolidation. Vascular interstitium within normal limits. No pleural effusion or pneumothorax. IMPRESSION: No acute radiographic abnormality. Stable findings compared to 11/09/2017. Electronically signed by: Marciano Keen MD (05/01/2018 3:03 PM) [id number] Laboratory Tests Test 05/01/18 14:30 05/01/18 17:57 05/01/18 20:29 05/02/18 07:21 White Blood Count 6.8 x10^3/uL (4.0-11.0) Red Blood Count 4.22 x10^6/uL (4.30-5.70) Hemoglobin 11.1 g/dL (13.0-17.5) Hematocrit 34.6 % (39.0-53.0) Mean Corpuscular Volume 82 fL (79-100) Mean Corpuscular Hemoglobin 26 pg (25-35) Mean Corpuscular Hemoglobin Concent 32 g/dL (31-37) Red Cell Distribution Width 14.6 % (11.5-14.5) Platelet Count 191 x10^3/uL (140-400) Neutrophils (%) (Auto) 72 % (31-73) Lymphocytes (%) (Auto) 17 % (24-48) Monocytes (%) (Auto) 9 % (0-9) Eosinophils (%) (Auto) 1 % (0-3) Basophils (%) (Auto) 1 % (0-3) Neutrophils # (Auto) 4.9 x10^3uL (1.8-7.7) Lymphocytes # (Auto) 1.2 x10^3/uL (1.0-4.8) Monocytes # (Auto) 0.6 x10^3/uL (0.0-1.1) Eosinophils # (Auto) 0.1 x10^3/uL (0.0-0.7) Basophils # (Auto) 0.0 x10^3/uL (0.0-0.2) Sodium Level 135 mmol/L (136-145) Potassium Level 4.5 mmol/L (3.5-5.1) Chloride Level 100 mmol/L (98-107) Carbon Dioxide Level 28 mmol/L (21-32) Anion Gap 7 (6-14) Blood Urea Nitrogen 32 mg/dL (8-26) Creatinine 1.5 mg/dL (0.7-1.3) Estimated GFR (Cockcroft-Gault) 46.7 BUN/Creatinine Ratio 21 (6-20) Glucose Level 144 mg/dL (70-99) Hemoglobin A1c 7.7 % (4.8-5.6) Calcium Level 9.2 mg/dL (8.5-10.1) Magnesium Level 1.9 mg/dL (1.8-2.4) Total Bilirubin 0.6 mg/dL (0.2-1.0) Aspartate Amino Transf (AST/SGOT) 41 U/L (15-37) Alanine Aminotransferase (ALT/SGPT) 57 U/L (16-63) Alkaline Phosphatase 102 U/L (46-116) Troponin I Quantitative < 0.017 ng/mL (0.000-0.055) YX-Nwa-C-Type Natriuretic Peptide 2219 pg/mL (0-124) Total Protein 6.5 g/dL (6.4-8.2) Albumin 3.9 g/dL (3.4-5.0) Albumin/Globulin Ratio 1.5 (1.0-1.7) Thyroid Stimulating Hormone (TSH) 1.757 uIU/mL (0.358-3.74) Glucose (Fingerstick) 90 mg/dL (70-99) 165 mg/dL (70-99) 149 mg/dL (70-99) Assessment and Plan Assessmemt and Plan Problems Medical Problems: (1) JUSTICE (acute kidney injury) Status: Acute (2) CHF (congestive heart failure) Status: Acute LEFT VENTRICLE The Left Ventricle is mildly dilated. There is mild concentric left ventricular hypertrophy. Left ventricle systolic function is normal. The Ejection Fraction is 55%. There is normal LV segmental wall motion. Transmitral Doppler flow pattern is Grade II-pseudonormal filling dynamics. RIGHT VENTRICLE The right ventricle is normal size. The right ventricular systolic function is normal. ATRIA The left atrium size is normal. The right atrium size is normal. The interatrial septum is intact with no evidence for an atrial septal defect or patent foramen ovale as noted on 2-D or Doppler imaging. AORTIC VALVE The aortic valve is calcified but opens well. Doppler and Color Flow revealed mild aortic regurgitation. There is no significant aortic valvular stenosis. MITRAL VALVE The mitral valve is normal in structure and function. There is no evidence of mitral valve prolapse. There is no mitral valve stenosis. Doppler and Color- flow revealed trace mitral regurgitation. TRICUSPID VALVE The tricuspid valve is normal in structure and function. Doppler and Color Flow revealed trace tricuspid regurgitation. There is mild pulmonary hypertension. The PA pressure was estimated at 37 mmHg. There is no tricuspid valve stenosis. PULMONIC VALVE The pulmonary valve is normal in structure and function. Doppler and Color Flow revealed no pulmonic valvular regurgitation. There is no pulmonic valvular stenosis. GREAT VESSELS The aortic root is normal in size. The ascending aorta is normal in size. The IVC is normal in size and collapses >50% with inspiration. PERICARDIAL EFFUSION There is no evidence of significant pericardial effusion. Critical Notification Critical Value: No <Conclusion> Left ventricle systolic function is normal. The Ejection Fraction is 55%. There is normal LV segmental wall motion. Mild aortic regurgitation. Trace mitral regurgitation. Trace tricuspid regurgitation. There is mild pulmonary hypertension. The PA pressure was estimated at 37 mmHg. There is no evidence of significant pericardial effusion. Signed by : Alton Sidhu, Electronically Approved : 11/10/2017 17:00:51 Comment Review of Relevant I have reviewed the following items kelsie (where applicable) has been applied. Labs Laboratory Tests Test 05/01/18 14:30 05/01/18 17:57 05/01/18 20:29 05/02/18 07:21 White Blood Count 6.8 x10^3/uL (4.0-11.0) Red Blood Count 4.22 x10^6/uL (4.30-5.70) Hemoglobin 11.1 g/dL (13.0-17.5) Hematocrit 34.6 % (39.0-53.0) Mean Corpuscular Volume 82 fL (79-100) Mean Corpuscular Hemoglobin 26 pg (25-35) Mean Corpuscular Hemoglobin Concent 32 g/dL (31-37) Red Cell Distribution Width 14.6 % (11.5-14.5) Platelet Count 191 x10^3/uL (140-400) Neutrophils (%) (Auto) 72 % (31-73) Lymphocytes (%) (Auto) 17 % (24-48) Monocytes (%) (Auto) 9 % (0-9) Eosinophils (%) (Auto) 1 % (0-3) Basophils (%) (Auto) 1 % (0-3) Neutrophils # (Auto) 4.9 x10^3uL (1.8-7.7) Lymphocytes # (Auto) 1.2 x10^3/uL (1.0-4.8) Monocytes # (Auto) 0.6 x10^3/uL (0.0-1.1) Eosinophils # (Auto) 0.1 x10^3/uL (0.0-0.7) Basophils # (Auto) 0.0 x10^3/uL (0.0-0.2) Sodium Level 135 mmol/L (136-145) Potassium Level 4.5 mmol/L (3.5-5.1) Chloride Level 100 mmol/L (98-107) Carbon Dioxide Level 28 mmol/L (21-32) Anion Gap 7 (6-14) Blood Urea Nitrogen 32 mg/dL (8-26) Creatinine 1.5 mg/dL (0.7-1.3) Estimated GFR (Cockcroft-Gault) 46.7 BUN/Creatinine Ratio 21 (6-20) Glucose Level 144 mg/dL (70-99) Hemoglobin A1c 7.7 % (4.8-5.6) Calcium Level 9.2 mg/dL (8.5-10.1) Magnesium Level 1.9 mg/dL (1.8-2.4) Total Bilirubin 0.6 mg/dL (0.2-1.0) Aspartate Amino Transf (AST/SGOT) 41 U/L (15-37) Alanine Aminotransferase (ALT/SGPT) 57 U/L (16-63) Alkaline Phosphatase 102 U/L (46-116) Troponin I Quantitative < 0.017 ng/mL (0.000-0.055) PW-Ylf-C-Type Natriuretic Peptide 2219 pg/mL (0-124) Total Protein 6.5 g/dL (6.4-8.2) Albumin 3.9 g/dL (3.4-5.0) Albumin/Globulin Ratio 1.5 (1.0-1.7) Thyroid Stimulating Hormone (TSH) 1.757 uIU/mL (0.358-3.74) Glucose (Fingerstick) 90 mg/dL (70-99) 165 mg/dL (70-99) 149 mg/dL (70-99) Laboratory Tests Test 05/01/18 14:30 05/01/18 17:57 05/01/18 20:29 05/02/18 07:21 White Blood Count 6.8 x10^3/uL (4.0-11.0) Red Blood Count 4.22 x10^6/uL (4.30-5.70) Hemoglobin 11.1 g/dL (13.0-17.5) Hematocrit 34.6 % (39.0-53.0) Mean Corpuscular Volume 82 fL (79-100) Mean Corpuscular Hemoglobin 26 pg (25-35) Mean Corpuscular Hemoglobin Concent 32 g/dL (31-37) Red Cell Distribution Width 14.6 % (11.5-14.5) Platelet Count 191 x10^3/uL (140-400) Neutrophils (%) (Auto) 72 % (31-73) Lymphocytes (%) (Auto) 17 % (24-48) Monocytes (%) (Auto) 9 % (0-9) Eosinophils (%) (Auto) 1 % (0-3) Basophils (%) (Auto) 1 % (0-3) Neutrophils # (Auto) 4.9 x10^3uL (1.8-7.7) Lymphocytes # (Auto) 1.2 x10^3/uL (1.0-4.8) Monocytes # (Auto) 0.6 x10^3/uL (0.0-1.1) Eosinophils # (Auto) 0.1 x10^3/uL (0.0-0.7) Basophils # (Auto) 0.0 x10^3/uL (0.0-0.2) Sodium Level 135 mmol/L (136-145) Potassium Level 4.5 mmol/L (3.5-5.1) Chloride Level 100 mmol/L (98-107) Carbon Dioxide Level 28 mmol/L (21-32) Anion Gap 7 (6-14) Blood Urea Nitrogen 32 mg/dL (8-26) Creatinine 1.5 mg/dL (0.7-1.3) Estimated GFR (Cockcroft-Gault) 46.7 BUN/Creatinine Ratio 21 (6-20) Glucose Level 144 mg/dL (70-99) Hemoglobin A1c 7.7 % (4.8-5.6) Calcium Level 9.2 mg/dL (8.5-10.1) Magnesium Level 1.9 mg/dL (1.8-2.4) Total Bilirubin 0.6 mg/dL (0.2-1.0) Aspartate Amino Transf (AST/SGOT) 41 U/L (15-37) Alanine Aminotransferase (ALT/SGPT) 57 U/L (16-63) Alkaline Phosphatase 102 U/L (46-116) Troponin I Quantitative < 0.017 ng/mL (0.000-0.055) CN-Nts-W-Type Natriuretic Peptide 2219 pg/mL (0-124) Total Protein 6.5 g/dL (6.4-8.2) Albumin 3.9 g/dL (3.4-5.0) Albumin/Globulin Ratio 1.5 (1.0-1.7) Thyroid Stimulating Hormone (TSH) 1.757 uIU/mL (0.358-3.74) Glucose (Fingerstick) 90 mg/dL (70-99) 165 mg/dL (70-99) 149 mg/dL (70-99) Medications Current Medications Furosemide (Lasix) 40 mg 1X ONCE IVP Last administered on 05/01/18 16:53; Start 05/01/18 at 16:45; Stop 05/01/18 at 16:46; Status DC Insulin Human Lispro (HumaLOG) 0-9 UNITS TIDWMEALS SQ ; Start 05/01/18 at 17:00 Dextrose (Dextrose 50%-Water Syringe) 12.5 gm PRN Q15MIN PRN IV SEE COMMENTS; Start 05/01/18 at 16:45 Acetaminophen (Tylenol) 500 mg PRN Q6HRS PRN PO MILD PAIN / TEMP; Start at 16:45 Acetaminophen/ Codeine Phosphate (Tylenol #3) 1 tab PRN Q6HRS PRN PO MODERATE PAIN; Start 05/01/18 at 16:45 Diphenhydramine HCl (Benadryl) 25 mg PRN QHS PRN PO INSOMNIA; Start 05/01/18 at 16:45 Calcium Carbonate/ Glycine (Tums) 500 mg PRN AFTMEALHC PRN PO INDIGESTION; Start 05/01/18 at 16:45 Aspirin (Soni Aspirin) 325 mg BID PO Last administered on 05/02/18 08:32; Start 05/01/18 at 21:00 Vitamin D (Vitamin D3) 2,000 unit DAILY PO Last administered on 05/02/18 08:32 ; Start 05/02/18 at 09:00; Stop 05/02/18 at 09:00; Status DC Clopidogrel Bisulfate (Plavix) 75 mg DAILY PO Last administered on 05/02/18 08: 32; Start 05/02/18 at 09:00 Docusate Sodium (Colace) 100 mg DAILY PO Last administered on 05/02/18 08:32; Start 05/02/18 at 09:00 Acetaminophen/ Hydrocodone Bitart (Lortab 5/325) 1 tab PRN Q6HRS PRN PO MODERATE PAIN (2nd Choice); Start 05/01/18 at 16:45 Lisinopril (Prinivil) 40 mg DAILY PO Last administered on 05/02/18 08:33; Start 05/02/18 at 09:00 Morphine Sulfate (Ms Contin) 15 mg BID PO Last administered on 05/01/18at 20:53; Start 05/01/18 at 21:00; Stop 05/02/18 at 07:28; Status DC Pantoprazole Sodium (Protonix) 40 mg HS PO Last administered on 05/01/18at 20:53 ; Start 05/01/18 at 21:00 Trazodone HCl (Desyrel) 50 mg HS PO Last administered on 05/01/18 20:53; Start 05/01/18 at 21:00 Atorvastatin Calcium (Lipitor) 40 mg QHS PO Last administered on 05/01/18at 20:53 ; Start 05/01/18 at 21:00 Cyanocobalamin (Vitamin B-12) 2,500 mcg DAILY PO Last administered on 05/02/18 08:33; Start 05/02/18 at 09:00; Stop 05/02/18 at 09:00; Status DC Non-Formulary Medication (Flaxseed/ Omega3,6,9/Fatty Acid (Flax Seed Oil 1,300 Mg Softgel)) 1 each DAILY PO ; Start 05/02/18 at 09:00; Status UNV Gabapentin (Neurontin) 500 mg TID PO Last administered on 05/02/18 08:33; Start 05/02/18 at 09:00; Stop 05/02/18 at 09:00; Status DC Insulin Human Isoph/Insulin Regular (HumuLIN 70/30) 30 units DAILYWSUP SQ ; Start 05/01/18 at 18:00 Insulin Human Isoph/Insulin Regular (HumuLIN 70/30) 40 units DAILY SQ Last administered on 05/02/18 08:46; Start 05/02/18 at 09:00 Labetalol HCl (Trandate) 200 mg BID PO Last administered on 05/02/18at 08:31; Start 05/01/18 at 21:00 Non-Formulary Medication (Ubidecarenone (Coenzyme Q10)) 100 mg BID PO ; Start at 21:00; Stop 05/01/18 at 21:00; Status DC Oxycodone/ Acetaminophen (Percocet 5/325) 1 tab PRN Q4HRS PRN PO PAIN SEVERE; Start 05/01/18 at 16:45 Morphine Sulfate (Ms Contin) 15 mg [id number] PO Last administered on 2/2/19at 08:32 ; Start 05/02/18 at 07:30 Active Scripts Active Reported Trazodone Hcl 50 Mg Tablet 50 Mg PO HS Hydrocodone-Apap 5-325 (Hydrocodone Bit/Acetaminophen) 1 Each Tablet 1 Tab PO PRN Q6HRS PRN Morphine Sulfate Er (Morphine Sulfate) 15 Mg Tablet.er 15 Mg PO BID Meloxicam 15 Mg Tablet 15 Mg PO DAILY Colace (Docusate Sodium) 100 Mg Capsule 100 Mg PO DAILY Labetalol Hcl 200 Mg Tablet 200 Mg PO BID Atorvastatin Calcium 80 Mg Tablet 40 Mg PO HS Nitrostat (Nitroglycerin) 0.4 Mg Tab.subl 1 Tab SL UD Pantoprazole Sodium 40 Mg Tablet.dr 1 Tab PO HS Novolin 70-30 100 Unit/Ml Vial (Hum Insulin Nph/Reg Insulin Hm) 100 Unit/1 Ml Vial 30 Unit SQ DAILYWSUP Novolin 70-30 100 Unit/Ml Vial (Hum Insulin Nph/Reg Insulin Hm) 100 Unit/1 Ml Vial 40 Unit SQ DAILY Clopidogrel (Clopidogrel Bisulfate) 75 Mg Tablet 1 Tab PO DAILY Aspirin 325 Mg Tablet 325 Mg PO BID Vitals/I & O Vital Sign - Last 24 Hours 05/01/18 05/01/18 05/01/18 05/01/18 14:13 14:22 14:28 15:22 Temp 98.6 98.6 Pulse 72 66 68 66 Resp 18 16 12 B/P (MAP) 159/86 (110) 151/73 (99) 151/73 (99) 157/72 (100) Pulse Ox 96 96 98 98 O2 Delivery Room Air Room Air Room Air Room Air 05/01/18 05/01/18 05/01/18 05/01/18 16:17 17:17 17:38 18:06 Temp 97.9 97.9 Pulse 66 68 70 69 Resp 17 22 20 18 B/P (MAP) 177/80 (112) 168/79 (108) 153/93 (113) 161/63 (95) Pulse Ox 95 97 95 95 O2 Delivery Room Air Room Air Room Air Room Air 05/01/18 05/01/18 05/01/18 05/01/18 18:30 19:00 20:09 20:53 Temp 98.1 98.1 Pulse 64 Resp 20 B/P (MAP) 136/54 (81) Pulse Ox 96 96 O2 Delivery Room Air Room Air Room Air Room Air 05/01/18 05/01/18 05/02/18 05/02/18 20:53 23:18 00:53 03:19 Temp 98.1 97.7 98.1 97.7 Pulse 64 70 83 Resp 20 20 B/P (MAP) 136/54 119/77 (91) 137/79 (98) Pulse Ox 95 95 95 O2 Delivery Room Air Room Air Room Air 05/02/18 05/02/18 05/02/18 05/02/18 07:00 08:31 08:32 08:33 Temp 98.7 98.7 Pulse 71 71 71 Resp 18 18 B/P (MAP) 119/92 (101) 119/92 119/92 Pulse Ox 91 91 O2 Delivery Room Air Room Air Intake and Output 05/01/18 05/01/18 05/02/18 15:01 23:01 07:01 Output Total 700 ml Balance -700 ml EMIGDIO HUNTER MD May 02, 2018 10:36
[2018-05-02 11:00] VITALS: BP 151/81
--- NOTE | 2018-05-02 11:30 | PDOC2 ---
CONSULT Date of Consult Date of Consult DATE: 05/02/18 TIME: 11:28 Reason for Consult Reason for Consult: Shortness of breath Referring Physician Referring Physician: Dr. Barnett Identification/Chief Complaint Chief Complaint Shortness of breath Source Source: Chart review, Patient History of Present Illness Reason for Visit: 67-year-old male with history of coronary artery disease presented with one- week history of progressive shortness of breath, orthopnea and bilateral lower extremity edema. He claimed compliance with medications and oral salt intake. He denied any chest pain, palpitations or syncope. Past Medical History Cardiovascular: CAD, HTN, DC, Hyperlipidemia Pulmonary: No pertinent hx GI: Constipation, GERD Heme/Onc: No pertinent hx Hepatobiliary: No pertinent hx Psych: No pertinent hx Musculoskeletal: Osteoarthritis Rheumatologic: No pertinent hx Infectious disease: No pertinent hx Renal/: No pertinent hx Endocrine: Diabetes Past Surgical History Past Surgical History: No pertinent history Family History Family History: Diabetes, Heart Disease, Hypertension Social History No ALCOHOL: none Drugs: None Lives: with Family Current Problem List Problem List Problems Medical Problems: (1) JUSTICE (acute kidney injury) Status: Acute (2) CHF (congestive heart failure) Status: Acute Current Medications Current Medications Current Medications Furosemide (Lasix) 40 mg 1X ONCE IVP Last administered on 05/01/18at 16:53; Start 05/01/18 at 16:45; Stop 05/01/18 at 16:46; Status DC Insulin Human Lispro (HumaLOG) 0-9 UNITS TIDWMEALS SQ ; Start 05/01/18 at 17:00 Dextrose (Dextrose 50%-Water Syringe) 12.5 gm PRN Q15MIN PRN IV SEE COMMENTS; Start 05/01/18 at 16:45 Acetaminophen (Tylenol) 500 mg PRN Q6HRS PRN PO MILD PAIN / TEMP; Start at 16:45 Acetaminophen/ Codeine Phosphate (Tylenol #3) 1 tab PRN Q6HRS PRN PO MODERATE PAIN; Start 05/01/18 at 16:45 Diphenhydramine HCl (Benadryl) 25 mg PRN QHS PRN PO INSOMNIA; Start 05/01/18 at 16:45 Calcium Carbonate/ Glycine (Tums) 500 mg PRN AFTMEALHC PRN PO INDIGESTION; Start 05/01/18 at 16:45 Aspirin (Soni Aspirin) 325 mg BID PO Last administered on 05/02/18 08:32; Start 05/01/18 at 21:00 Vitamin D (Vitamin D3) 2,000 unit DAILY PO Last administered on 05/02/18 08:32 ; Start 05/02/18 at 09:00; Stop 05/02/18 at 09:00; Status DC Clopidogrel Bisulfate (Plavix) 75 mg DAILY PO Last administered on 05/02/18 08: 32; Start 05/02/18 at 09:00 Docusate Sodium (Colace) 100 mg DAILY PO Last administered on 05/02/18 08:32; Start 05/02/18 at 09:00 Acetaminophen/ Hydrocodone Bitart (Lortab 5/325) 1 tab PRN Q6HRS PRN PO MODERATE PAIN (2nd Choice); Start 05/01/18 at 16:45 Lisinopril (Prinivil) 40 mg DAILY PO Last administered on 05/02/18 08:33; Start 05/02/18 at 09:00 Morphine Sulfate (Ms Contin) 15 mg BID PO Last administered on 05/01/18 20:53; Start 05/01/18 at 21:00; Stop 05/02/18 at 07:28; Status DC Pantoprazole Sodium (Protonix) 40 mg HS PO Last administered on 05/01/18 20:53 ; Start 05/01/18 at 21:00 Trazodone HCl (Desyrel) 50 mg HS PO Last administered on 05/01/18 20:53; Start 05/01/18 at 21:00 Atorvastatin Calcium (Lipitor) 40 mg QHS PO Last administered on 05/01/18 20:53 ; Start 05/01/18 at 21:00 Cyanocobalamin (Vitamin B-12) 2,500 mcg DAILY PO Last administered on 05/02/18 08:33; Start 05/02/18 at 09:00; Stop 05/02/18 at 09:00; Status DC Non-Formulary Medication (Flaxseed/ Omega3,6,9/Fatty Acid (Flax Seed Oil 1,300 Mg Softgel)) 1 each DAILY PO ; Start 05/02/18 at 09:00; Status UNV Gabapentin (Neurontin) 500 mg TID PO Last administered on 2/2/19at 08:33; Start 05/02/18 at 09:00; Stop 05/02/18 at 09:00; Status DC Insulin Human Isoph/Insulin Regular (HumuLIN 70/30) 30 units DAILYWSUP SQ ; Start 05/01/18 at 18:00 Insulin Human Isoph/Insulin Regular (HumuLIN 70/30) 40 units DAILY SQ Last administered on 05/02/18at 08:46; Start 05/02/18 at 09:00 Labetalol HCl (Trandate) 200 mg BID PO Last administered on 05/02/18at 08:31; Start 05/01/18 at 21:00 Non-Formulary Medication (Ubidecarenone (Coenzyme Q10)) 100 mg BID PO ; Start at 21:00; Stop 05/01/18 at 21:00; Status DC Oxycodone/ Acetaminophen (Percocet 5/325) 1 tab PRN Q4HRS PRN PO PAIN SEVERE; Start 05/01/18 at 16:45 Morphine Sulfate (Ms Contin) 15 mg [id number] PO Last administered on 05/02/18at 08:32 ; Start 05/02/18 at 07:30 Active Scripts Active Reported Trazodone Hcl 50 Mg Tablet 50 Mg PO HS Hydrocodone-Apap 5-325 (Hydrocodone Bit/Acetaminophen) 1 Each Tablet 1 Tab PO PRN Q6HRS PRN Morphine Sulfate Er (Morphine Sulfate) 15 Mg Tablet.er 15 Mg PO BID Meloxicam 15 Mg Tablet 15 Mg PO DAILY Colace (Docusate Sodium) 100 Mg Capsule 100 Mg PO DAILY Labetalol Hcl 200 Mg Tablet 200 Mg PO BID Atorvastatin Calcium 80 Mg Tablet 40 Mg PO HS Nitrostat (Nitroglycerin) 0.4 Mg Tab.subl 1 Tab SL UD Pantoprazole Sodium 40 Mg Tablet.dr 1 Tab PO HS Novolin 70-30 100 Unit/Ml Vial (Hum Insulin Nph/Reg Insulin Hm) 100 Unit/1 Ml Vial 30 Unit SQ DAILYWSUP Novolin 70-30 100 Unit/Ml Vial (Hum Insulin Nph/Reg Insulin Hm) 100 Unit/1 Ml Vial 40 Unit SQ DAILY Clopidogrel (Clopidogrel Bisulfate) 75 Mg Tablet 1 Tab PO DAILY Aspirin 325 Mg Tablet 325 Mg PO BID Allergies Allergies: Coded Allergies: Rfftgyx-Guj-Lun Reductase Inhibitor (Verified Allergy, Intermediate, ) Worsens myalgia ROS PSYCHOLOGICAL ROS: No: Hallucinations Eyes: No Loss of vision HEENT: No: Epistaxis Respiratory: YES: Orthopnea, Shortness of breath; No: Hemoptysis Cardiovascular: yes Edema; No Palpitations Gastrointestinal: No Vomiting, No Diarrhea Genitourinary: No Hematuria Neurological: No Seizures Skin: No Rash Physical Exam General: Alert, Oriented X3 HEENT: Atraumatic Lungs: Clear to auscultation Heart: Regular rate, No murmurs Abdomen: Soft Extremities: Other (2+ pitting pedal edema) Neuro: Normal speech Psych/Mental Status: Mood NL Vitals VITALS Vital Signs Date Time Temp Pulse Resp B/P (MAP) Pulse Ox O2 Delivery O2 Flow Rate FiO2 05/02/18 08:33 71 119/92 05/02/18 08:32 18 91 Room Air 05/02/18 07:00 98.7 98.7 Labs Labs Laboratory Tests Test 05/01/18 14:30 05/01/18 17:57 05/01/18 20:29 05/02/18 07:21 White Blood Count 6.8 x10^3/uL (4.0-11.0) Red Blood Count 4.22 x10^6/uL (4.30-5.70) Hemoglobin 11.1 g/dL (13.0-17.5) Hematocrit 34.6 % (39.0-53.0) Mean Corpuscular Volume 82 fL (79-100) Mean Corpuscular Hemoglobin 26 pg (25-35) Mean Corpuscular Hemoglobin Concent 32 g/dL (31-37) Red Cell Distribution Width 14.6 % (11.5-14.5) Platelet Count 191 x10^3/uL (140-400) Neutrophils (%) (Auto) 72 % (31-73) Lymphocytes (%) (Auto) 17 % (24-48) Monocytes (%) (Auto) 9 % (0-9) Eosinophils (%) (Auto) 1 % (0-3) Basophils (%) (Auto) 1 % (0-3) Neutrophils # (Auto) 4.9 x10^3uL (1.8-7.7) Lymphocytes # (Auto) 1.2 x10^3/uL (1.0-4.8) Monocytes # (Auto) 0.6 x10^3/uL (0.0-1.1) Eosinophils # (Auto) 0.1 x10^3/uL (0.0-0.7) Basophils # (Auto) 0.0 x10^3/uL (0.0-0.2) Sodium Level 135 mmol/L (136-145) Potassium Level 4.5 mmol/L (3.5-5.1) Chloride Level 100 mmol/L (98-107) Carbon Dioxide Level 28 mmol/L (21-32) Anion Gap 7 (6-14) Blood Urea Nitrogen 32 mg/dL (8-26) Creatinine 1.5 mg/dL (0.7-1.3) Estimated GFR (Cockcroft-Gault) 46.7 BUN/Creatinine Ratio 21 (6-20) Glucose Level 144 mg/dL (70-99) Hemoglobin A1c 7.7 % (4.8-5.6) Calcium Level 9.2 mg/dL (8.5-10.1) Magnesium Level 1.9 mg/dL (1.8-2.4) Total Bilirubin 0.6 mg/dL (0.2-1.0) Aspartate Amino Transf (AST/SGOT) 41 U/L (15-37) Alanine Aminotransferase (ALT/SGPT) 57 U/L (16-63) Alkaline Phosphatase 102 U/L (46-116) Troponin I Quantitative < 0.017 ng/mL (0.000-0.055) WJ-Heh-N-Type Natriuretic Peptide 2219 pg/mL (0-124) Total Protein 6.5 g/dL (6.4-8.2) Albumin 3.9 g/dL (3.4-5.0) Albumin/Globulin Ratio 1.5 (1.0-1.7) Thyroid Stimulating Hormone (TSH) 1.757 uIU/mL (0.358-3.74) Glucose (Fingerstick) 90 mg/dL (70-99) 165 mg/dL (70-99) 149 mg/dL (70-99) Laboratory Tests Test 05/01/18 14:30 05/01/18 17:57 05/01/18 20:29 05/02/18 07:21 White Blood Count 6.8 x10^3/uL (4.0-11.0) Red Blood Count 4.22 x10^6/uL (4.30-5.70) Hemoglobin 11.1 g/dL (13.0-17.5) Hematocrit 34.6 % (39.0-53.0) Mean Corpuscular Volume 82 fL (79-100) Mean Corpuscular Hemoglobin 26 pg (25-35) Mean Corpuscular Hemoglobin Concent 32 g/dL (31-37) Red Cell Distribution Width 14.6 % (11.5-14.5) Platelet Count 191 x10^3/uL (140-400) Neutrophils (%) (Auto) 72 % (31-73) Lymphocytes (%) (Auto) 17 % (24-48) Monocytes (%) (Auto) 9 % (0-9) Eosinophils (%) (Auto) 1 % (0-3) Basophils (%) (Auto) 1 % (0-3) Neutrophils # (Auto) 4.9 x10^3uL (1.8-7.7) Lymphocytes # (Auto) 1.2 x10^3/uL (1.0-4.8) Monocytes # (Auto) 0.6 x10^3/uL (0.0-1.1) Eosinophils # (Auto) 0.1 x10^3/uL (0.0-0.7) Basophils # (Auto) 0.0 x10^3/uL (0.0-0.2) Sodium Level 135 mmol/L (136-145) Potassium Level 4.5 mmol/L (3.5-5.1) Chloride Level 100 mmol/L (98-107) Carbon Dioxide Level 28 mmol/L (21-32) Anion Gap 7 (6-14) Blood Urea Nitrogen 32 mg/dL (8-26) Creatinine 1.5 mg/dL (0.7-1.3) Estimated GFR (Cockcroft-Gault) 46.7 BUN/Creatinine Ratio 21 (6-20) Glucose Level 144 mg/dL (70-99) Hemoglobin A1c 7.7 % (4.8-5.6) Calcium Level 9.2 mg/dL (8.5-10.1) Magnesium Level 1.9 mg/dL (1.8-2.4) Total Bilirubin 0.6 mg/dL (0.2-1.0) Aspartate Amino Transf (AST/SGOT) 41 U/L (15-37) Alanine Aminotransferase (ALT/SGPT) 57 U/L (16-63) Alkaline Phosphatase 102 U/L (46-116) Troponin I Quantitative < 0.017 ng/mL (0.000-0.055) HQ-Vyu-B-Type Natriuretic Peptide 2219 pg/mL (0-124) Total Protein 6.5 g/dL (6.4-8.2) Albumin 3.9 g/dL (3.4-5.0) Albumin/Globulin Ratio 1.5 (1.0-1.7) Thyroid Stimulating Hormone (TSH) 1.757 uIU/mL (0.358-3.74) Glucose (Fingerstick) 90 mg/dL (70-99) 165 mg/dL (70-99) 149 mg/dL (70-99) Assessment/Plan Assessment/Plan 1. Acute on chronic diastolic heart failure. Recent 2-D echo in October 2017 showed LVEF 55%. Continue diuresis with Lasix. 2. Coronary artery disease s/p PCI/stents to LAD/RCA/OM in the past with last cardiac catheterization showing chronic total occlusion of RCA with left-to- right collaterals. He is chest pain-free. We will consider ischemic evaluation once better compensated. Continue current secondary prevention measures. 3. Hypertension: Controlled 4. Hyperlipidemia: Continue statin therapy 5. Diabetes mellitus type 2: Treat per IM Thank you for your consultation DEMARIO PHOENIX MD May 02, 2018 11:30
[2018-05-02 15:00] VITALS: BP 144/67
[2018-05-02] MEDS: HYDROcodone/APAP 5/325MG 1 TAB TABLET PO PRN (15:54)
[2018-05-02] MEDS: FUROSEMIDE 40 MG/4 ML VIAL. IVP SCH (15:55)
[2018-05-02] MEDS: FLUTICASONE 50MCG/NASAL SPRAY 16GM BOTTLE. NS SCH (17:29)
[2018-05-02 19:00] VITALS: BP 144/65
[2018-05-02] MEDS: traZODone 50 MG TABLET. PO SCH (20:18)
[2018-05-02] MEDS: PANTOPRAZOLE 40 MG TABLET.DR. PO SCH (20:18)
[2018-05-02] MEDS: ATORVASTATIN CALCIUM 40 MG TABLET. PO SCH (20:28)
--- NOTE | 2018-05-02 20:39 | RAD ---
Bilateral lower extremity venous Doppler dated 05/02/2018. No comparison available. Clinical data indication: Edema. FINDINGS: Grayscale, color-flow and spectral waveform analysis performed to include the deep venous system of both lower extremity. Normal compressibility, phasicity and augmentation of flow throughout. No filling defects are seen. impression: No evidence of lower extremity deep vein thrombosis. Electronically signed by: Marciano Keen MD (05/02/2018 8:34 PM) [facility]
[2018-05-02 23:00] VITALS: BP 139/70
[2018-05-03 03:00] VITALS: BP 150/69
[2018-05-03] MEDS: MORPHINE ER 15 MG TABLET.ER PO SCH (05:47)
[2018-05-03 06:28] LABS: BASO % 0 % (0-3); EOS # 0.1 x10^3/uL (0.0-0.7); EOS % 1 % (0-3); HEMATOCRIT 39.7 % (39.0-53.0); HEMOGLOBIN 12.8 g/dL (13.0-17.5); LYMPH # 1.7 x10^3/uL (1.0-4.8); LYMPH % 20 % (24-48); MEAN CORPUSCULAR HEMOGLOBIN 26 pg (25-35); MEAN CORPUSCULAR HGB CONC 32 g/dL (31-37); MEAN CORPUSCULAR VOLUME 82 fL (79-100); MONO % 11 % (0-9); NEUT # 5.8 x10^3uL (1.8-7.7); NEUT % 67 % (31-73); PLATELET COUNT 252 x10^3/uL (140-400); RED BLOOD COUNT 4.87 x10^6/uL (4.30-5.70); RED CELL DISTRIBUTION WIDTH 14.5 % (11.5-14.5); WHITE BLOOD COUNT 8.7 x10^3/uL (4.0-11.0)
[2018-05-03 06:39] LABS: ALBUMIN 3.9 g/dL (3.4-5.0); ALBUMIN/GLOBULIN RATIO 1.4 (1.0-1.7); CALCIUM 9.2 mg/dL (8.5-10.1); CREATININE 1.3 mg/dL (0.7-1.3); GFR 55.1; POTASSIUM 3.5 mmol/L (3.5-5.1); TOTAL BILIRUBIN 0.6 mg/dL (0.2-1.0); TOTAL PROTEIN 6.7 g/dL (6.4-8.2)
[2018-05-03 07:00] VITALS: BP_SYST 141; BP_SYST 144; BP_DIAS 69; BP_DIAS 81
[2018-05-03] MEDS: INSULIN LISPRO 300 UNITS/3 ML INSULN.PEN. SQ SCH ×2 (08:00→12:35)
[2018-05-03] MEDS: LABETALOL HCL 200 MG TABLET PO SCH (08:53)
[2018-05-03] MEDS: CLOPIDOGREL BISULFATE 75 MG TABLET PO SCH (08:53)
[2018-05-03] MEDS: DOCUSATE SODIUM 100 MG CAPSULE. PO SCH (08:53)
[2018-05-03] MEDS: FUROSEMIDE 40 MG/4 ML VIAL. IVP SCH ×2 (08:53→12:37)
[2018-05-03] MEDS: ASPIRIN 325 MG TABLET PO SCH (08:53)
[2018-05-03] MEDS: LISINOPRIL 20 MG TABLET PO SCH (08:54)
[2018-05-03] MEDS: FLUTICASONE 50MCG/NASAL SPRAY 16GM BOTTLE. NS SCH (08:54)
[2018-05-03] MEDS: INSULIN NPH/REG INSULIN 70/30 300 UNITS/3 ML INSULN.PEN. SQ SCH (08:59)
[2018-05-03] MEDS: HYDROcodone/APAP 5/325MG 1 TAB TABLET PO PRN (09:00)
--- NOTE | 2018-05-03 09:48 | PDOC ---
PROGRESS NOTES Subjective Subjective Patient feeling better. Dyspnea and edema improved. Objective Objective Vital Signs Date Time Temp Pulse Resp B/P (MAP) Pulse Ox O2 Delivery O2 Flow Rate FiO2 05/03/18 09:00 18 Room Air 05/03/18 08:54 70 144/81 05/03/18 07:00 97.8 95 97.8 Intake and Output 05/03/18 07:01 Intake Total 800 ml Balance 800 ml Intake Oral 800 ml # Voids 7 Physical Exam Abdomen: Soft Heart: Regular rate, No murmurs Extremities: Other (2+ pitting pedal edema) General: Alert, Oriented X3 HEENT: Atraumatic Lungs: Clear to auscultation MUSCULOSKELETAL: No joint tenderness, No deformity, No swelling Neuro: Normal speech Psych/Mental Status: Mood NL Skin: No rashes, No breakdown, No significant lesion Assessment Assessment 1. Acute on chronic diastolic heart failure. Recent 2-D echo in October 2017 showed LVEF 55%. Symptoms improved with diuresis with Lasix. 2. Coronary artery disease s/p PCI/stents to LAD/RCA/OM in the past with last cardiac catheterization showing chronic total occlusion of RCA with left-to- right collaterals. He is chest pain-free. We will consider ischemic evaluation once better compensated, probably as outpatient. Continue current secondary prevention measures. 3. Hypertension: Controlled 4. Hyperlipidemia: Continue statin therapy 5. Diabetes mellitus type 2: Treat per IM Plan Plan of Care Problems Medical Problems: (1) JUSTIEC (acute kidney injury) Status: Acute (2) CHF (congestive heart failure) Status: Acute Comment Review of Relevant I have reviewed the following items kelsie (where applicable) has been applied. Labs Laboratory Tests Test 05/02/18 11:29 05/02/18 17:08 05/02/18 20:42 05/03/18 05:11 Glucose (Fingerstick) 201 mg/dL (70-99) 137 mg/dL (70-99) 78 mg/dL (70-99) White Blood Count 8.7 x10^3/uL (4.0-11.0) Red Blood Count 4.87 x10^6/uL (4.30-5.70) Hemoglobin 12.8 g/dL (13.0-17.5) Hematocrit 39.7 % (39.0-53.0) Mean Corpuscular Volume 82 fL (79-100) Mean Corpuscular Hemoglobin 26 pg (25-35) Mean Corpuscular Hemoglobin Concent 32 g/dL (31-37) Red Cell Distribution Width 14.5 % (11.5-14.5) Platelet Count 252 x10^3/uL (140-400) Neutrophils (%) (Auto) 67 % (31-73) Lymphocytes (%) (Auto) 20 % (24-48) Monocytes (%) (Auto) 11 % (0-9) Eosinophils (%) (Auto) 1 % (0-3) Basophils (%) (Auto) 0 % (0-3) Neutrophils # (Auto) 5.8 x10^3uL (1.8-7.7) Lymphocytes # (Auto) 1.7 x10^3/uL (1.0-4.8) Monocytes # (Auto) 1.0 x10^3/uL (0.0-1.1) Eosinophils # (Auto) 0.1 x10^3/uL (0.0-0.7) Basophils # (Auto) 0.0 x10^3/uL (0.0-0.2) Sodium Level 141 mmol/L (136-145) Potassium Level 3.5 mmol/L (3.5-5.1) Chloride Level 102 mmol/L (98-107) Carbon Dioxide Level 27 mmol/L (21-32) Anion Gap 12 (6-14) Blood Urea Nitrogen 21 mg/dL (8-26) Creatinine 1.3 mg/dL (0.7-1.3) Estimated GFR (Cockcroft-Gault) 55.1 BUN/Creatinine Ratio 16 (6-20) Glucose Level 113 mg/dL (70-99) Calcium Level 9.2 mg/dL (8.5-10.1) Total Bilirubin 0.6 mg/dL (0.2-1.0) Aspartate Amino Transf (AST/SGOT) 23 U/L (15-37) Alanine Aminotransferase (ALT/SGPT) 47 U/L (16-63) Alkaline Phosphatase 92 U/L (46-116) Total Protein 6.7 g/dL (6.4-8.2) Albumin 3.9 g/dL (3.4-5.0) Albumin/Globulin Ratio 1.4 (1.0-1.7) Test 05/03/18 07:20 Glucose (Fingerstick) 142 mg/dL (70-99) Medications Current Medications Fluticasone Propionate (Flonase) 2 spray DAILY NS Last administered on at 08:54; Start 05/02/18 at 15:35 Furosemide (Lasix) 40 mg [id number] IVP Last administered on 05/03/18at 08:53; Start 05/02/18 at 14:00 Vitals/I & O Vital Sign - Last 24 Hours 05/02/18 05/02/18 05/02/18 05/02/18 11:00 12:32 15:00 15:54 Temp 97.8 98.0 97.8 98.0 Pulse 73 66 Resp 18 18 18 B/P (MAP) 151/81 (104) 144/67 (92) Pulse Ox 96 96 96 O2 Delivery Room Air Room Air Room Air 05/02/18 05/02/18 05/02/18 05/02/18 16:54 17:30 19:00 20:19 Temp 98.1 98.1 Pulse 61 61 Resp 18 18 20 B/P (MAP) 144/65 (91) 144/65 Pulse Ox 96 96 94 O2 Delivery Room Air Room Air Room Air 05/02/18 05/02/18 05/02/18 05/03/18 20:31 21:45 23:00 03:00 Temp 98.1 98.1 98.1 98.1 Pulse 64 54 Resp 20 18 18 B/P (MAP) 139/70 (93) 150/69 (96) Pulse Ox 93 95 O2 Delivery Room Air Room Air Room Air Room Air 05/03/18 05/03/18 05/03/18 05/03/18 05:47 07:00 08:53 08:54 Temp 97.8 97.8 Pulse 70 70 70 Resp 20 18 B/P (MAP) 144/81 (102) 144/81 144/81 Pulse Ox 95 O2 Delivery Room Air Room Air 05/03/18 09:00 Resp 18 O2 Delivery Room Air Intake and Output 05/02/18 05/02/18 05/03/18 15:01 23:01 07:01 Intake Total 360 ml 440 ml Balance 360 ml 440 ml DEMARIO PHOENIX MD May 03, 2018 09:48
--- NOTE | 2018-05-03 09:59 | PDOC ---
PROGRESS NOTES History of Present Illness History of Present Illness Assessment/Plan Assessment/Plan CHF exacerbation- mild pulmonary hypertension. Leg edema, acute onset sec to above History of CAD with 2 stents Dyslipidemia Diabetes on NPH twice a day JUSTICE-the baseline creatinine 0.9 extreme morbid obesity Symptoms improved with diuresis Plan: Admit cvc 2 mN Lasix iv Cards following Check TSH home meds including NPH plus sliding scale insulin before meals at bedtime echo hgb a1c BMP Vitals Vitals Vital Signs Date Time Temp Pulse Resp B/P (MAP) Pulse Ox O2 Delivery O2 Flow Rate FiO2 05/03/18 09:47 18 95 Room Air 05/03/18 08:54 70 144/81 05/03/18 07:00 97.8 97.8 Physical Exam General: Alert, Oriented X3 Heart: Regular rate, No murmurs Lungs: Clear Abdomen: Soft Extremities: Other (2+ pitting pedal edema) Skin: No rashes, No breakdown, No significant lesion Labs LABS Bilateral lower extremity venous Doppler dated 05/02/2018. No comparison available. Clinical data indication: Edema. FINDINGS: Grayscale, color-flow and spectral waveform analysis performed to include the deep venous system of both lower extremity. Normal compressibility, phasicity and augmentation of flow throughout. No filling defects are seen. impression: No evidence of lower extremity deep vein thrombosis. Electronically signed by: Marciano eKen MD (05/02/2018 8:34 PM) [facility] DICTATED and SIGNED BY: MARCIANO KEEN MD DATE: 05/02/182033 Laboratory Tests Test 05/02/18 11:29 05/02/18 17:08 05/02/18 20:42 05/03/18 05:11 Glucose (Fingerstick) 201 mg/dL (70-99) 137 mg/dL (70-99) 78 mg/dL (70-99) White Blood Count 8.7 x10^3/uL (4.0-11.0) Red Blood Count 4.87 x10^6/uL (4.30-5.70) Hemoglobin 12.8 g/dL (13.0-17.5) Hematocrit 39.7 % (39.0-53.0) Mean Corpuscular Volume 82 fL (79-100) Mean Corpuscular Hemoglobin 26 pg (25-35) Mean Corpuscular Hemoglobin Concent 32 g/dL (31-37) Red Cell Distribution Width 14.5 % (11.5-14.5) Platelet Count 252 x10^3/uL (140-400) Neutrophils (%) (Auto) 67 % (31-73) Lymphocytes (%) (Auto) 20 % (24-48) Monocytes (%) (Auto) 11 % (0-9) Eosinophils (%) (Auto) 1 % (0-3) Basophils (%) (Auto) 0 % (0-3) Neutrophils # (Auto) 5.8 x10^3uL (1.8-7.7) Lymphocytes # (Auto) 1.7 x10^3/uL (1.0-4.8) Monocytes # (Auto) 1.0 x10^3/uL (0.0-1.1) Eosinophils # (Auto) 0.1 x10^3/uL (0.0-0.7) Basophils # (Auto) 0.0 x10^3/uL (0.0-0.2) Sodium Level 141 mmol/L (136-145) Potassium Level 3.5 mmol/L (3.5-5.1) Chloride Level 102 mmol/L (98-107) Carbon Dioxide Level 27 mmol/L (21-32) Anion Gap 12 (6-14) Blood Urea Nitrogen 21 mg/dL (8-26) Creatinine 1.3 mg/dL (0.7-1.3) Estimated GFR (Cockcroft-Gault) 55.1 BUN/Creatinine Ratio 16 (6-20) Glucose Level 113 mg/dL (70-99) Calcium Level 9.2 mg/dL (8.5-10.1) Total Bilirubin 0.6 mg/dL (0.2-1.0) Aspartate Amino Transf (AST/SGOT) 23 U/L (15-37) Alanine Aminotransferase (ALT/SGPT) 47 U/L (16-63) Alkaline Phosphatase 92 U/L (46-116) Total Protein 6.7 g/dL (6.4-8.2) Albumin 3.9 g/dL (3.4-5.0) Albumin/Globulin Ratio 1.4 (1.0-1.7) Test 05/03/18 07:20 Glucose (Fingerstick) 142 mg/dL (70-99) Assessment and Plan Assessmemt and Plan Problems Medical Problems: (1) JUSTIEC (acute kidney injury) Status: Acute (2) CHF (congestive heart failure) Status: Acute Comment Review of Relevant I have reviewed the following items kelsie (where applicable) has been applied. Labs Laboratory Tests Test 05/01/18 14:30 05/01/18 17:57 05/01/18 20:29 05/02/18 07:21 White Blood Count 6.8 x10^3/uL (4.0-11.0) Red Blood Count 4.22 x10^6/uL (4.30-5.70) Hemoglobin 11.1 g/dL (13.0-17.5) Hematocrit 34.6 % (39.0-53.0) Mean Corpuscular Volume 82 fL (79-100) Mean Corpuscular Hemoglobin 26 pg (25-35) Mean Corpuscular Hemoglobin Concent 32 g/dL (31-37) Red Cell Distribution Width 14.6 % (11.5-14.5) Platelet Count 191 x10^3/uL (140-400) Neutrophils (%) (Auto) 72 % (31-73) Lymphocytes (%) (Auto) 17 % (24-48) Monocytes (%) (Auto) 9 % (0-9) Eosinophils (%) (Auto) 1 % (0-3) Basophils (%) (Auto) 1 % (0-3) Neutrophils # (Auto) 4.9 x10^3uL (1.8-7.7) Lymphocytes # (Auto) 1.2 x10^3/uL (1.0-4.8) Monocytes # (Auto) 0.6 x10^3/uL (0.0-1.1) Eosinophils # (Auto) 0.1 x10^3/uL (0.0-0.7) Basophils # (Auto) 0.0 x10^3/uL (0.0-0.2) Sodium Level 135 mmol/L (136-145) Potassium Level 4.5 mmol/L (3.5-5.1) Chloride Level 100 mmol/L (98-107) Carbon Dioxide Level 28 mmol/L (21-32) Anion Gap 7 (6-14) Blood Urea Nitrogen 32 mg/dL (8-26) Creatinine 1.5 mg/dL (0.7-1.3) Estimated GFR (Cockcroft-Gault) 46.7 BUN/Creatinine Ratio 21 (6-20) Glucose Level 144 mg/dL (70-99) Hemoglobin A1c 7.7 % (4.8-5.6) Calcium Level 9.2 mg/dL (8.5-10.1) Magnesium Level 1.9 mg/dL (1.8-2.4) Total Bilirubin 0.6 mg/dL (0.2-1.0) Aspartate Amino Transf (AST/SGOT) 41 U/L (15-37) Alanine Aminotransferase (ALT/SGPT) 57 U/L (16-63) Alkaline Phosphatase 102 U/L (46-116) Troponin I Quantitative < 0.017 ng/mL (0.000-0.055) QU-Rpc-U-Type Natriuretic Peptide 2219 pg/mL (0-124) Total Protein 6.5 g/dL (6.4-8.2) Albumin 3.9 g/dL (3.4-5.0) Albumin/Globulin Ratio 1.5 (1.0-1.7) Thyroid Stimulating Hormone (TSH) 1.757 uIU/mL (0.358-3.74) Glucose (Fingerstick) 90 mg/dL (70-99) 165 mg/dL (70-99) 149 mg/dL (70-99) Test 05/02/18 11:29 05/02/18 17:08 05/02/18 20:42 05/03/18 05:11 Glucose (Fingerstick) 201 mg/dL (70-99) 137 mg/dL (70-99) 78 mg/dL (70-99) White Blood Count 8.7 x10^3/uL (4.0-11.0) Red Blood Count 4.87 x10^6/uL (4.30-5.70) Hemoglobin 12.8 g/dL (13.0-17.5) Hematocrit 39.7 % (39.0-53.0) Mean Corpuscular Volume 82 fL (79-100) Mean Corpuscular Hemoglobin 26 pg (25-35) Mean Corpuscular Hemoglobin Concent 32 g/dL (31-37) Red Cell Distribution Width 14.5 % (11.5-14.5) Platelet Count 252 x10^3/uL (140-400) Neutrophils (%) (Auto) 67 % (31-73) Lymphocytes (%) (Auto) 20 % (24-48) Monocytes (%) (Auto) 11 % (0-9) Eosinophils (%) (Auto) 1 % (0-3) Basophils (%) (Auto) 0 % (0-3) Neutrophils # (Auto) 5.8 x10^3uL (1.8-7.7) Lymphocytes # (Auto) 1.7 x10^3/uL (1.0-4.8) Monocytes # (Auto) 1.0 x10^3/uL (0.0-1.1) Eosinophils # (Auto) 0.1 x10^3/uL (0.0-0.7) Basophils # (Auto) 0.0 x10^3/uL (0.0-0.2) Sodium Level 141 mmol/L (136-145) Potassium Level 3.5 mmol/L (3.5-5.1) Chloride Level 102 mmol/L (98-107) Carbon Dioxide Level 27 mmol/L (21-32) Anion Gap 12 (6-14) Blood Urea Nitrogen 21 mg/dL (8-26) Creatinine 1.3 mg/dL (0.7-1.3) Estimated GFR (Cockcroft-Gault) 55.1 BUN/Creatinine Ratio 16 (6-20) Glucose Level 113 mg/dL (70-99) Calcium Level 9.2 mg/dL (8.5-10.1) Total Bilirubin 0.6 mg/dL (0.2-1.0) Aspartate Amino Transf (AST/SGOT) 23 U/L (15-37) Alanine Aminotransferase (ALT/SGPT) 47 U/L (16-63) Alkaline Phosphatase 92 U/L (46-116) Total Protein 6.7 g/dL (6.4-8.2) Albumin 3.9 g/dL (3.4-5.0) Albumin/Globulin Ratio 1.4 (1.0-1.7) Test 05/03/18 07:20 Glucose (Fingerstick) 142 mg/dL (70-99) Laboratory Tests Test 05/02/18 11:29 05/02/18 17:08 05/02/18 20:42 05/03/18 05:11 Glucose (Fingerstick) 201 mg/dL (70-99) 137 mg/dL (70-99) 78 mg/dL (70-99) White Blood Count 8.7 x10^3/uL (4.0-11.0) Red Blood Count 4.87 x10^6/uL (4.30-5.70) Hemoglobin 12.8 g/dL (13.0-17.5) Hematocrit 39.7 % (39.0-53.0) Mean Corpuscular Volume 82 fL (79-100) Mean Corpuscular Hemoglobin 26 pg (25-35) Mean Corpuscular Hemoglobin Concent 32 g/dL (31-37) Red Cell Distribution Width 14.5 % (11.5-14.5) Platelet Count 252 x10^3/uL (140-400) Neutrophils (%) (Auto) 67 % (31-73) Lymphocytes (%) (Auto) 20 % (24-48) Monocytes (%) (Auto) 11 % (0-9) Eosinophils (%) (Auto) 1 % (0-3) Basophils (%) (Auto) 0 % (0-3) Neutrophils # (Auto) 5.8 x10^3uL (1.8-7.7) Lymphocytes # (Auto) 1.7 x10^3/uL (1.0-4.8) Monocytes # (Auto) 1.0 x10^3/uL (0.0-1.1) Eosinophils # (Auto) 0.1 x10^3/uL (0.0-0.7) Basophils # (Auto) 0.0 x10^3/uL (0.0-0.2) Sodium Level 141 mmol/L (136-145) Potassium Level 3.5 mmol/L (3.5-5.1) Chloride Level 102 mmol/L (98-107) Carbon Dioxide Level 27 mmol/L (21-32) Anion Gap 12 (6-14) Blood Urea Nitrogen 21 mg/dL (8-26) Creatinine 1.3 mg/dL (0.7-1.3) Estimated GFR (Cockcroft-Gault) 55.1 BUN/Creatinine Ratio 16 (6-20) Glucose Level 113 mg/dL (70-99) Calcium Level 9.2 mg/dL (8.5-10.1) Total Bilirubin 0.6 mg/dL (0.2-1.0) Aspartate Amino Transf (AST/SGOT) 23 U/L (15-37) Alanine Aminotransferase (ALT/SGPT) 47 U/L (16-63) Alkaline Phosphatase 92 U/L (46-116) Total Protein 6.7 g/dL (6.4-8.2) Albumin 3.9 g/dL (3.4-5.0) Albumin/Globulin Ratio 1.4 (1.0-1.7) Test 05/03/18 07:20 Glucose (Fingerstick) 142 mg/dL (70-99) Medications Current Medications Furosemide (Lasix) 40 mg 1X ONCE IVP Last administered on 05/01/18at 16:53; Start 05/01/18 at 16:45; Stop 05/01/18 at 16:46; Status DC Insulin Human Lispro (HumaLOG) 0-9 UNITS TIDWMEALS SQ Last administered on at 13:17; Start 05/01/18 at 17:00 Dextrose (Dextrose 50%-Water Syringe) 12.5 gm PRN Q15MIN PRN IV SEE COMMENTS; Start 05/01/18 at 16:45 Acetaminophen (Tylenol) 500 mg PRN Q6HRS PRN PO MILD PAIN / TEMP; Start at 16:45 Acetaminophen/ Codeine Phosphate (Tylenol #3) 1 tab PRN Q6HRS PRN PO MODERATE PAIN; Start 05/01/18 at 16:45 Diphenhydramine HCl (Benadryl) 25 mg PRN QHS PRN PO INSOMNIA; Start 05/01/18 at 16:45 Calcium Carbonate/ Glycine (Tums) 500 mg PRN AFTMEALHC PRN PO INDIGESTION; Start 05/01/18 at 16:45 Aspirin (Soni Aspirin) 325 mg BID PO Last administered on 05/03/18at 08:53; Start 05/01/18 at 21:00 Vitamin D (Vitamin D3) 2,000 unit DAILY PO Last administered on 05/02/18at 08:32 ; Start 05/02/18 at 09:00; Stop 05/02/18 at 09:00; Status DC Clopidogrel Bisulfate (Plavix) 75 mg DAILY PO Last administered on 2/3/19at 08: 53; Start 05/02/18 at 09:00 Docusate Sodium (Colace) 100 mg DAILY PO Last administered on 05/03/18 08:53; Start 05/02/18 at 09:00 Acetaminophen/ Hydrocodone Bitart (Lortab 5/325) 1 tab PRN Q6HRS PRN PO MODERATE PAIN (2nd Choice) Last administered on 05/03/18 09:00; Start 05/01/18 at 16:45 Lisinopril (Prinivil) 40 mg DAILY PO Last administered on 05/03/18 08:54; Start 05/02/18 at 09:00 Morphine Sulfate (Ms Contin) 15 mg BID PO Last administered on 05/01/18 20:53; Start 05/01/18 at 21:00; Stop 05/02/18 at 07:28; Status DC Pantoprazole Sodium (Protonix) 40 mg HS PO Last administered on 05/02/18 20:18 ; Start 05/01/18 at 21:00 Trazodone HCl (Desyrel) 50 mg HS PO Last administered on 05/02/18 20:18; Start 05/01/18 at 21:00 Atorvastatin Calcium (Lipitor) 40 mg QHS PO Last administered on 05/02/18 20:28 ; Start 05/01/18 at 21:00 Cyanocobalamin (Vitamin B-12) 2,500 mcg DAILY PO Last administered on 05/02/18 08:33; Start 05/02/18 at 09:00; Stop 05/02/18 at 09:00; Status DC Non-Formulary Medication (Flaxseed/ Omega3,6,9/Fatty Acid (Flax Seed Oil 1,300 Mg Softgel)) 1 each DAILY PO ; Start 05/02/18 at 09:00; Status UNV Gabapentin (Neurontin) 500 mg TID PO Last administered on 05/02/18 08:33; Start 05/02/18 at 09:00; Stop 05/02/18 at 09:00; Status DC Insulin Human Isoph/Insulin Regular (HumuLIN 70/30) 30 units DAILYWSUP SQ Last administered on 05/02/18 17:36; Start 05/01/18 at 18:00 Insulin Human Isoph/Insulin Regular (HumuLIN 70/30) 40 units DAILY SQ Last administered on 05/03/18at 08:59; Start 05/02/18 at 09:00 Labetalol HCl (Trandate) 200 mg BID PO Last administered on 05/03/18at 08:53; Start 05/01/18 at 21:00 Non-Formulary Medication (Ubidecarenone (Coenzyme Q10)) 100 mg BID PO ; Start at 21:00; Stop 05/01/18 at 21:00; Status DC Oxycodone/ Acetaminophen (Percocet 5/325) 1 tab PRN Q4HRS PRN PO PAIN SEVERE; Start 05/01/18 at 16:45 Morphine Sulfate (Ms Contin) 15 mg [id number] PO Last administered on 05/03/18at 05:47 ; Start 05/02/18 at 07:30 Furosemide (Lasix) 40 mg [id number] IVP Last administered on 05/03/18at 08:53; Start 05/02/18 at 14:00 Fluticasone Propionate (Flonase) 2 spray DAILY NS Last administered on at 08:54; Start 05/02/18 at 15:35 Active Scripts Active Reported Trazodone Hcl 50 Mg Tablet 50 Mg PO HS Hydrocodone-Apap 5-325 (Hydrocodone Bit/Acetaminophen) 1 Each Tablet 1 Tab PO PRN Q6HRS PRN Morphine Sulfate Er (Morphine Sulfate) 15 Mg Tablet.er 15 Mg PO BID Meloxicam 15 Mg Tablet 15 Mg PO DAILY Colace (Docusate Sodium) 100 Mg Capsule 100 Mg PO DAILY Labetalol Hcl 200 Mg Tablet 200 Mg PO BID Atorvastatin Calcium 80 Mg Tablet 40 Mg PO HS Nitrostat (Nitroglycerin) 0.4 Mg Tab.subl 1 Tab SL UD Pantoprazole Sodium 40 Mg Tablet.dr 1 Tab PO HS Novolin 70-30 100 Unit/Ml Vial (Hum Insulin Nph/Reg Insulin Hm) 100 Unit/1 Ml Vial 30 Unit SQ DAILYWSUP Novolin 70-30 100 Unit/Ml Vial (Hum Insulin Nph/Reg Insulin Hm) 100 Unit/1 Ml Vial 40 Unit SQ DAILY Clopidogrel (Clopidogrel Bisulfate) 75 Mg Tablet 1 Tab PO DAILY Aspirin 325 Mg Tablet 325 Mg PO BID Vitals/I & O Vital Sign - Last 24 Hours 05/02/18 05/02/18 05/02/1805/02/19 11:00 15:00 15:54 17:30 Temp 97.8 98.0 97.8 98.0 Pulse 73 66 Resp 18 18 18 18 B/P (MAP) 151/81 (104) 144/67 (92) Pulse Ox 96 96 96 O2 Delivery Room Air Room Air Room Air Room Air 05/02/18 05/02/18 05/02/18 05/02/18 19:00 20:19 20:31 23:00 Temp 98.1 98.1 98.1 98.1 Pulse 61 61 64 Resp 20 18 B/P (MAP) 144/65 (91) 144/65 139/70 (93) Pulse Ox 94 93 O2 Delivery Room Air Room Air Room Air 05/03/18 05/03/18 05/03/18 05/03/18 03:00 05:47 07:00 08:53 Temp 98.1 97.8 98.1 97.8 Pulse 54 70 70 Resp 18 20 18 B/P (MAP) 150/69 (96) 144/81 (102) 144/81 Pulse Ox 95 95 O2 Delivery Room Air Room Air Room Air 05/03/18 05/03/18 05/03/18 05/03/18 08:54 09:00 09:47 09:47 Pulse 70 Resp 18 18 18 B/P (MAP) 144/81 Pulse Ox 95 95 O2 Delivery Room Air Room Air Room Air Intake and Output 05/02/18 05/02/18 05/03/18 15:01 23:01 07:01 Intake Total 360 ml 440 ml Balance 360 ml 440 ml EMIGDIO HUNTER MD May 03, 2018 09:59
[2018-05-03 10:52] VITALS: BP 133/64
--- NOTE | 2018-05-03 12:38 | PDOC3 ---
Discharge Summary Date of Admission: May 01, 2018 Date of Discharge: May 03, 2018 Follow-Up: 3-5 days Admitting Diagnosis comment: DISCHARGE DX Assessment/Plan CHF exacerbation- mild pulmonary hypertension. Leg edema, acute diastolic CHF History of CAD with 2 stents Dyslipidemia Diabetes on NPH twice a day JUSTICE-the baseline creatinine 0.9 morbid obesity Symptoms improved with diuresis , Admits he has been eating [employer] often Plan: Admit cvc 2 mN Lasix iv Cards following ok with d/c today Check TSH home meds including NPH plus sliding scale insulin before meals at bedtime echo hgb a1c BMP Vitals Vitals Vital Signs Date Time Temp Pulse Resp B/P (MAP) Pulse Ox O2 Delivery O2 Flow Rate FiO2 05/03/18 09:47 18 95 Room Air 05/03/18 08:54 70 144/81 05/03/18 07:00 97.8 97.8 Physical Exam General: Alert, Oriented X3 Heart: Regular rate, No murmurs Lungs: Clear Abdomen: Soft Extremities: Other (1+ pitting pedal edema) Skin: No rashes, No breakdown, No significant lesion Labs LABS Bilateral lower extremity venous Doppler dated 05/02/2018. No comparison available. Clinical data indication: Edema. FINDINGS: Grayscale, color-flow and spectral waveform analysis performed to include the deep venous system of both lower extremity. Normal compressibility, phasicity and augmentation of flow throughout. No filling defects are seen. impression: No evidence of lower extremity deep vein thrombosis. Electronically signed by: Marciano Keen MD (05/02/2018 8:34 PM) [facility] [place] FINAL DIAGNOSIS Problems Medical Problems: (1) JUSTICE (acute kidney injury) Status: Acute (2) CHF (congestive heart failure) Status: Acute Brief Hospital Course Mr. Edge is a 67 old [sex] who presented with [acute chf ] CONDITION AT DISCHARGE: Improved Discharge Medications Current Medications Furosemide (Lasix) 40 mg 1X ONCE IVP Last administered on 05/01/18at 16:53; Start 05/01/18 at 16:45; Stop 05/01/18 at 16:46; Status DC Insulin Human Lispro (HumaLOG) 0-9 UNITS TIDWMEALS SQ Last administered on at 13:17; Start 05/01/18 at 17:00 Dextrose (Dextrose 50%-Water Syringe) 12.5 gm PRN Q15MIN PRN IV SEE COMMENTS; Start 05/01/18 at 16:45 Acetaminophen (Tylenol) 500 mg PRN Q6HRS PRN PO MILD PAIN / TEMP; Start at 16:45 Acetaminophen/ Codeine Phosphate (Tylenol #3) 1 tab PRN Q6HRS PRN PO MODERATE PAIN; Start 05/01/18 at 16:45 Diphenhydramine HCl (Benadryl) 25 mg PRN QHS PRN PO INSOMNIA; Start 05/01/18 at 16:45 Calcium Carbonate/ Glycine (Tums) 500 mg PRN AFTMEALHC PRN PO INDIGESTION; Start 05/01/18 at 16:45 Aspirin (Soni Aspirin) 325 mg BID PO Last administered on 05/03/18 08:53; Start 05/01/18 at 21:00 Vitamin D (Vitamin D3) 2,000 unit DAILY PO Last administered on 05/02/18 08:32 ; Start 05/02/18 at 09:00; Stop 05/02/18 at 09:00; Status DC Clopidogrel Bisulfate (Plavix) 75 mg DAILY PO Last administered on 05/03/18 08: 53; Start 05/02/18 at 09:00 Docusate Sodium (Colace) 100 mg DAILY PO Last administered on 05/03/18 08:53; Start 05/02/18 at 09:00 Acetaminophen/ Hydrocodone Bitart (Lortab 5/325) 1 tab PRN Q6HRS PRN PO MODERATE PAIN (2nd Choice) Last administered on 05/03/18 09:00; Start 05/01/18 at 16:45 Lisinopril (Prinivil) 40 mg DAILY PO Last administered on 05/03/18 08:54; Start 05/02/18 at 09:00 Morphine Sulfate (Ms Contin) 15 mg BID PO Last administered on 05/01/18 20:53; Start 05/01/18 at 21:00; Stop 05/02/18 at 07:28; Status DC Pantoprazole Sodium (Protonix) 40 mg HS PO Last administered on 05/02/18 20:18 ; Start 05/01/18 at 21:00 Trazodone HCl (Desyrel) 50 mg HS PO Last administered on 05/02/18 20:18; Start 05/01/18 at 21:00 Atorvastatin Calcium (Lipitor) 40 mg QHS PO Last administered on 05/02/18 20:28 ; Start 05/01/18 at 21:00 Cyanocobalamin (Vitamin B-12) 2,500 mcg DAILY PO Last administered on 05/02/18 08:33; Start 05/02/18 at 09:00; Stop 05/02/18 at 09:00; Status DC Non-Formulary Medication (Flaxseed/ Omega3,6,9/Fatty Acid (Flax Seed Oil 1,300 Mg Softgel)) 1 each DAILY PO ; Start 05/02/18 at 09:00; Status UNV Gabapentin (Neurontin) 500 mg TID PO Last administered on 05/02/18 08:33; Start 05/02/18 at 09:00; Stop 05/02/18 at 09:00; Status DC Insulin Human Isoph/Insulin Regular (HumuLIN 70/30) 30 units DAILYWSUP SQ Last administered on 05/02/18 17:36; Start 05/01/18 at 18:00 Insulin Human Isoph/Insulin Regular (HumuLIN 70/30) 40 units DAILY SQ Last administered on 05/03/18 08:59; Start 05/02/18 at 09:00 Labetalol HCl (Trandate) 200 mg BID PO Last administered on 05/03/18 08:53; Start 05/01/18 at 21:00 Non-Formulary Medication (Ubidecarenone (Coenzyme Q10)) 100 mg BID PO ; Start at 21:00; Stop 05/01/18 at 21:00; Status DC Oxycodone/ Acetaminophen (Percocet 5/325) 1 tab PRN Q4HRS PRN PO PAIN SEVERE; Start 05/01/18 at 16:45 Morphine Sulfate (Ms Contin) 15 mg [id number] PO Last administered on 05/03/18 05:47 ; Start 05/02/18 at 07:30 Furosemide (Lasix) 40 mg [id number] IVP Last administered on 05/03/18 08:53; Start 05/02/18 at 14:00 Fluticasone Propionate (Flonase) 2 spray DAILY NS Last administered on at 08:54; Start 05/02/18 at 15:35 Active Scripts Active Reported Trazodone Hcl 50 Mg Tablet 50 Mg PO HS Hydrocodone-Apap 5-325 (Hydrocodone Bit/Acetaminophen) 1 Each Tablet 1 Tab PO PRN Q6HRS PRN Morphine Sulfate Er (Morphine Sulfate) 15 Mg Tablet.er 15 Mg PO BID Meloxicam 15 Mg Tablet 15 Mg PO DAILY Colace (Docusate Sodium) 100 Mg Capsule 100 Mg PO DAILY Labetalol Hcl 200 Mg Tablet 200 Mg PO BID Atorvastatin Calcium 80 Mg Tablet 40 Mg PO HS Nitrostat (Nitroglycerin) 0.4 Mg Tab.subl 1 Tab SL UD Pantoprazole Sodium 40 Mg Tablet.dr 1 Tab PO HS Novolin 70-30 100 Unit/Ml Vial (Hum Insulin Nph/Reg Insulin Hm) 100 Unit/1 Ml Vial 30 Unit SQ DAILYWSUP Novolin 70-30 100 Unit/Ml Vial (Hum Insulin Nph/Reg Insulin Hm) 100 Unit/1 Ml Vial 40 Unit SQ DAILY Clopidogrel (Clopidogrel Bisulfate) 75 Mg Tablet 1 Tab PO DAILY Aspirin 325 Mg Tablet 325 Mg PO BID Vital Signs Vital Signs Date Time Temp Pulse Resp B/P (MAP) Pulse Ox O2 Delivery O2 Flow Rate FiO2 05/03/18 10:52 97.9 62 18 133/64 (87) 95 Room Air 97.9 Labs Laboratory Tests Test 05/01/18 14:30 05/01/18 17:57 05/01/18 20:29 05/02/18 07:21 White Blood Count 6.8 x10^3/uL (4.0-11.0) Red Blood Count 4.22 x10^6/uL (4.30-5.70) Hemoglobin 11.1 g/dL (13.0-17.5) Hematocrit 34.6 % (39.0-53.0) Mean Corpuscular Volume 82 fL (79-100) Mean Corpuscular Hemoglobin 26 pg (25-35) Mean Corpuscular Hemoglobin Concent 32 g/dL (31-37) Red Cell Distribution Width 14.6 % (11.5-14.5) Platelet Count 191 x10^3/uL (140-400) Neutrophils (%) (Auto) 72 % (31-73) Lymphocytes (%) (Auto) 17 % (24-48) Monocytes (%) (Auto) 9 % (0-9) Eosinophils (%) (Auto) 1 % (0-3) Basophils (%) (Auto) 1 % (0-3) Neutrophils # (Auto) 4.9 x10^3uL (1.8-7.7) Lymphocytes # (Auto) 1.2 x10^3/uL (1.0-4.8) Monocytes # (Auto) 0.6 x10^3/uL (0.0-1.1) Eosinophils # (Auto) 0.1 x10^3/uL (0.0-0.7) Basophils # (Auto) 0.0 x10^3/uL (0.0-0.2) Sodium Level 135 mmol/L (136-145) Potassium Level 4.5 mmol/L (3.5-5.1) Chloride Level 100 mmol/L (98-107) Carbon Dioxide Level 28 mmol/L (21-32) Anion Gap 7 (6-14) Blood Urea Nitrogen 32 mg/dL (8-26) Creatinine 1.5 mg/dL (0.7-1.3) Estimated GFR (Cockcroft-Gault) 46.7 BUN/Creatinine Ratio 21 (6-20) Glucose Level 144 mg/dL (70-99) Hemoglobin A1c 7.7 % (4.8-5.6) Calcium Level 9.2 mg/dL (8.5-10.1) Magnesium Level 1.9 mg/dL (1.8-2.4) Total Bilirubin 0.6 mg/dL (0.2-1.0) Aspartate Amino Transf (AST/SGOT) 41 U/L (15-37) Alanine Aminotransferase (ALT/SGPT) 57 U/L (16-63) Alkaline Phosphatase 102 U/L (46-116) Troponin I Quantitative < 0.017 ng/mL (0.000-0.055) BG-Krz-B-Type Natriuretic Peptide 2219 pg/mL (0-124) Total Protein 6.5 g/dL (6.4-8.2) Albumin 3.9 g/dL (3.4-5.0) Albumin/Globulin Ratio 1.5 (1.0-1.7) Thyroid Stimulating Hormone (TSH) 1.757 uIU/mL (0.358-3.74) Glucose (Fingerstick) 90 mg/dL (70-99) 165 mg/dL (70-99) 149 mg/dL (70-99) Test 05/02/18 11:29 05/02/18 17:08 05/02/18 20:42 05/03/18 05:11 Glucose (Fingerstick) 201 mg/dL (70-99) 137 mg/dL (70-99) 78 mg/dL (70-99) White Blood Count 8.7 x10^3/uL (4.0-11.0) Red Blood Count 4.87 x10^6/uL (4.30-5.70) Hemoglobin 12.8 g/dL (13.0-17.5) Hematocrit 39.7 % (39.0-53.0) Mean Corpuscular Volume 82 fL (79-100) Mean Corpuscular Hemoglobin 26 pg (25-35) Mean Corpuscular Hemoglobin Concent 32 g/dL (31-37) Red Cell Distribution Width 14.5 % (11.5-14.5) Platelet Count 252 x10^3/uL (140-400) Neutrophils (%) (Auto) 67 % (31-73) Lymphocytes (%) (Auto) 20 % (24-48) Monocytes (%) (Auto) 11 % (0-9) Eosinophils (%) (Auto) 1 % (0-3) Basophils (%) (Auto) 0 % (0-3) Neutrophils # (Auto) 5.8 x10^3uL (1.8-7.7) Lymphocytes # (Auto) 1.7 x10^3/uL (1.0-4.8) Monocytes # (Auto) 1.0 x10^3/uL (0.0-1.1) Eosinophils # (Auto) 0.1 x10^3/uL (0.0-0.7) Basophils # (Auto) 0.0 x10^3/uL (0.0-0.2) Sodium Level 141 mmol/L (136-145) Potassium Level 3.5 mmol/L (3.5-5.1) Chloride Level 102 mmol/L (98-107) Carbon Dioxide Level 27 mmol/L (21-32) Anion Gap 12 (6-14) Blood Urea Nitrogen 21 mg/dL (8-26) Creatinine 1.3 mg/dL (0.7-1.3) Estimated GFR (Cockcroft-Gault) 55.1 BUN/Creatinine Ratio 16 (6-20) Glucose Level 113 mg/dL (70-99) Calcium Level 9.2 mg/dL (8.5-10.1) Magnesium Level 1.9 mg/dL (1.8-2.4) Total Bilirubin 0.6 mg/dL (0.2-1.0) Aspartate Amino Transf (AST/SGOT) 23 U/L (15-37) Alanine Aminotransferase (ALT/SGPT) 47 U/L (16-63) Alkaline Phosphatase 92 U/L (46-116) Total Protein 6.7 g/dL (6.4-8.2) Albumin 3.9 g/dL (3.4-5.0) Albumin/Globulin Ratio 1.4 (1.0-1.7) Test 05/03/18 07:20 05/03/18 11:21 Glucose (Fingerstick) 142 mg/dL (70-99) 265 mg/dL (70-99) Laboratory Tests Test 05/02/18 17:08 05/02/18 20:42 05/03/18 05:11 05/03/18 07:20 Glucose (Fingerstick) 137 mg/dL (70-99) 78 mg/dL (70-99) 142 mg/dL (70-99) White Blood Count 8.7 x10^3/uL (4.0-11.0) Red Blood Count 4.87 x10^6/uL (4.30-5.70) Hemoglobin 12.8 g/dL (13.0-17.5) Hematocrit 39.7 % (39.0-53.0) Mean Corpuscular Volume 82 fL (79-100) Mean Corpuscular Hemoglobin 26 pg (25-35) Mean Corpuscular Hemoglobin Concent 32 g/dL (31-37) Red Cell Distribution Width 14.5 % (11.5-14.5) Platelet Count 252 x10^3/uL (140-400) Neutrophils (%) (Auto) 67 % (31-73) Lymphocytes (%) (Auto) 20 % (24-48) Monocytes (%) (Auto) 11 % (0-9) Eosinophils (%) (Auto) 1 % (0-3) Basophils (%) (Auto) 0 % (0-3) Neutrophils # (Auto) 5.8 x10^3uL (1.8-7.7) Lymphocytes # (Auto) 1.7 x10^3/uL (1.0-4.8) Monocytes # (Auto) 1.0 x10^3/uL (0.0-1.1) Eosinophils # (Auto) 0.1 x10^3/uL (0.0-0.7) Basophils # (Auto) 0.0 x10^3/uL (0.0-0.2) Sodium Level 141 mmol/L (136-145) Potassium Level 3.5 mmol/L (3.5-5.1) Chloride Level 102 mmol/L (98-107) Carbon Dioxide Level 27 mmol/L (21-32) Anion Gap 12 (6-14) Blood Urea Nitrogen 21 mg/dL (8-26) Creatinine 1.3 mg/dL (0.7-1.3) Estimated GFR (Cockcroft-Gault) 55.1 BUN/Creatinine Ratio 16 (6-20) Glucose Level 113 mg/dL (70-99) Calcium Level 9.2 mg/dL (8.5-10.1) Magnesium Level 1.9 mg/dL (1.8-2.4) Total Bilirubin 0.6 mg/dL (0.2-1.0) Aspartate Amino Transf (AST/SGOT) 23 U/L (15-37) Alanine Aminotransferase (ALT/SGPT) 47 U/L (16-63) Alkaline Phosphatase 92 U/L (46-116) Total Protein 6.7 g/dL (6.4-8.2) Albumin 3.9 g/dL (3.4-5.0) Albumin/Globulin Ratio 1.4 (1.0-1.7) Test 05/03/18 11:21 Glucose (Fingerstick) 265 mg/dL (70-99) Allergies Allergies Coded Allergies Type Severity Reaction Last Updated Verified Ohpkwaq-Vin-Fot Reductase Inhibitor Allergy Intermediate 06/30/15 Yes Disposition/Orders: D/C to Home Patient Instructions d/c planning 35 min EMIGDIO HUNTER MD May 03, 2018 12:38
--- NOTE | 2018-05-03 12:39 | DISCH ---
DISCHARGE INSTRUCTIONS Condition on Discharge Condition on Discharge: Stable Activity After Discharge Activity Instructions for Disc: Activity as tolerated Lifting Instructions after Dis: No heavy lifting, No pulling or pushing Exercise Instruction after Dis: Walk 10 min, 3 x per day Driving Instructions after Dis: Do not drive today Weight Bearing Status after Di: As tolerated Diet after Discharge Diet after Discharge: Cardiac, Diabetic No Calorie Level Diet Texture: Regular Checks after Discharge Checks after discharge: Check blood press - daily, Check blood sugar, ac/hs Contacting the DR. after DC Call your doctor for: If your condition worsens Warfarin Follow-Up Warfarin Follow UP: avoid fast foods EMIGDIO HUNTER MD May 03, 2018 12:39
[2018-05-03] MEDS ORDERED: FURO-68 PO (12:44)
--- NOTE | 2018-05-03 15:25 | NUR ---
Discharge Note: BEAR RODRIGUEZ ARAGON Discharge instructions and discharge home medications reviewed with Patient and a copy given. All questions have been answered and understanding verbalized. The following instructions and handouts were given: Edema, cardiac diet, fluid retention and sodium. Discontinued lines and drains: peripheral line. Patient discharged to Home or Self Care with Spouse via Ambulated
== END 2018-05-03 15:36 | disposition home or self-care (01) | DRG 682 ==
LOC: ER 14:03 → 5 NORTH 16:23
PROVIDERS: ADMIT Internal Medicine; ATTEND Internal Medicine
DX: N17.9 Acute kidney failure, unspecified (principal); I50.33 Acute on chronic diastolic (congestive) heart failure; I31.3 Pericardial effusion (noninflammatory); I11.0 Hypertensive heart disease with heart failure; E11.9 Type 2 diabetes mellitus without complications; E66.01 Morbid (severe) obesity due to excess calories; E78.5 Hyperlipidemia, unspecified; I25.10 Atherosclerotic heart disease of native coronary artery without angina pectoris; I25.82 Chronic total occlusion of coronary artery; I27.20 Pulmonary hypertension, unspecified; K21.9 Gastro-esophageal reflux disease without esophagitis; Z82.49 Family history of ischemic heart disease and other diseases of the circulatory system; Z83.3 Family history of diabetes mellitus; Z95.5 Presence of coronary angioplasty implant and graft; M19.90 Unspecified osteoarthritis, unspecified site; Z68.37 Body mass index [BMI] 37.0-37.9, adult; Z88.8 Allergy status to other drugs, medicaments and biological substances
CPT/HCPCS: 36415; 71046; 80053; 82962; 83036; 83735; 83880; 84443; 84484; 85025; 93005; 93970; 96374; J1815; J1940; 99285-25; G0378

== ENCOUNTER → 2019-01-08 | Outpatient (CLI) | payer MEDICARE, OTHER ==
[~2019-01-08] MED LIST changes: +FURO-68 PO; +MORP-15 PO; -MORP15TA3 PO; -NITR0.4T SL; +NITR0.4T24 SL
--- NOTE | 2019-01-08 13:25 | KCIC ---
KNEE BILAT 3V, FOOT BILAT 3V, ANKLE BILAT 3V 01/08/2019 12:00 AM INDICATION: Left foot deformity. Bilateral chronic pain. Bilateral knee arthritis COMPARISON: None available. TECHNIQUE: 3 views of the right, 3 views of the left knee are provided. 3 views of the right and 3 views of the left ankle and foot are provided. FINDINGS: Knees: There is moderate medial femorotibial joint space narrowing involving the left knee with marginal osteophytosis. There is mild patellofemoral and lateral femorotibial joint space narrowing involving the left knee. Small to moderate left knee joint effusion. There is moderate medial femorotibial joint space narrowing with subcortical sclerosis and mild marginal ossified ptosis involving the right knee. There is a moderate right knee joint effusion with mild patellofemoral and lateral femorotibial joint space narrowing. No acute fracture is identified. There is no dislocation. Feet and ankles: There is no acute fracture or dislocation. Tibial plafond and talar dome are intact. Tiny plantar calcaneal enthesophyte noted involving the left ankle. Bilateral midfoot and moderate osteoarthrosis. Joint space narrowing, subcortical sclerosis with subcortical cystic changes and marginal osteophytosis. Bone mineralization is within normal limits. Joint spaces are maintained. Regional soft tissues are within normal limits. There is no soft tissue gas or osseous erosion. IMPRESSION: 1. Moderate medial femorotibial osteoarthrosis bilaterally with small to moderate knee joint effusions bilaterally. 2. No acute fracture or dislocation involving the knees, ankles and feet. 3. Moderate osteoporosis of the midfoot bilaterally. Electronically signed by: Zakia Cruz MD (01/08/2019 1:22 PM) [id number]
== END | disposition home or self-care (01) ==
LOC: KCIC 11:52
PROVIDERS: ATTEND Family Medicine
DX: M81.8 Other osteoporosis without current pathological fracture (principal); M89.49 Other hypertrophic osteoarthropathy, multiple sites; M25.462 Effusion, left knee; M25.461 Effusion, right knee; G89.29 Other chronic pain
CPT/HCPCS: 73562; 73610; 73630